=== PATIENT | female | born 1995 | race African-American/Black ===

== ENCOUNTER 2018-02-22 21:32 | Emergency (ER) | payer OTHER, SELFPAY ==
[2018-02-22 21:33] VITALS: BP 135/95; PULSE 102; RESP 14; TEMP 36.8; O2SAT 97; BMI 39.1
--- NOTE | 2018-02-22 22:21 | ED.VISSUMM ---
- ER Visit Summary Date of Service: 02/22/18 Chief Complaint: Finger injury History of Present Illness: The patient is a 22 F who presents following a kickball accident which she attempted to catch the ball bent her right ring finger backwards. She notes swelling and ecchymosis on the finger. Physical Examination: Afebrile vital signs are stable There is some ecchymosis over the volar aspect at the PIP joint. There is mild swelling. Painful range of motion. Neurovascular intact distally. No other injuries noted. Test Results: X-rays revealed a small pull off fracture the volar aspect of the middle phalanx at the PIP joint. Emergency Department Course and Treatment: Patient will be placed in AlumaFoam splint. [facility] Impression: 1. Right ring finger middle phalanx fracture This note was generated with [employer] dictation software. It may contain incorrect words, spelling, and punctuation that were not noted in review of the chart prior to signing ED Disposition - Plan for ED Patient: Disposition: Home or Assisted Living Chief Complaint: Upper Extremity Injury Instructions: ED Fx Finger Closed Referrals: [facility] [GROUP OF PHYSICIANS] - 1 Week
--- NOTE | 2018-02-22 22:25 | ED.DCSUM_ITS ---
- ER Visit Summary Date of Service: 02/22/18 Chief Complaint: Finger injury History of Present Illness: The patient is a 22 F who presents following a kickball accident which she attempted to catch the ball bent her right ring finger backwards. She notes swelling and ecchymosis on the finger. Physical Examination: Afebrile vital signs are stable There is some ecchymosis over the volar aspect at the PIP joint. There is mild swelling. Painful range of motion. Neurovascular intact distally. No other injuries noted. Test Results: X-rays revealed a small pull off fracture the volar aspect of the middle phalanx at the PIP joint. Emergency Department Course and Treatment: Patient will be placed in AlumaFoam splint. [facility] Impression: 1. Right ring finger middle phalanx fracture This note was generated with [employer] dictation software. It may contain incorrect words, spelling, and punctuation that were not noted in review of the chart prior to signing ED Disposition - Plan for ED Patient: Disposition: Home or Assisted Living Chief Complaint: Upper Extremity Injury Instructions: ED Fx Finger Closed Referrals: [facility] [GROUP OF PHYSICIANS] - 1 Week
[2018-02-22 22:50] VITALS: RESP 16
--- NOTE | 2018-02-22 22:50 | RAD_ITS ---
STUDY: X-RAY - RIGHT HAND REASON FOR EXAM: Female, 22 years old. Fourth digit pain after injury. TECHNIQUE: 3 view(s) of the hand. COMPARISON: None. FINDINGS: Normal radiocarpal articulation. Normal distal radioulnar joint. Normal visualized carpal bones. Normal carpal articulations Normal carpometacarpal articulation of the thumb. Normal second through fifth carpometacarpal joints. Normal metacarpi. Normal metacarpophalangeal joint of the thumb. Normal interphalangeal joint of the thumb. Normal proximal and distal phalanges of the thumb. Normal metacarpophalangeal joints of the second through fifth fingers. Normal proximal and distal interphalangeal joints of the second through fifth fingers. Normal phalanges of the second through fifth fingers. The soft tissue structures are unremarkable. RAD/Hand Min 3 Views IMPRESSION: Normal x-ray examination of the hand. Electronically Signed: Guru Douglas MD at 22:18 EDT Tel , Service support ,
== END 2018-02-22 22:50 | disposition home or self-care (01) ==
PROVIDERS: Emergency Provider Emergency Medicine; Family Provider Student in an Organized Health Care Education/Training Program; PCP Student in an Organized Health Care Education/Training Program
DX: S62.624A Displaced fracture of middle phalanx of right ring finger, initial encounter for closed fracture (principal); X50.1XXA Overexertion from prolonged static or awkward postures, initial encounter; Y93.9 Activity, unspecified; Y92.9 Unspecified place or not applicable; Z72.0 Tobacco use
CPT/HCPCS: 73130; 99283

== ENCOUNTER 2019-10-25 22:46 | Emergency (ER) | payer OTHER, SELFPAY ==
[2019-10-25 22:47] VITALS: BP 124/88; PULSE 113; RESP 16; TEMP 36.8; O2SAT 99; BMI 43.8
--- NOTE | 2019-10-25 23:13 | ED.VIS.GEN ---
History of Present Illness Chief Complaint: Vag Bld, Preg Narrative: Patient is a 24-year-old female who presents with lower abdominal pain and vaginal bleeding. She is 17 weeks . She is G1, P0. She has had ultrasounds confirming an intrauterine . She had sexual intercourse last night. Today she was having midline lower abdominal pain and noticed spotting. She notes this is much chief underwriter than a period. No clots. She does report some urinary urgency and frequency. No dysuria. No fevers nausea or vomiting. Past Medical History - Allergies and Home Meds Allergies/Adverse Reactions: Allergies coconut Allergy (Verified 10/25/19 22:49) Rash sertraline HCl [From Zoloft] Adverse Reaction (Verified 10/25/19 22:49) Other Primary Care Physician: Franki Anna DO [Primary Care Provider] - Past Medical History: None Surgical History: no surgical history Smoking Status: Current every day smoker - Family History Maternal Family History: Reports: Heart Disease, Stroke Review of Systems All systems negative except as indicated General: Denies: Fever Eyes: Denies: Visual changes - bilaterally ENT: Denies: Bilateral ear pain Cardiovascular: Denies: Chest pain Respiratory: Denies: Dyspnea Gastrointestinal: Reports: Abdominal pain. Denies: Nausea, Vomiting, Diarrhea Genitourinary: Reports: Frequency. Denies: Dysuria Skin: Denies: Rash Neurological: Denies: Headache Hematologic: Denies: Easy bruising Allergy: Denies: Uticaria Physical Exam Vital Signs/Narrative: Vital Signs Temp Pulse Resp BP Pulse Ox 10/25/19 22:47 98.2 F 113 H 16 124/88 H 99 Inital Vital Signs reviewed: Yes General: Well nourished Head: Normocephalic Eyes: EOMI ENT: Moist mucous membranes Neck: Supple Cardiovascular: Regular rate, Regular rhythm Respiratory: No distress, CTA bilaterally Abdomen: Soft, - - Mild midline lower abdominal tenderness, no guarding, no rebound, no right lower quadrant tenderness Extremities: Nontender Skin: Normal color Neurological: Alert Psychological: Normal affect Diagnostic/Tx/Re-eval Laboratory Results 10/25/19 23:20 Urine Color Yellow Urine Clarity Sl. Cloudy Urine pH 6.0 Ur Specific Brea 1.020 Urine Protein Negative Urine Glucose (UA) Normal Urine Ketones 5 H Urine Occult Blood Negative Urine Nitrite Negative Urine Bilirubin Negative Urine Urobilinogen Normal Ur Leukocyte Esterase 25 H Urine RBC 0 SEEN Urine WBC 0-5 SEEN Ur Squamous Epith Cells 0-5 SEEN Amorphous Sediment 1+ Urine Bacteria 0 SEEN Urine Mucus 0 SEEN - Medical Decision Making Bedside transabdominal [id number] ultrasound shows an intrauterine with heart rate of 136-140. UA not consistent with cystitis. Patient was reassured. Her spotting was most likely related to cervical friability. 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 She understands to return for new or worsening symptoms. All questions answered at bedside patient discharged. ED Disposition - Plan for ED Patient: Disposition: Home or Assisted Living Diagnosis: Vaginal bleeding during Referrals: Franki Anna DO [Primary Care Provider] - Additional Instructions: You were seen today due to vaginal bleeding during . Avoid intercourse, do not place anything in her vagina. Follow-up with your high school business teacher. Return for new or worsening symptoms.
[2019-10-25 23:34] LABS: Bacteria 0 SEEN /hpf (None Seen); Mucous, Urine 0 SEEN /hpf (<or=2+); Red Blood Cells-Urine 0 SEEN /hpf (0-5)
[2019-10-25 23:43] LABS: Color, Urine Yellow (Yellow); Glucose, Dipstick Normal (Normal); Ketone-Dipstick 5 mg/dl (Negative); Leukocyte Esterase-Dipstick 25 /ul (Negative); Nitrite-Dipstick Negative (Negative); Occult Blood-Urine Negative /ul (Negative); Protein-Dipstick Negative (Negative); Urine Bilirubin Dipstick Negative (Negative); Urine Clarity Sl. Cloudy (Clear); Urine Urobilinogen Normal (Normal)
[2019-10-25 23:56] LABS: White Blood Cells 0-5 SEEN /hpf (0-5)
[2019-10-25 23:57] LABS: Amorphous Sediment 1+; Squamous Epithelial Cells - UA 0-5 SEEN /hpf (5-10)
[2019-10-26 00:22] VITALS: BP 122/84; PULSE 88; RESP 16; O2SAT 97
== END 2019-10-26 00:23 | disposition home or self-care (01) ==
PROVIDERS: Emergency Provider Emergency Medicine; Family Provider Student in an Organized Health Care Education/Training Program; PCP Student in an Organized Health Care Education/Training Program
DX: O20.9 Hemorrhage in early pregnancy, unspecified (principal); O99.332 Smoking (tobacco) complicating pregnancy, second trimester; F17.200 Nicotine dependence, unspecified, uncomplicated; Z3A.17 17 weeks gestation of pregnancy
CPT/HCPCS: 81001; 99282

== ENCOUNTER 2020-03-12 04:45 | Inpatient (IN) | payer OTHER, MEDICAID, SELFPAY ==
--- NOTE | 2020-03-09 08:09 | PCM.HP.BLA ---
History and Physical Date of Admission: 03/12/20 Rosemarie Wilson Physician [employer]SM[employer]ION TECHNICIAN H&P Signed Encounter Date: 03/06/2020 Expand All Collapse All Hide copied text Dexter for details Daniella Raygoza is a 24 year old female who presents for PRE OP for C/S. Breech, uncontrolled GDMA and IUGR. Reviewed option for ECV but patient would like to proceed with PRIMARY CS. ? Consent signed today. Pt offers no concerns. ? PAST MEDICAL HISTORY PAST MEDICAL HISTORY Diagnosis Date ? Anxiety ? ? Asthma ? ? childhood ? Gestational diabetes mellitus, class A1 02/26/2020 ? Major depression ? ? Prolactin increased ? ? PAST SURGICAL HISTORY PAST SURGICAL HISTORY Procedure Laterality Date ? PAST SURGICAL HISTORY OF ? ? ? wisdom teeth ? FAMILY HISTORY FAMILY HISTORY Problem Relation Age of Onset ? Heart Mother ? ? valve replaced/endocarditis ? No Known Problems Father ? ? No Known Problems Brother ? ? No Known Problems Sister ? ? No Known Problems Maternal Grandmother ? ? Heart Maternal Grandfather ? ? other (Other) Paternal Grandmother ? ? Bels palsy ? No Known Problems Paternal Grandfather ? ? SOCIAL HISTORY Social History ? Tobacco Use ? Smoking status: Current Every Day Smoker ? ? Years: 6.00 ? ? Last attempt to quit: 08/13/2019 ? ? Years since quittin.5 ? Smokeless tobacco: Never Used ? Tobacco comment: 2 cigarettes a day Substance Use Topics ? Alcohol use: Not Currently ? ? Comment: occasionally-mixed drinks ? Drug use: Never ? CURRENT MEDICATIONS Current Outpatient Medications Medication Sig ? blood sugar diagnostic test strip 1 Strip four times daily. Use as instructed ? Lancets lancets 1 Each four times daily. Use as instructed ? Urine Glucose-Ketones Test (KETO-DIASTIX) strp 1 Strip four times daily. ? Lryohtna-Xm-Zdl-Fe-FA ( VITAMIN) tab Take 1 tablet by mouth. ? No current facility-administered medications for this visit. ? Allergies As of Date: 03/06/2020 Allergen Noted Reaction CELEXA [CITALOPRAM HYDROBROMIDE] 12/09/2015 Other: See Comments COCONUT 10/17/2016 Rash LEXAPRO [ESCITALOPRAM] 12/09/2015 Other: See Comments ZOLOFT [SERTRALINE HCL] 06/11/2014 Other: See Comments ? Fully Assessed 03/06/2020 ? ? REVIEW OF SYSTEMS Abdomen: no pain .. Expanded ROS: GENERAL: Negative for fever Allergies and current medication updated:Yes ? EXAM: BP 122/80 Wt 297 lb (134.7kg) LMP 06/13/2019 GENERAL: pleasant, female in no apparent distress HEENT: Normocephalic and atraumatic NECK: full range of motion DERMATOLOGY: Normal, without lesions, non-icteric and non-hirsute ABDOMEN: Soft, non tender- Gravid PELVIC: closed/thick- narrow pelvis NEURO: alert and oriented x3,exam grossly non-focal EXTREMITIES: normal ? ASSESSMENT AND PLAN: Encounter Diagnosis ? ? ICD-10-CM ? 1. Visit for screening Z36.9 URINE OB DIP B/O ? ? ROUTINE, GROUP B STREP PCR 2. 36 weeks gestation of Z3A.36 URINE OB DIP B/O ? ? ROUTINE, GROUP B STREP PCR 3. Gestational diabetes mellitus (GDM) in third trimester, gestational diabetes method of control unspecified O24.419 ? 4. Intrauterine growth restriction (IUGR) affecting care of mother, third trimester, single or unspecified fetus O36.5930 ? 5. Breech presentation with problem, single or unspecified fetus O32.1XX0 ? ? Pt has been counseled on risks/benefits and alternatives of surgery including but not limited to anesthesia, bleeding, infection, injury to pelvic structures including bowel, bladder, ureters and vessels. Pt wishes to proceed with surgery at this time. ? ECV reviewed with patient- declined. Wishes to proceed with Primary cs. ? ? Rosemarie Reeder MD ?2:34 PM Routine Office Visit on 03/06/2020
[2020-03-12] VITALS (23 sets, daily range): BP systolic 106–140; BP diastolic 57–93; PULSE 72–100; RESP 14–20; TEMP 36.1–36.7; O2SAT 95–100; BMI 49.7
--- NOTE | 2020-03-12 | PLAC_PTH ---
PATIENT: COL[place]EN [place] LOC: [facility] U#:[id number] AGE/SX: 24/F ROOM: WP005 RE03/12/[address]: Dr. Claudette Barakat DO : 1995 BED: 1 DIS: 03/13/2020 SPEC #: [id number] RECD: 03/12/20 11:08 STATUS: ROSAURA RERip #: [id number] BRENDAN: 03/12/20 00:[address]: Claudette Barakat DEPT: SURGICAL PATHOLOGY RECD BY: Sunday Ortiz ENTERED: 03/13/20 10:17 SP TYPE: PLACENTA OTHR DR: Dr. Franki Anna DO Tissues: Placenta, NOS Procedures: Surgery Specimen Level V HEADER OPERATION: Primary section PRE-OP DIAGNOSIS: Labor and delivery TISSUE SUBMITTED: Placenta MICROSCOPIC DIAGNOSIS Placenta: Placental disc - third trimester placenta (455 gm). Membranes - no pathologic diagnosis. Umbilical cord - three blood vessels and no pathologic diagnosis. SJ:asha 03/16/20 MICROSCOPIC DESCRIPTION Slides are reviewed. GROSS DESCRIPTION SPECIMEN: PLACENTA / CLINICAL INFORMATION: A. Weight: 2.632 kg B. Gestational Age: 37 weeks C. Sex: Female PLACENTAL WEIGHT (POST FIXATION): 455 gm PLACENTAL DIMENSIONS: 15 x 16 x 3 cm PLACENTAL SHAPE: Usual ovoid PLACENTAL WEIGHT FOR GESTATIONAL AGE: Within 10-99th percentile MEMBRANES - Present A. Insertion: Marginal B. Site of rupture from edge: 4 cm from edge of placental disc C. Color of membrane: [place] D. Abnormalities: None UMBILICAL CORD - Present A. Color: [place] B. Insertion: Marginal C. Length: 32 cm D. Diameter: 1.1 cm E. Number of vessels: Three F. Abnormalities: None PLACENTAL DISC - Present A. Color of surface: [place] B. surface abnormalities: None C. Maternal cotyledons: Intact with minimal tears D. Attached retro placental clot: No clot E. Cut surface: Dark red and spongy F. Lesions: None G. Separate clot: Absent SECTIONS SUBMITTED: 1. Membrane roll 2. Cord, maternal end 3. Cord, end 4. Placental disc, and maternal surfaces 5. Placental disc, and maternal surfaces 6. Placental disc, and maternal surfaces SJ:asha 03/13/20 TC:4 CPT: 36606
[2020-03-12] MEDS: Lactated Ringers 1,000 ML 999 ML IV (05:10)
[2020-03-12 05:27] LABS: Absolute Lymphocyte Count 2.94 X10^3/uL (0.83-4.51); Absolute Neutrophil Count 10.3 X10^3/uL (2.0-7.7); Basophil# 0.03 X10^3/uL; Basophil% 0.2 % (0-1); Eosinophil# 0.11 X10^3/uL; Eosinophils% 0.7 % (0-5); Hematocrit 33.5 % (37-47); Hemoglobin 11.7 g/dL (12.0-15.0); Lymphocyte # 2.94 X10^3/ul (4.0); Lymphocyte % 19.9 % (19-41); Mean Corp Hgb Conc 34.9 g/dL (32-36); Mean Corpuscular Hgb 32.9 pg (27.0-32.0); Mean Corpuscular Volume 94.1 fL (81-99); Mean Platelet Vol. 9.6 fl (6.2-12.0); Monocyte# 1.16 X10^3/uL; Monocyte% 7.9 % (0-10); NRBC Flagged by Analyzer 0 % (0-5); Neutrophil # 10.33 X10^3/uL (2.7-7.7); Neutrophil % 70.1 % (47-70); Platelet Count 232 K/mm3 (150-450); RBC Distribution Width SD 43.4 fl (35.1-43.9); Red Blood Count 3.56 M/mm3 (4.2-5.4); White Blood Count 14.7 K/mm3 (4.4-11.0)
[2020-03-12] MEDS: Lactated Ringers 1,000 ML 150 ML IV (06:12)
[2020-03-12 06:16] LABS: Bedside Glucose 119 mg/dL (70-110)
[2020-03-12] MEDS: Sodium Citrate/Citric Acid 30 ML UDC PO (07:02)
--- NOTE | 2020-03-12 07:04 | PCM.PN.BLA ---
Progress Note At bedside for ultrasound- breech presentation. Reviewed r/b/a of a section and patient desires to proceed with surgery.
--- NOTE | 2020-03-12 07:18 | NURSING ---
Dr Barakat at bedside and performed bedside US for position. Fetus remains breech. Pt desires primary section. Dr Barakat informed of BS of 119.
[2020-03-12] MEDS: Oxytocin 30 units/NS 500 ml 30 UNITS/500 ML IV.SOLN 167 UNITS IV (08:42)
--- NOTE | 2020-03-12 08:46 | OP.PCM_ITS ---
Problem List (1) 37 weeks gestation of Status: Acute (2) Breech presentation Status: Acute (3) IUGR (intrauterine growth restriction) Status: Acute (4) Gestational diabetes Status: Acute (5) Obesity affecting Status: Acute (6) Hyperprolactinemia Status: Acute (7) History of depression Status: Acute (8) Tobacco use Status: Acute Report of Operation Date of Procedure: 03/12/20 Pre-Operative Diagnosis: 37 week gestation, IUGR, breech presentation, uncontrolled gestational diabetes Post-Operative Diagnosis: As above Surgery/Procedure Performed:: PLTCS via pfannenstiel incision Description of Surgical Findings:: Normal-appearing uterus, bilateral tubes, bilateral ovaries. Clear fluid. Viable female infant in breech presentation. Normal and intact appearing placenta with three-vessel cord. Type of Anesthesia:: Spinal Special Medications: None Specimen's removed: Placenta Drains: You Estimated Blood Loss (mL): 700 Description of Procedure: Reviewed risks, benefits, alternatives to and patient consented to a section. She was taken back to the operating room where spinal anesthesia was found to be adequate. She was prepped and draped in the dorsal position with a leftward tilt. A Pfannenstiel skin incision was made with a scalpel and the incision was carried down to the underlying layer of fascia. The fascia was incised in the midline. Fascia was extended laterally using Dale scissors. The fascia was dissected off of the rectus muscles. Rectus muscles were in the midline. The peritoneum was entered bluntly with good visualization of the bladder. The incision was extended bluntly. A bladder flap was created. A low transverse incision was made on the uterus. Membranes were ruptured for clear fluid. The buttocks of the was elevated, and the was delivered in breech position without any force or delay. Delayed cord clamping was performed. The baby was handed off to the nursery staff. Placenta was delivered with manual extraction and was normal-appearing with a three-vessel cord. Cord gases were collected. Placenta was sent to pathology for review. The uterus was cleared of all clot debris. The uterus was exteriorized from the abdomen. The uterus was closed in a running locked fashion. Hemostasis was noted. Uterus was placed back in the abdomen. The peritoneum was closed in a running fashion. The fascia was closed in a running fashion. Subcutaneous space was irrigated and made hemostatic with Bovie cautery. The subcutaneous was reapproximated. The skin was closed in a subcuticular fashion. Steri-Strips and dressing were placed. Instrument counts were correct. Patient was taken recovery room in stable condition. Grafts/Implants Used: None - Complications None - Admit VTE Documentation VTE Present on Admission: No VTE Mechan Device Prophylaxis: SCD's Delivery Classification: Scheduled Final CHARLI: 04/02/20 Gestational age: 37 Weeks and 0 Days Indications for : Breech Amniotic Membrane Rupture Type: Artificial Amniotic Fluid Description: Clear Placenta Disposition: [facility] Drain: You to straight drain Cord Entanglement: None Cord Vessel Description: 3 Vessels Infant Gender: Female (1 minute): 8 (5 minute): 9 Delayed cord clamping: Yes Pt instructed on risks of surgery: Bleeding, Infection, Need for Future C- Sections, Injury to surrounding structure(s) including bowel and bladder Complications: None - Admit VTE Documentation VTE Present on Admission: No VTE Mechan Device Prophylaxis: SCD's VTE Pharm Prophylaxis ordered?: Yes
--- NOTE | 2020-03-12 09:36 | PCM.PN.BLA ---
Progress Note Patient has a history of hyperprolactinemia. She was following with endocrinology during the . She had an MRI without contrast that did not show a pituitary adenoma. She had follow-up with endocrinology on February 23, and at that time endocrinology discussed risks of breast-feeding with her. Endocrinology noted that she could have growth of an adenoma if present as well as vision loss if she decided to breast-feed. The patient was instructed to call endocrinology if she desired to breast-feed. The patient did not follow-up or call endocrinology, but she desires to breast-feed. Discussed with patient that the MRI was without contrast in , and therefore an adenoma could be missed. Reviewed risks of breast-feeding again with patient which could include growth of adenoma and vision loss. Called endocrinology and left message to discuss plan. Waiting for endocrinology to call back regarding the patient breast-feeding. Discussed with nurse and .
[2020-03-12] MEDS: Lactated Ringers 1,000 ML 100 ML IV (10:37)
[2020-03-12 10:50] LABS: Bedside Glucose 122 mg/dL (70-110)
[2020-03-12 11:10] LABS: Pathology Specimen OB SEE PATHOLOGY REPORT
[2020-03-12] MEDS: Ketorolac 30 MG/ML Syringe IV ×2 (14:02→20:12)
[2020-03-12] MEDS: Ondansetron 4 MG/2 ML Vial IV (16:04)
--- NOTE | 2020-03-12 19:16 | PCM.PN.BLA ---
Progress Note Late entry. Discussed plan of care with endocrinology. Endo recommends formula feeding at this time due to risk of vision loss with . Plan will be for repeat MRI with contrast in a few months. Patient understands that is not recommended at this time. She understands that this could lead to permanent vision loss. She was instructed to notify us of new headaches or visual changes. STROKE Vital Signs/Narrative: Vital Signs Temp Pulse Resp BP Pulse Ox 03/12/20 17:16 86 18 99 03/12/20 16:16 80 20 H 100 03/12/20 16:07 98 F 72 16 123/79 H 100
[2020-03-12] MEDS: Enoxaparin 40 MG/0.4 ML Syringe SC (20:16)
[2020-03-13] MEDS: DiphenhydrAMINE 25 MG Capsule PO (00:38)
[2020-03-13] MEDS: Ketorolac 30 MG/ML Syringe IV ×3 (02:40→15:40)
[2020-03-13] MEDS: 0.9% Saline Lock 10 ML Syringe IV ×3 (02:40→15:39)
[2020-03-13 02:43] VITALS: PULSE 78; RESP 18; O2SAT 100
[2020-03-13 05:31] LABS: Hemoglobin 11.5 g/dL (12.0-15.0); Mean Corp Hgb Conc 32.9 g/dL (32-36); Mean Corpuscular Hgb 31.6 pg (27.0-32.0); Mean Corpuscular Volume 96.2 fL (81-99); Mean Platelet Vol. 9.4 fl (6.2-12.0); Platelet Count 223 K/mm3 (150-450); RBC Distribution Width CV 12.8 % (11.6-14.6); RBC Distribution Width SD 44.1 fl (35.1-43.9); Red Blood Count 3.64 M/mm3 (4.2-5.4); White Blood Count 13.3 K/mm3 (4.4-11.0)
[2020-03-13 05:36] LABS: Scan Indicated on CBC? Y/N NO
[2020-03-13] MEDS: Enoxaparin 40 MG/0.4 ML Syringe SC (08:08)
--- NOTE | 2020-03-13 10:50 | DCINST_ITS ---
Discharge Diet: No Restrictions Discharge Activity: May not drive while taking narcotic pain medications., May Shower May resume sexual activity in: 6 weeks Weight Bearing Status: Weight bearing as tolerated Call your doctor if your incision/area has: Continuous Slow Oozing, Sudden Increased Bleeding, Increased Pain/ Swelling, Increased Redness, Foul Smelling Discharge, Swelling at the incision site Suture Line Care: Avoid Pulling/Pushing, Avoid Pinching/Bending Cleanse incision/area with: Soap & Water Additional Instructions: If you experience any of the following, contact your healthcare provider. * Bleeding that soaks a pad every hour for 2 hours * Fever 100.4 or higher * Unrelieved incision or abdominal pain * Swelling, redness, discharge or bleeding from your incision or episiotomy site * Your incision begins to separate * Problems urinating (including inability to urinate or burning while urinating). * Visual changes * Severe headache * Flu-like symptoms * Pain or redness in one of both of your breasts * Pain, warmth, tenderness or swelling in your legs, especially the calf area * Frequent nausea and vomiting * Symptoms of depression or anxiety If you experience any of the following, call 911 or go to the nearest Emergency Room. * Chest pain * Problems breathing * Seizure activity * Partial or complete paralysis of a body part, slurred speech, weakness or drooping of the face, or a sudden inability to walk or hold your balance * * Please check a FBS daily over the next few days. Please call or message the office with these on Monday. Also please schedule a 2 week check with the office. Allergies/Adverse Reactions: Allergies coconut Allergy (Verified 03/12/20 05:15) Rash sertraline HCl [From Zoloft] Adverse Reaction (Verified 10/25/19 22:49) Other Medications to take at Discharge Pnv No.95/Ferrous Fum/Folic AC [ Formula Tablet] 1 ea PO DAILY 10/25/19 Acetaminophen [Tylenol] 1,000 mg PO Q8H PRN tablet 03/13/20 Ibuprofen 800 mg PO Q8H PRN PRN #30 tab 03/13/20 Oxycodone [Oxyir] 5 mg PO Q6H PRN PRN 5 Days #20 tab 03/13/20 The following prescriptions were given: Ibuprofen 800 mg PO Q8H PRN PRN #30 tab PRN Reason: Pain Score 1-5/10 Transmission Status: Pending to [facility] Oxycodone [Oxyir] 5 mg PO Q6H PRN PRN 5 Days #20 tab PRN Reason: Pain Score 4-10/10 Transmission Status: Sent to [facility] Follow-Up: Call to make an appointment with your doctor for an incision check in 1-2 weeks. You will also need a 6 week post- follow up appointment. Test results from this visit will be discussed in further detail at your follow- up appointment, if applicable. Primary Care Physician: Franki Anna DO [Primary Care Provider] -
--- NOTE | 2020-03-13 10:52 | PCM.PN.OB ---
Patient Problems: Active and Suspected Problems 37 weeks gestation of (Acute) Breech presentation (Acute) IUGR (intrauterine growth restriction) (Acute) Gestational diabetes (Acute) Obesity affecting (Acute) Hyperprolactinemia (Acute) History of depression (Acute) Tobacco use (Acute) Subjective: No complaints. She requests discharge today. - Physical Exam Vitals/I&O's: Vital Signs Temp Pulse Resp BP Pulse Ox 97 F L 78 18 109/78 100 03/12/20 23:56 03/13/20 02:43 03/13/20 02:43 03/12/20 23:56 03/13/20 02:43 Oxygen Delivery Method Room Air Weight: 299 lb Body Mass Index (BMI) 49.7 Finger Stick Blood Glucose 131 Intake and Output for Last 24 Hours 03/11/20 03/12/20 03/13/20 23:59 23:59 23:59 Intake Total 3559 / 3559 Output Total 1200 / 1200 800 / 800 Balance 2359 / 2359 -800 / -800 General: Alert, Oriented x3 Abdomen: Soft, Non Tender, Non-Distended - ff mid & below umb; incision - bandage c/d/i Extremities: No Calf Tenderness Neurological: Cranial nerves II-XII grossly intact Psych/Mental Status: Normal Affect Laboratory Results 03/13/20 05:25: WBC 13.3 H, RBC 3.64 L, Hgb 11.5 L, Hct 35.0 L, MCV 96.2, MCH 31.6, MCHC 32.9 D, RDW Std Deviation 44.1 H, RDW Coeff of Srinivas 12.8, Plt Count 223, MPV 9.4 Current Medications Acetaminophen (Tylenol) 1,000 mg PO Q8H PRN PRN Reason: Pain Score 1-3/10 Bisacodyl (Dulcolax) 10 mg RECTAL UD PRN PRN Reason: If no BM Enoxaparin Sodium (Lovenox) 40 mg SC BID REPLACED BY [facility] Last Admin: 03/13/20 08:08 Dose: 40 mg Documented by: Hydrocortisone (Hytone) 1 applic TOPICAL TID PRN PRN; Protocol PRN Reason: Discomfort Lactated Ringer's () 1,000 mls @ 100 mls/hr IV .Q10H REPLACED BY [facility] Last Admin: 03/12/20 20:17 Dose: Not Given Documented by: Naloxone HCl 4 mg/ Dextrose 504 mls @ 0 mls/hr IV .Q0M PRN; Protocol PRN Reason: To maintain Resp. rate >10 Ibuprofen (Motrin) 600 mg PO Q6H PRN PRN PRN Reason: Pain Score 1-3/10 Ketorolac Tromethamine (Toradol (Bkc)) 30 mg IV Q6H JOLANTA Stop: 03/14/20 09:01 Last Admin: 03/13/20 08:08 Dose: 30 mg Documented by: Methylergonovine Maleate (Methergine) 0.2 mg IM X1 PRN PRN Reason: Uterine Atony Naloxone HCl (Narcan) 0.02 mg IV Q1M PRN PRN Reason: RR <10 and pt unresponsive Ondansetron HCl (Zofran) 4 mg IV Q4H PRN PRN PRN Reason: Nausea Last Admin: 03/12/20 16:04 Dose: 4 mg Documented by: Oxycodone HCl (Oxyir) 5 - 10 mg PO Q4H PRN PRN PRN Reason: Pain Score 4-10/10 Prochlorperazine Edisylate (Compazine Iv) 10 mg IV Q6H PRN PRN PRN Reason: NAUSEA Senna/Docusate Sodium (Senokot-S, Jennifer-Colace) 0 tablet PO DAILY PRN PRN Reason: Constipation Simethicone (Mylicon) 80 mg PO PCHS PRN PRN Reason: Indigestion/stomach pain Sodium Chloride () 5 - 15 ml IV UD PRN PRN Reason: SALINE FLUSH Last Admin: 03/13/20 08:14 Dose: 10 ml Documented by: Medical Necessity - Tobacco Use Smoking Status: Light Smoker (<10/day) Assessment/Plan All Active Problems (Last Reviewed 03/13/18 @ 13:35 by Joaquina Suarez) 37 weeks gestation of (Acute) Breech presentation (Acute) IUGR (intrauterine growth restriction) (Acute) Gestational diabetes (Acute) Obesity affecting (Acute) Hyperprolactinemia (Acute) History of depression (Acute) Tobacco use (Acute) Closed displaced fracture of middle phalanx of right ring finger (Acute) Closed fracture of middle phalanx of right ring finger (Acute) POD#1 Heme - HDS, CBC reviewed ID - AF, no signs infection GI/ - no issues Hyperprolactinemia - patient again advised on risks of (permanent vision loss) and advised to f/u with endocrinology GDM - patient to check FBS at home over the next few days & message results to office D/c home later today per patient request
--- NOTE | 2020-03-13 11:58 | CASEMGMT ---
Social Work Assessment Labor and Delivery Unit Date of Referral: 03/12/2020 Time of Referral: 15:20 Referred By: Dr Claudette Barakat Date of Intervention: 03/13/2020 Time of Intervention: 11:42 Reason for Referral: Mother of baby (MOB) with history of depression. History obtained from: Chart, MOB, nursing staff. Household composition: MOB, Father of baby (FOB) and now this . Patient's parent/guardian status: MOB and FOB, Clementina Lemus have been together for two years. This is first for both parents. Infants name is to be Angel Lemus. MOB and FOB rent a home together. Medical History: MOB . MOB with primary CS due to breech baby at 37 weeks gestation. Medical diagnosis for MOB include depression and Hyperprolactinemia. Per medical team, Hyperprolactinemia puts MOB at risk for developing a tumor if MOB breast feeds. MOB stating plan to breast feed and is aware of medical risk to self. Per medical team there are no risk to with breast feeding. MOB stating that breast feeding is going well. Infant with 's of 8 and 9 at 1 and 5 minutes. Infant with weight of 2632g. Educational Status: MOB stating to have obtained GED. MOB denies any concerns with comprehension or understanding. Financial Status: MOB denies any issues/concerns. MOB and FOB have been laid off work since end of January 2020 due to COVID-19. MOB stating we have savings. MOB and FOB both plan to return to working full-time when able. MOB does plan to take full maternity leave. Infant Supplies: MOB stating to have all needed infant supplies including a crib and car seat. Childcare/Caregiver(s): MOB plans to be main caregiver for until MOB returns to work. MOB's cousin then plans to watch infant when MOB is working. MOB stating that MOB's cousin has a daycare. Transportation: Denies any issues/concerns. Programs/Agencies Involved: Connected with local S for medical. Denies need for WIC but aware of how to apply if need would arise. Explained [facility] program, MOB is interested and open to this social worker health services making referral. Confirmed MOB's address and phone number. Children Services/Legal Issues: MOB denies any legal issues or concerns with either MOB or FOB. MOB stating to feel safe with FOB. Mental Health History: MOB stating to have a history of depression in 2016 when MOB's mother . MOB also with history of suicidal thoughts in 2018, no attempts or hospitalizations. MOB stating to have taken medication in the past for mental health but to no longer take medication for awhile as MOB does not like how they make me feel. MOB stating to believe that MOB is doing well and has been able to talk with support system when MOB is feeling down or depressed. MOB stating that it is helpful to speak with others when MOB is feeling down and that it helps. MOB educated on signs and symptoms of depression and also aware of risk for MOB. MOB stating to have discussed risked with OBGYN in the past as well. MOB provided with information on depression. Substance Use History: MOB is a light tobacco smoker. MOB stating prior to MOB was smoking 1 ppd and is now down to 1-3 a day. MOB stating to not be sure what will happen now that MOB has had . MOB aware of risk of smoking around and is stating to only smoke outside of the home. MOB stating that FOB does not smoke. MOB denies any other substance abuse/use for MOB or FOB. Family History: MOB denies any mental health history of FOB. Maternal and Drug Screens: None completed. Family/Social Stressors: MOB denies any current stressors. This social worker health services did take a moment to broach topic of MOB's mother passing and what emotions MOB may or may not be feeling now with . MOB voicing understanding and stating to be aware of current emotions with infant now in MOB's life and MOB's maternal grandmother not being able to meet . MOB and this social worker health services able to have an open discussion about this and also brought up depression risk in regards to this as well. MOB open to this conversation with this social worker health services. Support Systems: MOB stating to have Many family members. MOB stating that FOB is a positive support as well as MOB's sister and FOB's parents. Depression and Anxiety/Shaken Baby/Safe Sleeping: MOB provided with resources on depression and anxiety, Shaken baby, Safe Sleeping, [facility]. Conversation/education about Shaken Baby and Safe Sleeping was broached with MOB, MOB receptive. ASSESSMENT: Met with MOB in room. Introduced self as well as social worker health services role. currently in nursery obtaining testing. MOB stating to have a connection with infant. MOB stating that was not planned but accepted. MOB presenting with a positive and engaged affect. MOB denies any needs or concerns with returning to home. MOB is hoping to be able to discharge to home with infant on this day, nursing staff is aware of MOB's request. MOB stating things are going well. MOB smiling often towards this social worker health services with appropriate affect to current topic of conversation. MOB voicing no further needs/concerns. Safe Plan of Care for infant related to substance use: MOB planning to smoke outside of the home. Interventions: Social Work assessment Resources provided [facility] referral made. PLAN: Infant to discharge to home with MOB and FOB. No other services requested or indicated. Luicnda HIGH, ROSANNE
[2020-03-13] MEDS: Ibuprofen 600 MG Tablet PO (13:35)
[2020-03-13 15:00] VITALS: BP 132/89; PULSE 80; RESP 16; TEMP 36.8
[2020-03-13 15:40] VITALS: BP 143/82; PULSE 75
== END 2020-03-13 17:05 | disposition home or self-care (01) | DRG 787 ==
PROVIDERS: Admitting Provider Obstetrics & Gynecology; PCP Student in an Organized Health Care Education/Training Program; Referring Provider Obstetrics & Gynecology; Visit Provider Obstetrics & Gynecology
PROC: 10D00Z1 Extraction of Products of Conception, Low, Open Approach (ICD-10-PCS; CPT 59514; principal; 2020-03-12 07:15)
DX: O32.1XX0 Maternal care for breech presentation, not applicable or unspecified (principal); E22.1 Hyperprolactinemia; O99.284 Endocrine, nutritional and metabolic diseases complicating childbirth; O24.429 Gestational diabetes mellitus in childbirth, unspecified control; O36.5930 Maternal care for other known or suspected poor fetal growth, third trimester, not applicable or unspecified; Z3A.37 37 weeks gestation of pregnancy; Z37.0 Single live birth; O99.334 Smoking (tobacco) complicating childbirth; F17.210 Nicotine dependence, cigarettes, uncomplicated; M95.5 Acquired deformity of pelvis
CPT/HCPCS: 82962; 85025; 85027; 86850; 86900; 86901; 88307; 99218; J7120; A4216; G0378; J2405

== ENCOUNTER 2021-07-27 11:32 | Emergency (ER) | payer MEDICAID, SELFPAY ==
[2021-07-27 11:32] VITALS: BP 134/124; PULSE 92; RESP 16; TEMP 36.6; O2SAT 98; BMI 44.9
--- NOTE | 2021-07-27 12:35 | CT_ITS ---
STUDY: CT CERVICAL SPINE WITHOUT CONTRAST REASON FOR EXAM: Female, 26 years old. Injury/Pain RADIATION DOSAGE (If Supplied By Facility): CTDIvol = ( 29.35 ) mGy, DLP = ( 606.62 ) mGycm TECHNIQUE: High resolution transaxial imaging was performed without contrast material. Sagittal and coronal images were reconstructed. Individualized dose optimization techniques were used for this CT. COMPARISON: None FINDINGS: Normal craniovertebral junction. Normal anterior atlantoaxial articulation. Normal odontoid process. There is straightening of the normal cervical lordosis. Normal vertebral bodies and posterior osseous elements. C2-3: Normal endplates. Normal disc height and morphology. Normal central canal and intervertebral neuroforamina. C3-4: Normal endplates. Normal disc height and morphology. Normal central canal and intervertebral neuroforamina. C4-5: Normal endplates. Normal disc height and morphology. Normal central canal and intervertebral neuroforamina. C5-6: Normal endplates. Normal disc height and morphology. Normal central canal and intervertebral neuroforamina. C6-7: Normal endplates. Normal disc height and morphology. Normal central canal and intervertebral neuroforamina. C7-T1: Normal endplates. Normal disc height and morphology. Normal central canal and intervertebral neuroforamina. Normal visualized soft tissue structures. CT/Spine Cervical without Contras IMPRESSION: Normal unenhanced CT examination of the cervical spine. Electronically Signed: Waldemar Sanchez MD at 13:07 EDT , Service support ,
[2021-07-27] MEDS: predniSONE 20 MG Tablet 60 MG PO (13:15)
--- NOTE | 2021-07-27 15:16 | EX.ED.DYSGE1 ---
HPI History of Present Illness Chief Complaint: Other, Pain/Inj Informant: patient Onset/Context/Timing Onset: Weeks (2) Context: Gradual Onset Timing: Continuous Quality: Sharp, dull Location: Neck, bilateral arms Worsened by: Nothing Relieved by: Nothing Narrative Narrative: Patient presents with neck pain that has been getting worse over the past 2 weeks. Patient states it is gradually gotten worse. Patient describes the pain is sharp at times but a constant dull ache. Patient states it is over the neck and radiates into both arms. Patient states nothing makes it worse and nothing makes it better. Patient states her right arm is worse than her left. Patient denies any trauma or injury. Patient denies any paresthesias or weakness. PFSH PFSH Home Medications PNV cmb#95-ferrous fumarate-FA 1 ea PO DAILY 10/25/19 [History Last Taken 1 Day Ago ~03/11/20] acetaminophen 1,000 mg PO Q8H PRN tab 03/13/20 [Rx Last Taken Unknown] ibuprofen 800 mg PO Q8H PRN PRN #30 tab 03/13/20 [Rx Last Taken Unknown] prednisone 60 mg PO DAILY #12 tablet 07/27/21 [Rx Last Taken Unknown] Allergy/AdvReac Type Severity Reaction Status Date / Time coconut Allergy Rash Verified 07/27/21 11:34 sertraline HCl [From Zoloft] AdvReac Other Verified 07/27/21 11:34 Social History Smoking Status: Light Smoker (<10/day) alcohol intake: current alcohol intake frequency: holidays/special occasions only ROS ROS ED Constitutional Constitutional ED: Denies chills or fever(s) Eyes Eyes: Denies blurry vision or change in vision ENT ENT ED: Denies rhinorrhea or sore throat Cardiovascular Cardiovascular: Denies chest pain or palpitations Respiratory/Chest Respiratory/Chest: Denies cough or dyspnea Gastrointestinal Gastrointestinal: Denies nausea or vomiting Genitourinary Genitourinary ED: Denies dysuria or hematuria Musculoskeletal Musculoskeletal: Reports neck pain; Denies back pain Integumentary Denies abscess or rash Neurologic Neurologic: Denies headache(s) or weakness Allergic/Immunologic Allergic/Immunologic ED: Denies mouth swelling or urticaria EXAM Physical Exam Const Vital Signs: 07/27/21 11:32 07/27/21 13:16 Temperature 97.8 F Temperature Source Temporal Pulse Rate 92 Respiratory Rate 16 Respiratory Effort Normal Blood Pressure 134/124 H Blood Pressure Mean 127 Pulse Ox 98 Oxygen Delivery Method Room Air Positive well nourished, well developed and obese General Appearance ED: well developed Nutritional Appearance: obese HEENT Reports moist mucous membranes Neck supple Neck Narrative: There is tenderness over the cervical spine and paraspinal muscles bilaterally. There is some spasm of the paraspinal muscles. Range of motion of the cervical spine was limited in all motion secondary to pain. Strength was 5/5 bilaterally upper and lower extremities. There are no sensory deficits noted. Deep tendon reflexes are 2+/4 bilaterally in the upper extremities. Spurling's test was negative. Extremity normal to inspection General Extremety ED: Negative for edema or tenderness General Extremity: Negative for edema Neuro oriented x3, CN's II-XII intact bilaterally and no sensory deficits noted Sensorium / Orientation: alert Motor Exam: strength 5/5 throughout Psych mental status grossly normal MDM MDM MDM Narrative Medical decision making narrative: Patient was given a dose of prednisone here. Cervical spine CT scan was obtained. There is no acute abnormality noted. This was interpreted by the radiologist and reviewed by myself. Patient was advised of her findings. Patient was given a prescription for prednisone. Patient was instructed to follow-up with her primary care physician in 5 to 7 days. Patient understood and was agreeable with the plan. All questions were answered. Radiography Diagnostic Testing: Radiology Impression Cervical Spine CT 07/27/21 12:35 IMPRESSION: Normal unenhanced CT examination of the cervical spine. Electronically Signed: Waldemar Sanchez MD at 13:07 EDT , Service support , Discharge Plan Triage Chief Complaint: Other, Pain/Inj ED Provider: Osvaldo Gordon Dx/Rx/DC Orders Clinical Impression: Cervical radiculopathy Instructions: ED Radiculopathy, Cervical Prescriptions: New prednisone 20 MG tablet 60 mg PO DAILY Qty: 12 RF: 0 No Action PNV cmb#95-ferrous fumarate-FA 1 EACH tablet 1 ea PO DAILY RF: 0 acetaminophen 500 MG tablet 1,000 mg PO Q8H PRN (Reason: Pain Score 1-3/10) RF: 0 ibuprofen 800 MG tablet 800 mg PO Q8H PRN PRN (Reason: Pain Score 1-5/10) Qty: 30 RF: 0 Primary Care Provider: Franki Anna Referrals: Franki Anna DO [Primary Care Provider] - 5-7 Days Disposition Disposition: Home, Self Care Discharge Date/Time: 07/27/21 15:26
== END 2021-07-27 15:26 | disposition home or self-care (01) ==
PROVIDERS: Emergency Provider Emergency Medicine; PCP Student in an Organized Health Care Education/Training Program
DX: M54.12 Radiculopathy, cervical region (principal); E66.9 Obesity, unspecified; F17.210 Nicotine dependence, cigarettes, uncomplicated; Z79.52 Long term (current) use of systemic steroids; Z79.899 Other long term (current) drug therapy
CPT/HCPCS: 72125; 99283

== ENCOUNTER 2023-02-13 10:31 | Emergency (ER) | payer MEDICAID, SELFPAY ==
[2023-02-13 10:32] VITALS: BP 135/88; PULSE 84; RESP 16; TEMP 36.3; O2SAT 97; BMI 40.0
--- NOTE | 2023-02-13 11:10 | EX.ED.UPPERE ---
HPI History of Present Illness Chief Complaint: Upper Extremity Injury Informant: patient Onset/Context/Timing Onset: Weeks (1) Context: Gradual Onset Timing: Continuous Quality of Pain: Aching Location: anterior R shoulder Current Severity: Moderate Maximum Severity: Moderate Worsened by: certain movements Relieved by: rest, ibuprofen Associated Symptoms Associated Symptoms: Negative for Parasthesia, Weakness or Loss of Funtion Narrative Narrative: Mvwv-[id number]-bduwzoze female presenting with right shoulder pain gradual in onset for the past week. 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 No other areas that are painful. No numbness or tingling or weakness. PFSH PFSH Medical History no medical history no medical history Home Medications vit no.95-ferrous fumarate 28 mg-folic acid 800 mcg tablet 1 ea PO DAILY 10/25/19 [History Last Taken 1 Day Ago ~03/11/20] acetaminophen 500 mg tablet 1,000 mg PO Q8H PRN Pain Score 1-3/10 03/13/20 [Rx Last Taken Unknown] ibuprofen 800 mg tablet 800 mg PO Q8H PRN PRN Pain Score 1-5/10 #30 tabs 03/13/20 [Rx Last Taken Unknown] prednisone 20 mg tablet 60 mg PO DAILY #12 TABLETS 07/27/21 [Rx Last Taken Unknown] meloxicam 15 mg tablet 15 mg PO DAILY #30 tabs 02/13/23 [Rx Last Taken Unknown] Allergy/AdvReac Type Severity Reaction Status Date / Time coconut Allergy Rash Verified 02/13/23 10:34 sertraline HCl [From Zoloft] AdvReac Other Verified 02/13/23 10:34 Social History Smoking Status: Light Smoker (<10/day) alcohol intake: current alcohol intake frequency: holidays/special occasions only ROS ROS ED Constitutional Constitutional ED: Denies chills or fever(s) Musculoskeletal Musculoskeletal: Reports extremity pain; Denies neck pain Integumentary Denies Abrasions, rash or wounds Neurologic Neurologic: Denies paresthesias or weakness EXAM Physical Exam Const Vital Signs: 02/13/23 10:32 Temperature 97.4 F L Temperature Source Temporal Pulse Rate 84 Respiratory Rate 16 Blood Pressure 135/88 H Blood Pressure Mean 103 Pulse Ox 97 Oxygen Delivery Method Room Air Positive well nourished and well developed General Appearance ED: well developed and NAD Neck full ROM and supple Back/Spine normal ROM and normal to inspection Extremity normal to inspection and full ROM Extremity Narrative: No bony tenderness in the right shoulder including the acromioclavicular joint and clavicle, she is tender in the right bicipital groove of the humerus anteriorly, with a positive Yergason and a positive speeds sign. She also has some pain with Maradiaga. She has no pain with scarf test. Negative drop sign. Neurovascularly intact distally, no deformities full range. Neuro oriented x3, no focal motor deficits and no sensory deficits noted Sensorium / Orientation: alert Psych mental status grossly normal and thought process normal Skin no wounds Rashes: no rashes MDM MDM MDM Narrative Medical decision making narrative: Patient's history and exam are most consistent with bicipital tendinitis. Rotator cuff pathology not able to be completely ruled out here. Prescribed meloxicam, I do not think she needs an x-ray right now, and referred to her PCP for possible physical therapy evaluation, I showed her some ways to stretch the biceps, to let pain be her guide, and to follow-up with orthopedics if a month or so is not enough for improvement/resolution. Discharge Plan Triage Chief Complaint: Upper Extremity Injury ED Provider: Marty Marin Dx/Rx/DC Orders Clinical Impression: Bicipital tendinitis of right shoulder Instructions: Biceps Tendonitis Proximal Prescriptions: New meloxicam 15 mg tablet 15 mg PO DAILY Qty: 30 0RF No Action PNV cmb#95-ferrous fumarate-FA 1 EACH tablet 1 ea PO DAILY acetaminophen 500 MG tablet 1,000 mg PO Q8H PRN (Reason: Pain Score 1-3/10) 0RF ibuprofen 800 MG tablet 800 mg PO Q8H PRN PRN (Reason: Pain Score 1-5/10) Qty: 30 0RF prednisone 20 MG tablet 60 mg PO DAILY Qty: 12 0RF Primary Care Provider: Franki Anna Referrals: Franki Anna DO [Primary Care Provider] - Anup De Santiago DO [Med Staff - Active Staff] - (1 month if not improving) Disposition Disposition: Home, Self Care
== END 2023-02-13 11:25 | disposition home or self-care (01) ==
PROVIDERS: Emergency Provider Emergency Medicine; PCP Student in an Organized Health Care Education/Training Program; Visit Provider Emergency Medicine
DX: M75.21 Bicipital tendinitis, right shoulder (principal); F17.200 Nicotine dependence, unspecified, uncomplicated
CPT/HCPCS: 99282

== ENCOUNTER 2023-07-11 17:10 | Emergency (ER) | payer MEDICAID, SELFPAY ==
[2023-07-11 17:13] VITALS: BP 136/85; PULSE 99; RESP 18; TEMP 36.7; O2SAT 100; BMI 35.3
--- NOTE | 2023-07-11 17:35 | ED.VIS.GI ---
HPI HPI - GI History of Present Illness Chief Complaint: Abd Pain Informant: patient Narrative Narrative: Patient presents with nausea vomiting epigastric discomfort. She states she has been having these problems off and on for 6 months or more. She had an upper endoscopy 2 or 3 months ago over at [facility]. She was placed on what sounds like pantoprazole or Prilosec for about a month. She states she does not think it made a difference. She stopped it. She has not followed up. She has intermittent episodes of nausea vomiting epigastric pain. This 1 is little bit worse than normal. Only prior surgery was . She has no back or flank pain. Although she has a history of asthma she is not coughing or having trouble breathing. No chest pain. No fever. She has no urinary symptoms. No pain below the umbilicus. PFSH PFSH Home Medications vit no.95-ferrous fumarate 28 mg-folic acid 800 mcg tablet 1 ea PO DAILY 10/25/19 [History Last Taken 1 Day Ago ~03/11/20] acetaminophen 500 mg tablet 1,000 mg (2 x 500 mg) PO Q8H PRN Pain Score 1-3/10 03/13/20 [Rx Last Taken Unknown] ibuprofen 800 mg tablet 800 mg PO Q8H PRN PRN Pain Score 1-5/10 #30 tabs 03/13/20 [Rx Last Taken Unknown] prednisone 20 mg tablet 60 mg (3 x 20 mg) PO DAILY #12 TABLETS 07/27/21 [Rx Last Taken Unknown] meloxicam 15 mg tablet 15 mg PO DAILY #30 tabs 02/13/23 [Rx Last Taken Unknown] omeprazole 20 mg capsule,delayed release 20 mg PO DAILY #30 CAPSULES 07/11/23 [Rx Last Taken Unknown] ondansetron 4 mg disintegrating tablet 4 mg PO Q8H PRN PRN Nausea #10 tabs 07/11/23 [Rx Last Taken Unknown] Allergy/AdvReac Type Severity Reaction Status Date / Time coconut Allergy Rash Verified 07/11/23 17:12 dimethicone [From [facility]] Allergy Rash Verified 07/11/23 17:13 guaifenesin [From Mucinex] Allergy Hives Verified 07/11/23 17:13 triamcinolone Allergy Rash Verified 07/11/23 17:13 [From [facility]] sertraline HCl [From Zoloft] AdvReac Other Verified 07/11/23 17:12 Social History Smoking Status: Light Smoker (<10/day) alcohol intake: current alcohol intake frequency: holidays/special occasions only ROS ROS ED ROS Narrative A complete review of systems was performed and is negative except as documented in the history of present illness. Some specific details below. Constitutional: No recent fevers or chills. EYE: No visual complaints or pain. No change in eye color. ENT: No difficulty swallowing. No swelling. No pain. No sour acid taste at this time. CV: No chest pain or palpitations. Respiratory: No dyspnea. No hemoptysis. No difficulty taking breaths. She has a history of asthma but is not having problems. She does have an inhaler if needed. GI: Please see history of present illness. : No frequency dysuria or hematuria. Musculoskeletal: No recent trauma. No pains. Skin: No rash. Nondiaphoretic. Neuro: No weakness or numbness. Endocrine: No polyuria or polydipsia. EXAM Physical Exam Narrative Exam Narrative: CONSTITUTIONAL: Patient is nontoxic in appearance. The patient looks comfortable. HEENT: No notable trauma. Mucous membranes does still look moist. No sinus tenderness. No indication of pain with swallowing. EYES: No conjunctival injection. No icterus. CARDIOVASCULAR: Regular rate. Regular rhythm. No notable murmur. No JVD. RESPIRATORY: No respiratory distress. Breathing is unlabored. No wheezes. No rhonchi. No rales. No pain with a deep breath. GASTROINTESTINAL: Not distended. Bowel sounds are normal. Very minimal epigastric only tenderness. No guarding. No rebound. No palpable mass. No bruit. Overall, the exam is relatively benign. GENITOURINARY: No tenderness over the bladder. No CVA tenderness on either side. MUSCULOSKELETAL: Atraumatic. No peripheral edema. NEUROLOGICAL: Patient is alert and appropriate. No focal deficit noted. SKIN: No noted rashes. No diaphoresis. I see no petechiae or purpura. PSYCHIATRIC: Patient is calm. Mood is appropriate. Const Vital Signs: 07/11/23 17:13 07/11/23 19:10 Temperature 98.1 F Temperature Source Temporal Pulse Rate 99 82 Respiratory Rate 18 15 Blood Pressure 136/85 H 107/67 Blood Pressure Mean 102 80 Pulse Ox 100 100 Oxygen Delivery Method Room Air Room Air MDM MDM MDM Narrative Medical decision making narrative: CBC is normal. Electrolytes are normal. No sign of dehydration. Glucose is normal at 81. Calcium is just minimally low. Patient's liver function test are normal. Patient's lipase are normal at 16 Mild patient's urinalysis shows no sign of infection. There are some increased squamous cells. Patient's urine toxicology screen is positive for cocaine and cannabinoids which certainly could cause her some problems. Patient is feeling better. I will get her home on PPI and Zofran. We discussed reasons to return. Repeat exam is benign. Her nausea is gone. Lab Data Attestation: I reviewed the patient's lab results. Labs: Laboratory Results - last 24 hr 07/11/23 07/11/23 17:48 17:52 WBC 8.5 RBC 4.21 Hgb 13.7 Hct 41.3 MCV 98.1 MCH 32.5 H MCHC 33.2 RDW Std Deviation 44.1 H RDW Coeff of Srinivas 12.2 Plt Count 228 MPV 9.1 Immature Gran % (Auto) 0.500 Neut % (Auto) 83.7 H Lymph % (Auto) 10.7 L [place] % (Auto) 4.7 Eos % (Auto) 0.2 Baso % (Auto) 0.2 Absolute Neuts (auto) 7.1 Absolute Lymphs (auto) 0.90 Nucleated RBC % 0 Sodium 136 Potassium 3.5 Chloride 104 Carbon Dioxide 23.0 Anion Gap 9 BUN 9 Creatinine 0.78 Estim Creat Clear Calc 96.62 Est GFR (MDRD) Af Amer 114 Est GFR (MDRD) Non-Af 94 BUN/Creatinine Ratio 11.6 Glucose 81 Calcium 8.3 L Total Bilirubin 0.70 AST 16 ALT 21 Alkaline Phosphatase 61 Total Protein 7.2 Albumin 3.2 Globulin 4.0 Albumin/Globulin Ratio 0.8 L Lipase 16 Urine Color Yellow Urine Clarity Sl. Cloudy Urine pH 6.5 Ur Specific [place] 1.020 Urine Protein 30 H Urine Glucose (UA) Normal Urine Ketones 150 A* Urine Occult Blood 10 H Urine Nitrite Negative Urine Bilirubin 1 H Urine Urobilinogen 8 H Ur Leukocyte Esterase 25 H Urine RBC 0-5 SEEN Urine WBC 0-5 SEEN Ur Squamous Epith Cells 5-10 SEEN Urine Bacteria 1+ Urine Mucus 0 SEEN Urine Opiates Screen NEGATIVE Urine Methadone Screen NEGATIVE Ur Barbiturates Screen NEGATIVE Ur Phencyclidine Scrn NEGATIVE Ur Amphetamines Screen NEGATIVE MDMA (Ecstasy) Screen NEGATIVE U Benzodiazepines Scrn NEGATIVE Urine Cocaine Screen POSITIVE H U Cannabinoids Screen POSITIVE H Ur Drug Screen Comment Discharge Plan Triage Chief Complaint: Abd Pain ED Provider: Feroz Stevens Dx/Rx/DC Orders Clinical Impression: Nausea & vomiting, Abdominal pain, Cocaine use, Use of cannabinoid edibles Instructions: ED Abdominal Pain Unkn Cause Fem Prescriptions: New omeprazole [omeprazole] 20 mg capsule,delayed release(DR/EC) 20 mg PO DAILY Qty: 30 0RF ondansetron [ondansetron] 4 mg tablet,disintegrating 4 mg PO Q8H PRN PRN (Reason: Nausea) Qty: 10 0RF No Action PNV cmb#95-ferrous fumarate-FA 1 EACH tablet 1 ea PO DAILY acetaminophen 500 MG tablet 1,000 mg PO Q8H PRN (Reason: Pain Score 1-3/10) 0RF ibuprofen 800 MG tablet 800 mg PO Q8H PRN PRN (Reason: Pain Score 1-5/10) Qty: 30 0RF prednisone 20 MG tablet 60 mg PO DAILY Qty: 12 0RF meloxicam 15 mg tablet 15 mg PO DAILY Qty: 30 0RF Primary Care Provider: Franki Anna Referrals: Franki Anna DO [Primary Care Provider] - 3-5 Days if not improving Disposition Disposition: Home, Self Care
[2023-07-11 17:53] LABS: Absolute Neutrophil Count 7.1 X10^3/uL (2.0-7.7); Basophil# 0.02 X10^3/uL; Basophil% 0.2 % (0-1); Eosinophil# 0.02 X10^3/uL; Eosinophils% 0.2 % (0-5); Hematocrit 41.3 % (37-47); Hemoglobin 13.7 g/dL (12.0-15.0); Lymphocyte % 10.7 % (19-41); Mean Corp Hgb Conc 33.2 g/dL (32-36); Mean Corpuscular Hgb 32.5 pg (27.0-32.0); Mean Corpuscular Volume 98.1 fL (81-99); Mean Platelet Vol. 9.1 fl (6.2-12.0); Monocyte% 4.7 % (0-10); NRBC Flagged by Analyzer 0 % (0-5); Neutrophil # 7.07 X10^3/uL (2.7-7.7); Neutrophil % 83.7 % (47-70); Platelet Count 228 K/mm3 (150-450); RBC Distribution Width CV 12.2 % (11.6-14.6); RBC Distribution Width SD 44.1 fl (35.1-43.9); Red Blood Count 4.21 M/mm3 (4.2-5.4); White Blood Count 8.5 K/mm3 (4.4-11.0)
[2023-07-11 17:57] LABS: Mucous, Urine 0 SEEN /hpf (<or=2+)
[2023-07-11 18:01] LABS: Color, Urine Yellow (Yellow); Glucose, Dipstick Normal (Normal); Leukocyte Esterase-Dipstick 25 /ul (Negative); Nitrite-Dipstick Negative (Negative); Occult Blood-Urine 10 /ul (Negative); Protein-Dipstick 30 mg/dl (Negative); Urine Clarity Sl. Cloudy (Clear); Urine Urobilinogen 8 mg/dl (Normal); Urine pH 6.5 (5.0 - 8.0)
[2023-07-11] MEDS: Ondansetron 4 MG/2 ML Vial IV (18:03)
[2023-07-11] MEDS: 0.9% Normal Saline 1,000 ML 1000 ML IV (18:03)
[2023-07-11 18:05] LABS: Urine Bilirubin Dipstick 1 mg/dL (Negative)
[2023-07-11 18:07] LABS: Ketone-Dipstick 150 mg/dl (Negative)
[2023-07-11 18:09] LABS: Red Blood Cells-Urine 0-5 SEEN /hpf (0-5); White Blood Cells 0-5 SEEN /hpf (0-5)
[2023-07-11 18:10] LABS: Bacteria 1+ /hpf (None Seen); Squamous Epithelial Cells - UA 5-10 SEEN /hpf (5-10)
[2023-07-11 18:11] LABS: ALB/GLOB Ratio 0.8 RATIO (0.9-2.4); AST(SGOT) 16 U/L (15-37); Alanine Aminotransfer ALT/SGPT 21 U/L (13-56); Albumin, Serum 3.2 g/dL (3.2-5.0); Alkaline Phosphatase 61 U/L (45-117); Anion Gap 9 (5-15); BUN 9 mg/dL (7-18); BUN/Creat Ratio 11.6 RATIO (10-20); Calcium,Total 8.3 mg/dL (8.5-10.1); Chloride 104 mmol/L (98-107); Creatinine, Serum 0.78 mg/dL (0.55-1.02); EST Glomerular Filtration Rate 94 mL/min (>60); Est Glom Filt Rate - Afr Amer 114 mL/min (>60); Estimated Creatinine Clearance 96.62 ml/min; Glucose 81 mg/dL (74-106); Lipase 16 U/L (13-75); Potassium 3.5 mmol/L (3.5-5.1); Protein, Total 7.2 g/dL (6.4-8.2); Sodium Level 136 mmol/L (136-145)
[2023-07-11 18:16] LABS: Amphetamine Urine VISTA NEGATIVE (<1000 ng/mL); Barbiturate Urine VISTA NEGATIVE (< 200 ng/mL); Benzodiazepine Urine VISTA NEGATIVE (< 200 ng/mL); Cocaine Urine VISTA POSITIVE (< 300 ng/mL); Ecstacy Urine VISTA NEGATIVE (< 500 ng/mL); Methadone Urine VISTA NEGATIVE (< 300 ng/mL); PCP Urine VISTA NEGATIVE (< 25 ng/mL); THC Urine VISTA POSITIVE (< 50 ng/mL); Vista UDS pH Range 6
[2023-07-11 19:10] VITALS: BP 107/67; PULSE 82; RESP 15; O2SAT 100
[2023-07-11 20:06] VITALS: BP 107/67; PULSE 82; RESP 15; O2SAT 100
== END 2023-07-11 20:42 | disposition home or self-care (01) ==
PROVIDERS: Emergency Provider Emergency Medicine; PCP Student in an Organized Health Care Education/Training Program; Visit Provider Emergency Medicine
DX: R11.2 Nausea with vomiting, unspecified (principal); F12.99 Cannabis use, unspecified with unspecified cannabis-induced disorder; F17.200 Nicotine dependence, unspecified, uncomplicated; F14.90 Cocaine use, unspecified, uncomplicated; R10.9 Unspecified abdominal pain
CPT/HCPCS: 80053; 80307; 81001; 83690; 85025; 99283; J7030; J2405; J3490

== ENCOUNTER 2023-07-22 03:05 | Emergency (ER) | payer MEDICAID, SELFPAY ==
[2023-07-22 03:06] VITALS: BP 135/80; PULSE 73; RESP 16; TEMP 37.1; O2SAT 98; BMI 36.0
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
--- NOTE | 2023-07-22 03:56 | ED.RN ---
This RN went into pt room to medicate. Pt angry with wait time and refusing CT scan. Dr. Marin in room to confirm with pt that she does not want a CT scan. Pt angry, sating she has been here too long. Dr. Marin attempted to explain to pt that he can give her sutures at any time and she can direct her care whatever way she would like. Pt did not like that answer, stating MD was calling her dumb. Pt stated she wanted to leave without care at this time. Pt walked out of department, had a friend with her.
== END 2023-07-22 04:26 | disposition left against medical advice (07) ==
PROVIDERS: Emergency Provider Emergency Medicine; PCP Student in an Organized Health Care Education/Training Program; Visit Provider Emergency Medicine
DX: S01.81XA Laceration without foreign body of other part of head, initial encounter (principal); F10.129 Alcohol abuse with intoxication, unspecified; F17.200 Nicotine dependence, unspecified, uncomplicated; S09.8XXA Other specified injuries of head, initial encounter; Y04.8XXA Assault by other bodily force, initial encounter; Y92.89 Other specified places as the place of occurrence of the external cause
CPT/HCPCS: 99285

== ENCOUNTER 2023-10-27 10:21 | Emergency (ER) | payer SELFPAY ==
[2023-10-27 10:23] VITALS: BP 121/80; PULSE 69; RESP 16; TEMP 36.1; O2SAT 98; BMI 34.0
--- NOTE | 2023-10-27 11:28 | EX.ED.DYSGE1 ---
HPI History of Present Illness Chief Complaint: General Illness Informant: patient Narrative Narrative: 28-year-old female presenting to the emergency room with 2 separate issues. First is that she chronically has epigastric discomfort. She was diagnosed with GERD had an EGD. She states that she tried Protonix for 2 months and possibly may need to get some more. She states that she needs to see GI but does not have an appointment. She notes worsening pains with certain foods. Her second issue is that she has swollen gland right side of her neck. She notes some discomfort with swallowing. She is a smoker. No reported fevers. No change in voice. PFSH PFSH Medical History History of depression Hyperprolactinemia Use of cannabinoid edibles Home Medications vit no.95-ferrous fumarate 28 mg-folic acid 800 mcg tablet 1 ea PO DAILY 10/25/19 [History Last Taken 1 Day Ago ~03/11/20] acetaminophen 500 mg tablet 1,000 mg (2 x 500 mg) PO Q8H PRN Pain Score 1-3/10 03/13/20 [Rx Last Taken Unknown] ibuprofen 800 mg tablet 800 mg PO Q8H PRN PRN Pain Score 1-5/10 #30 tabs 03/13/20 [Rx Last Taken Unknown] prednisone 20 mg tablet 60 mg (3 x 20 mg) PO DAILY #12 TABLETS 07/27/21 [Rx Last Taken Unknown] meloxicam 15 mg tablet 15 mg PO DAILY #30 tabs 02/13/23 [Rx Last Taken Unknown] omeprazole 20 mg capsule,delayed release 20 mg PO DAILY #30 CAPSULES 07/11/23 [Rx Last Taken Unknown] ondansetron 4 mg disintegrating tablet 4 mg PO Q8H PRN PRN Nausea #10 tabs 07/11/23 [Rx Last Taken Unknown] amoxicillin 875 mg-potassium clavulanate 125 mg tablet 1 tab PO BID #20 tabs 10/27/23 [Rx Last Taken Unknown] pantoprazole 40 mg tablet,delayed release (Protonix) 40 mg PO DAILY #30 tabs 10/27/23 [Rx Last Taken Unknown] sucralfate 1 gram tablet (Carafate) 1 g PO .QID #56 tabs 10/27/23 [Rx Last Taken Unknown] Allergy/AdvReac Type Severity Reaction Status Date / Time coconut Allergy Rash Verified 10/27/23 10:23 dimethicone [From [facility]] Allergy Rash Verified 10/27/23 10:23 guaifenesin [From Mucinex] Allergy Hives Verified 10/27/23 10:23 triamcinolone Allergy Rash Verified 10/27/23 10:23 [From [facility]] sertraline HCl [From Zoloft] AdvReac Other Verified 10/27/23 10:23 Social History Smoking Status: Light Smoker (<10/day) alcohol intake: current alcohol intake frequency: holidays/special occasions only ROS ROS ED Constitutional Constitutional ED: Denies chills or weight loss Eyes Eyes: Denies change in vision or diplopia ENT ENT ED: Reports sore throat; Denies ear pain or rhinorrhea Cardiovascular Cardiovascular: Denies chest pain, orthopnea, palpitations or racing heartbeat Respiratory/Chest Respiratory/Chest: Denies cough, dyspnea or orthopnea Gastrointestinal Gastrointestinal: Reports abdominal pain; Denies diarrhea, nausea or vomiting Genitourinary Genitourinary ED: Denies dysuria, hematuria or urinary frequency Musculoskeletal Musculoskeletal: Reports neck pain; Denies arthralgias or myalgias Integumentary Denies abscess or rash Neurologic Neurologic: Denies headache(s) or weakness Psychiatric Psychiatric: Denies anxiety, depression, suicidal ideation or suicidal thoughts Endocrine Endocrinology: Denies polydipsia, polyphagia or polyuria Allergic/Immunologic Allergic/Immunologic ED: Denies mouth swelling, tongue swelling or urticaria EXAM Physical Exam Const Vital Signs: 10/27/23 10:23 10/27/23 10:40 Temperature 96.9 F L Temperature Source Temporal Pulse Rate 69 Respiratory Rate 16 Respiratory Effort Normal Non-Labored Respiratory Pattern Normal Blood Pressure 121/80 H Blood Pressure Mean 93 Pulse Ox 98 Oxygen Delivery Method Room Air Positive well nourished and well developed General Appearance ED: well developed HEENT Reports normocephalic, head/scalp atraumatic and moist mucous membranes Eyes PERRL and EOMs intact bilaterally Neck supple and no JVD Neck Narrative: Some tender less than half centimeter anterior chain lymph nodes on the right. There is tenderness just posterior and inferior to the angle of the mandible. With some fullness. Oropharyngeal exam demonstrates some erythema just anterior to the right tonsil. There is no tonsillar enlargement or exudate. Uvula appears normal. Floor the mouth appears normal. Mild swelling just anterior to the tonsil makes me question phlegmon versus early peritonsillar abscess. Resp normal respiratory effort and clear to auscultation bilaterally Cardio regular rate, regular rhythm and no murmurs GI normal to inspection, nondistended, normoactive bowel sounds and non-tender Palpation: soft Back/Spine no CVA tenderness and normal ROM Extremity normal to inspection General Extremety ED: Negative for edema General Extremity: Negative for edema Neuro oriented x3 and CN's II-XII intact bilaterally Sensorium / Orientation: alert Motor Exam: strength 5/5 throughout Psych mental status grossly normal Mood & Affect: Negative for depressed or tearful Skin no rashes or lesions noted and no wounds MDM MDM MDM Narrative Medical decision making narrative: Based on her symptomology I am not sure CAT scan would really change her plan. We talked about peritonsillar abscess with to do if it worsens or organizes versus antibiotics. Patient is in agreement that we can do a throat culture and some Augmentin. I think the anterior lymph nodes are reactive to this. She understands that this may all be viral in nature. As far as her chronic GERD I will write for Protonix and Carafate. She needs to schedule with GI. Discharge Plan Triage Chief Complaint: General Illness ED Provider: Jean Ruvalcaba Dx/Rx/DC Orders Clinical Impression: Acute lymphadenitis, Pharyngitis, Chronic GERD Instructions: ED GERD (Adult), ED Peritonsillar Abscess, ED Pharyngitis, Report Pending Prescriptions: New amoxicillin-pot clavulanate 875-125 mg tablet 1 tab PO BID Qty: 20 0RF pantoprazole [Protonix] 40 mg tablet,delayed release (DR/EC) 40 mg PO DAILY Qty: 30 0RF sucralfate [Carafate] 1 gram tablet 1 g PO .QID Qty: 56 0RF No Action PNV cmb#95-ferrous fumarate-FA 1 EACH tablet 1 ea PO DAILY acetaminophen 500 MG tablet 1,000 mg PO Q8H PRN (Reason: Pain Score 1-3/10) 0RF ibuprofen 800 MG tablet 800 mg PO Q8H PRN PRN (Reason: Pain Score 1-5/10) Qty: 30 0RF prednisone 20 MG tablet 60 mg PO DAILY Qty: 12 0RF meloxicam 15 mg tablet 15 mg PO DAILY Qty: 30 0RF omeprazole [omeprazole] 20 mg capsule,delayed release(DR/EC) 20 mg PO DAILY Qty: 30 0RF ondansetron [ondansetron] 4 mg tablet,disintegrating 4 mg PO Q8H PRN PRN (Reason: Nausea) Qty: 10 0RF Primary Care Provider: Franki Anna Referrals: Franki Anna, [Primary Care Provider] - 3-5 Days if not improving Disposition Disposition: Home, Self Care
== END 2023-10-27 11:42 | disposition home or self-care (01) ==
PROVIDERS: Emergency Provider Emergency Medicine; PCP Student in an Organized Health Care Education/Training Program; Visit Provider Emergency Medicine
DX: L04.9 Acute lymphadenitis, unspecified (principal); F17.200 Nicotine dependence, unspecified, uncomplicated; K21.9 Gastro-esophageal reflux disease without esophagitis; J02.9 Acute pharyngitis, unspecified; Z79.899 Other long term (current) drug therapy
CPT/HCPCS: 87070; 99283

== ENCOUNTER 2023-12-14 19:14 | Emergency (ER) | payer MEDICAID, SELFPAY ==
[2023-12-14 19:16] VITALS: BP 128/70; PULSE 50; RESP 16; TEMP 36.6; O2SAT 95; BMI 32.8
--- NOTE | 2023-12-14 19:43 | EDS_ITS ---
HPI <DYLON Mccormick - Last Filed: 12/14/23 20:38> History of Present Illness Chief Complaint: Abd Pain Narrative Narrative: Patient is a 28-year-old female with history of acid reflux who has not taken any medication for several weeks presents to the emergency department for acute on chronic epigastric pain, nausea. Patient states that she has been having epigastric pain for 1 year, worse over the last couple weeks. Patient dates that she has a cough and every now and then can get lightheaded, the cough is also chronic. She is currently not following up with any PCP or GI specialist. Denies any nausea or vomiting. Patient is currently on her menstrual cycle at this time. PFSH <DYLON Mccormick - Last Filed: 12/14/23 20:38> PFSH Medical History History of depression Hyperprolactinemia Use of cannabinoid edibles Home Medications vit no.95-ferrous fumarate 28 mg-folic acid 800 mcg tablet 1 ea PO DAILY 10/25/19 [History Last Taken 1 Day Ago ~03/11/20] acetaminophen 500 mg tablet 1,000 mg (2 x 500 mg) PO Q8H PRN Pain Score 1-3/10 03/13/20 [Rx Last Taken Unknown] ibuprofen 800 mg tablet 800 mg PO Q8H PRN PRN Pain Score 1-5/10 #30 tabs 03/13/20 [Rx Last Taken Unknown] prednisone 20 mg tablet 60 mg (3 x 20 mg) PO DAILY #12 TABLETS 07/27/21 [Rx Last Taken Unknown] meloxicam 15 mg tablet 15 mg PO DAILY #30 tabs 02/13/23 [Rx Last Taken Unknown] omeprazole 20 mg capsule,delayed release 20 mg PO DAILY #30 CAPSULES 07/11/23 [Rx Last Taken Unknown] ondansetron 4 mg disintegrating tablet 4 mg PO Q8H PRN PRN Nausea #10 tabs 07/11/23 [Rx Last Taken Unknown] amoxicillin 875 mg-potassium clavulanate 125 mg tablet 1 tab PO BID #20 tabs 10/27/23 [Rx Last Taken Unknown] pantoprazole 40 mg tablet,delayed release (Protonix) 40 mg PO DAILY #30 tabs 10/27/23 [Rx Last Taken Unknown] sucralfate 1 gram tablet (Carafate) 1 g PO .QID #56 tabs 10/27/23 [Rx Last Taken Unknown] omeprazole 40 mg capsule,delayed release 40 mg PO DAILY #30 caps 12/14/23 [Rx Last Taken Unknown] Allergy/AdvReac Type Severity Reaction Status Date / Time coconut Allergy Rash Verified 12/14/23 19:19 dimethicone [From [facility]] Allergy Rash Verified 12/14/23 19:19 guaifenesin [From Mucinex] Allergy Hives Verified 12/14/23 19:19 triamcinolone Allergy Rash Verified 12/14/23 19:19 [From [facility]] sertraline HCl [From Zoloft] AdvReac Other Verified 12/14/23 19:19 Social History Smoking Status: Light Smoker (<10/day) alcohol intake: current alcohol intake frequency: holidays/special occasions only ROS <DYLON Mccormick - Last Filed: 12/14/23 20:38> ROS ED ROS Narrative Constitutional: Negative for fever, chills, weight loss, weakness Eyes: Negative for vision loss, vision change, double vision ENT: Negative for any sore throat, ear pain, congestion Cardiovascular: Negative for any chest pain, tightness, palpitations Respiratory: Negative for any cough, sputum production, hemoptysis, dyspnea, dyspnea on exertion, orthopnea Gastrointestinal: Negative for any nausea, vomiting, diarrhea, constipation, blood in stool, blood in vomit. Positive for epigastric pain : Negative for any urinary frequency, dysuria, retention, blood in urine Muscle skeletal: Negative for any myalgias, arthralgias, neck pain, back pain Neurological: Negative for any headache, syncope, paresthesias, dizziness Skin: Negative for any rashes, lumps, itching, abrasions, lacerations Psychiatric: Negative for any depression, anxiety, stress, suicidal ideation, homicidal ideation Hematologic: Negative for any easy bruising, excessive bruising, easy bleeding Allergies: Negative for any eczema, hives, rash EXAM <DYLON Mccormick - Last Filed: 12/14/23 20:38> Physical Exam Narrative Exam Narrative: Vital signs reviewed. HEET: Head normocephalic atraumatic, TMs clear bilaterally. Posterior pharynx is clear, moist mucous membranes. Nares clear bilaterally. Neck: Supple with no lymphadenopathy or tenderness. No signs of meningismus. Cardiac: Regular rate and rhythm no murmurs gallops or rubs, equal peripheral pulses bilaterally. Respiratory: Lungs clear to auscultation bilaterally. No chest tenderness. Abdomen: Soft, nontender, nondistended. No abdominal bruit or pulsatile masses. No hepatosplenomegaly Extremities: No peripheral edema, no signs of gross trauma or deformity. Active full range of motion of all extremities. Neuro: Cranial nerves II through XII intact, no focal neurological deficits. Skin: Clean dry and intact with no rash, purpura, petechiae, vesicles or pustules. Backs/flank: No CVA tenderness, no midline spinal tenderness, no deformity. Psych: Normal mood and affect. No SI, HI or acute psychosis. Const Vital Signs: 12/14/23 19:16 Temperature 97.9 F Temperature Source Temporal Pulse Rate 50 L Respiratory Rate 16 Blood Pressure 128/70 H Blood Pressure Mean 89 Pulse Ox 95 Oxygen Delivery Method Room Air Positive well nourished and well developed General Appearance ED: well developed <Dr. Feroz Stevens MD - Last Filed: 12/14/23 20:46> Physical Exam Const Vital Signs: 12/14/23 19:16 Temperature 97.9 F Temperature Source Temporal Pulse Rate 50 L Respiratory Rate 16 Blood Pressure 128/70 H Blood Pressure Mean 89 Pulse Ox 95 Oxygen Delivery Method Room Air MDM <DYLON Mccormick - Last Filed: 12/14/23 20:38> [facility] Lab Data Labs: Laboratory Results - last 24 hr 12/14/23 12/14/23 20:01 20:02 WBC 4.0 L RBC 3.99 L Hgb 12.6 Hct 37.5 MCV 94.0 MCH 31.6 MCHC 33.6 RDW Std Deviation 42.6 RDW Coeff of Srinivas 12.2 Plt Count 235 MPV 9.4 Immature Gran % (Auto) 0.200 Neut % (Auto) 52.4 Lymph % (Auto) 31.8 [place] % (Auto) 14.9 H Eos % (Auto) 0.2 Baso % (Auto) 0.5 Absolute Neuts (auto) 2.1 Absolute Lymphs (auto) 1.28 Nucleated RBC % 0 Sodium 138 Potassium 3.7 Chloride 109 H Carbon Dioxide 24.0 Anion Gap 5 BUN 7 Creatinine 0.88 Estim Creat Clear Calc 105.13 Est GFR (MDRD) Af Amer 98 Est GFR (MDRD) Non-Af 81 BUN/Creatinine Ratio 7.9 L Glucose 92 Calcium 8.8 Total Bilirubin 0.20 AST 30 ALT 29 Alkaline Phosphatase 63 Total Protein 7.4 Albumin 3.4 Globulin 4.0 Albumin/Globulin Ratio 0.8 L Lipase 20 Urine Color Yellow Urine Clarity Clear Urine pH 7.0 Ur Specific [place] 1.010 Urine Protein Negative Urine Glucose (UA) Normal Urine Ketones 5 H Urine Occult Blood 10 H Urine Nitrite Negative Urine Bilirubin Negative Urine Urobilinogen Normal Ur Leukocyte Esterase Negative Urine RBC 0 SEEN Urine WBC 0 SEEN Ur Squamous Epith Cells 0 SEEN Urine Bacteria 0 SEEN Urine Mucus 0 SEEN Urine Test Negative Treatment and Re-Evaluation :: Patient appears generally well, patient appears nontoxic, vital signs are stable. Presenting to the emergency department with complaints of epigastric pain that has been going on for 1 year however worse in the last couple weeks. Differential diagnosis includes acute cholecystitis, GERD, gastritis. Patient will receive abdominal workup including CBC CMP lipase. Patient's urinalysis urine be completed. I have low suspicion of any secondary to patient being on her menstrual cycle. She will be given Zofran, GI cocktail, as well as Toradol. She will be reevaluated. Patient's laboratory values were gross unremarkable, urinalysis was negative for any infection. Patient did have relief of symptoms with Zofran as well as GI co cktail. At this time, patient be placed on omeprazole 40 mg daily, as well as a follow-up with GI. She instructed to try to quit smoking, decrease spicy foods. All questions were answered, patient stable for discharge. <Dr. Feroz Stevens MD - Last Filed: 12/14/23 20:46> [facility] Narrative Medical decision making narrative: I have personally performed a face to face assessment of the patient and have reviewed the OSCAR Note. I performed a substantive portion of the visit including all aspects of the following. My weber findings include: History: Patient has been having epigastric pain for about a year. She had a endoscopy in March. She is not 100% sure what it showed but it did show some areas that were overall. She was on Protonix but is been out of it for a while now. She is trying to eat low acid diet. But she states the epigastric pain just keeps coming back. She essentially never has a day that is not bothering her. Exam: Minimal tenderness if any. Overall relatively benign abdomen. Lungs are clear. Heart is regular. Distal pulses are normal. Medical Decision Making: Blood work showed no marked abnormalities. Lipase is normal. Urine is normal is normal CBC and electrolytes are overall normal. We will get her on omeprazole and have her follow-up. Lab Data Attestation: I reviewed the patient's lab results. Labs: Laboratory Results - last 24 hr 12/14/23 12/14/23 20:01 20:02 WBC 4.0 L RBC 3.99 L Hgb 12.6 Hct 37.5 MCV 94.0 MCH 31.6 MCHC 33.6 RDW Std Deviation 42.6 RDW Coeff of Srinivas 12.2 Plt Count 235 MPV 9.4 Immature Gran % (Auto) 0.200 Neut % (Auto) 52.4 Lymph % (Auto) 31.8 [place] % (Auto) 14.9 H Eos % (Auto) 0.2 Baso % (Auto) 0.5 Absolute Neuts (auto) 2.1 Absolute Lymphs (auto) 1.28 Nucleated RBC % 0 Sodium 138 Potassium 3.7 Chloride 109 H Carbon Dioxide 24.0 Anion Gap 5 BUN 7 Creatinine 0.88 Estim Creat Clear Calc 105.13 Est GFR (MDRD) Af Amer 98 Est GFR (MDRD) Non-Af 81 BUN/Creatinine Ratio 7.9 L Glucose 92 Calcium 8.8 Total Bilirubin 0.20 AST 30 ALT 29 Alkaline Phosphatase 63 Total Protein 7.4 Albumin 3.4 Globulin 4.0 Albumin/Globulin Ratio 0.8 L Lipase 20 Urine Color Yellow Urine Clarity Clear Urine pH 7.0 Ur Specific [place] 1.010 Urine Protein Negative Urine Glucose (UA) Normal Urine Ketones 5 H Urine Occult Blood 10 H Urine Nitrite Negative Urine Bilirubin Negative Urine Urobilinogen Normal Ur Leukocyte Esterase Negative Urine RBC 0 SEEN Urine WBC 0 SEEN Ur Squamous Epith Cells 0 SEEN Urine Bacteria 0 SEEN Urine Mucus 0 SEEN Urine Test Negative Discharge Plan Triage Chief Complaint: Abd Pain ED Midlevel Provider: Frank Little ED Provider: Feroz Stevens Dx/Rx/DC Orders Clinical Impression: Gastroesophageal reflux disease Instructions: ED GERD (Adult) Prescriptions: New omeprazole 40 mg capsule,delayed release(DR/EC) 40 mg PO DAILY Qty: 30 1RF No Action PNV cmb#95-ferrous fumarate-FA 1 EACH tablet 1 ea PO DAILY acetaminophen 500 MG tablet 1,000 mg PO Q8H PRN (Reason: Pain Score 1-3/10) 0RF ibuprofen 800 MG tablet 800 mg PO Q8H PRN PRN (Reason: Pain Score 1-5/10) Qty: 30 0RF prednisone 20 MG tablet 60 mg PO DAILY Qty: 12 0RF meloxicam 15 mg tablet 15 mg PO DAILY Qty: 30 0RF omeprazole [omeprazole] 20 mg capsule,delayed release(DR/EC) 20 mg PO DAILY Qty: 30 0RF ondansetron [ondansetron] 4 mg tablet,disintegrating 4 mg PO Q8H PRN PRN (Reason: Nausea) Qty: 10 0RF amoxicillin-pot clavulanate 875-125 mg tablet 1 tab PO BID Qty: 20 0RF pantoprazole [Protonix] 40 mg tablet,delayed release (DR/EC) 40 mg PO DAILY Qty: 30 0RF sucralfate [Carafate] 1 gram tablet 1 g PO .QID Qty: 56 0RF Primary Care Provider: Franki Anna Referrals: Franki Anna DO [Primary Care Provider] - FriendWilfred DO [Med Staff - Active Staff] - Activity Restrictions/Additional Instructions: Try to decrease spicy foods, quit smoking if you have not already. Follow-up with GI. Take the omeprazole every morning daily. Disposition Disposition: Home, Self Care
--- OUTSIDE RECORDS SUMMARY | 2023-12-14 20:01 | XMS RPT_ITS | CCD ---
Author Name Unknown Address [address] [place] [address] Organization [facility] Care Team Providers Care Block And Case Maker Name Role Phone VIBHA ANN Unavailable Unavailable CONKLE VIBHA Unavailable Unavailable NO REFERRING DR Unavailable Unavailable CONKLE, VIBHA HATTIE Unavailable Unavailable CONKLE VIHBA HATTIE Unavailable Unavailable Unavailable Primary Care Provider Unavailabl e Podlogar MAILING SECTION CLERK.Emelyn BENITO Primary Care Provider PHYSICIAN, NONE Primary Care Physician Unavailab KASANDRA Orta Referring Unavailable PODLOGAR, EMELYN Primary Care Unavailable PODLOGAR, EMELYN Primary Care Unavailable PODLOGAR, EMELYN Primary Care Unavailable PODLOGAR, EMELYN Primary Care Unavailable MARILEE ELDRIDGE Attending Unavailable KASANDRA MORRIS Referring Unavailable PODLOGAR, EMELYN Primary Care Unavailable PODLOGAR, EMELYN Attending Unavailable PODLOGAR, EMELYN Primary Care Unavailable PODLOGAR, EMELYN Referring Unavailable PODLOGAR, EMELYN Primary Care Unavailable JEAN FIGUEROA Attending Unavailable MARILEE ELDRIDGE Referring Unavailable PODLOGAR, EMELNY Primary Care Unavailable KASANDRA MORRIS Attending Unavailable PODLOGAR, EMELYN Primary Care Unavailable KASANDRA MORRIS Attending Unavailable Allergies Allergy Classification Reported Allergen(s) Allergy Type Date of Onset Reaction(s) Facility (1 source) sertraline; Translations: [ZOLOFT] Drug Allergy [facility] Repository (11 sources) citalopram; Translations: [CITALOPRAM HYDROBROMIDE] Drug Allergy 6 Other: See Comments [facility] Repository (11 sources) escitalopram; Translations: [ESCITALOPRAM] Drug Allergy 6 Other: See Comments [facility] Other [place] Repository (11 sources) sertraline; Translations: [SERTRALINE HCL] Drug Allergy 4 Other: See Comments [facility] Repository (10 sources) Coconut extract; Translations: [COCONUT] Drug Allergy 6 Rash [facility] Work Phone: (8 sources) guaiFENesin; Translations: [GUAIFENESIN] Drug Allergy 3 Hives [facility] Medications Current Medications Medication Drug Class(es) Dates Sig (Normalized) Sig (Original) predniSONE 20 mg oral tablet (1 source) Start: 04-13-2023 End: 04-18-2023 take 2 tablets by mouth once daily predniSONE (DELTASONE) 20 mg tablet Indications: URI, acute , History of asthma Take 2 tablets by mouth once daily for 5 days. 10 tablet 0 04/13/2023 04/18/2023 Active Completed/Discontinued Medications Medication Drug Class(es) Dates Sig (Normalized) Sig (Original) benzonatate 100 mg oral capsule (3 sources) Non-narcotic Antitussive Start: 04-13-2023 take 2 capsules by mouth three times daily as needed benzonatate (TESSALON PERLE) 100 mg capsule Indications: URI, acute , History of asthma Take 2 capsules by mouth three times daily as needed. 30 capsule 0 04/13/2023 Active Problems Active Problems Problem Classification Problem Date Documented Date Episodic/Chronic Intracranial injury (1 source) Concussion with loss of consciousness; Translations: [Concussion with loss of consciousness status unknown, initial encounter] Onset: 07-24-2023 Episodic Mood disorders (9 sources) Depressive disorder; Translations: [Depression] Onset: 12-09-2015 12-09-2015 Chronic Mycoses (1 source) Onychomycosis; Translations: [Tinea unguium] Episodic Open wounds of extremities (1 source) Open wound of toe; Translations: [Unspecified open wound of unspecified toe(s) without damage to nail, initial encounter] Episodic Other complications of (9 sources) Obesity; Translations: [Obesity complicating , unspecified trimester] Onset: 08-08-2019 08-08-2019 Chronic Other endocrine disorders (9 sources) Hyperprolactinemia; Translations: [Hyperprolactinemia] Onset: 07-19-2016 02-13-2020 Chronic Other injuries and conditions due to external causes (1 source) Injury of head; Translations: [Unspecified injury of head, initial encounter] Onset: 07-24-2023 Episodic Other lower respiratory disease (1 source) H/O: asthma; Translations: [Personal history of other diseases of the respiratory system] Episodic Other nutritional; endocrine; and metabolic disorders (1 source) Severe obesity; Translations: [Morbid (severe) obesity due to excess calories] Chronic Other nutritional; endocrine; and metabolic disorders (8 sources) Body mass index 40+ - severely obese; Translations: [Morbid (severe) obesity due to excess calories] Onset: 02-24-2023 02-24-2023 Chronic Other nutritional; endocrine; and metabolic disorders (1 source) Morbid (severe) obesity due to excess calories; Translations: [Obesity, Class III, BMI 40-49.9 (morbid obesity) (HCC)] Onset: 02-24-2023 Chronic Other nutritional; endocrine; and metabolic disorders (1 source) Unintentional weight loss; Translations: [Abnormal weight loss] Episodic Other screening for suspected conditions (not mental disorders or infectious disease) (1 source) Cancer cervix screening status; Translations: [Encounter for screening for malignant neoplasm of cervix] Episodic Other skin disorders (1 source) Ingrowing toenail; Translations: [Ingrowing nail] Episodic Other upper respiratory infections (1 source) Acute upper respiratory infection; Translations: [Acute upper respiratory infection, unspecified] Episodic Substance-related disorders (1 source) Nicotine dependence, cigarettes, uncomplicated; Translations: [NICOTINE DEPEND CIGARETT] Onset: 07-09-2017 Chronic Unclassified (2 sources) Other specified disorders of teeth and supporting structures; Translations: [OTH SPEC DISORDERS TEETH] Onset: 07-09-2017 Past or Other Problems Problem Classification Problem Date Documented Date Episodic/Chronic Abdominal pain (7 sources) Epigastric pain; Translations: [Epigastric pain] Onset: 03-23-2023 Episodic Bacterial infection; unspecified site (9 sources) Bacteria present; Translations: [Streptococcus, group B, as the cause of diseases classified elsewhere] Onset: 03-09-2020 03-09-2020 Episodic Diabetes mellitus without complication (9 sources) Prediabetes; Translations: [Prediabetes] Onset: 07-19-2016 07-19-2016 Episodic Disorders of teeth and jaw (1 source) Periapical abscess without sinus; Translations: [PERIAPICAL ABSCESS WITHO] Onset: 07-09-2017 Episodic Immunizations and screening for infectious disease (6 sources) Patient encounter status; Translations: [Encounter for screening for human papillomavirus (HPV)] Onset: 02-21-2023 Episodic Nausea and vomiting (9 sources) Nausea; Translations: [Nausea] Onset: 02-24-2023 Episodic Other complications of (9 sources) Maternal tobacco use; Translations: [Smoking (tobacco) complicating , unspecified trimester] Onset: 08-08-2019 11-22-2019 Episodic Residual codes; unclassified (9 sources) FH: Congenital heart disease; Translations: [Family history of other congenital malformations, deformations and chromosomal abnormalities] Onset: 08-08-2019 08-08-2019 Episodic Residual codes; unclassified (1 source) Other specified health status; Translations: [Vegetarian diet] Onset: 02-24-2023 Episodic Screening and history of mental health and substance abuse codes (18 sources) H/O: psychiatric disorder; Translations: [Personal history of other mental and behavioral disorders] Onset: 12-09-2015 11-08-2021 Episodic Results Test Name Value Interpretation Reference Range Facil ity Vital Signs Date Time Vital Sign Value Performing Clinician Facility 09-21-2023 18:14-0500 Body temperature 97.39 [degF] Mohsen Cason APRN.CNP Work Phone: [facility] 09-21-2023 18:14-0500 Body weight 92.35 kg Mohsen Cason APRN.CNP Work Phone: [facility] 09-21-2023 18:14-0500 Diastolic blood pressure 80 mm[Hg] Mohsen Cason APRN.CNP Work Phone: [facility] 09-21-2023 18:14-0500 Heart rate 76 /min Mohsen Cason APRN.CNP Work Phone: [facility] 09-21-2023 18:14-0500 Respiratory rate 17 /min Mohsen Cason APRN.CNP Work Phone: [facility] 09-21-2023 18:14-0500 SaO2% (BldA) [Mass fraction] 98 % Mohsen Yoav MAILING SECTION CLERK.WIRER MAINTENANCE Work Phone: [facility] 09-21-2023 18:14-0500 Systolic blood pressure 108 mm[Hg] Mohsenjaskaran Cason MAILING SECTION CLERK.WIRER MAINTENANCE Work Phone: [facility] 07-24-2023 20:10-0400 Body temperature 98.24 [degF] DR VITA RIVAS MD [facility] 07-24-2023 20:10-0400 Diastolic Blood Pressure Non-Invasive [address] VITA RIVAS MD [facility] 07-24-2023 20:10-0400 Heart rate 76 /min DR VITA RIVAS MD [facility] 07-24-2023 20:10-0400 Respiratory rate 16 /min DR VITA RIVAS MD [facility] 07-24-2023 20:10-0400 Systolic Blood Pressure Non-Invasive [address] VITA RIVAS MD [facility] 04-13-2023 10:59-0400 Body temperature 98.4 [degF] Mohsenjaskaran Cason MAILING SECTION CLERK.WIRER MAINTENANCE Work Phone: [facility] 04-13-2023 10:59-0400 Body weight 105.87 kg Mohsen Cason MAILING SECTION CLERK.WIRER MAINTENANCE Work Phone: [facility] 04-13-2023 10:59-0400 Diastolic blood pressure 80 mm[Hg] Mohsen Yoav MAILING SECTION CLERK.WIRER MAINTENANCE Work Phone: [facility] 04-13-2023 10:59-0400 Heart rate 82 /min Mohsen Yoav MAILING SECTION CLERK.WIRER MAINTENANCE Work Phone: [facility] 04-13-2023 10:59-0400 Respiratory rate 18 /min Mohsen Yoav MAILING SECTION CLERK.WIRER MAINTENANCE Work Phone: [facility] 04-13-2023 10:59-0400 SaO2% (BldA) [Mass fraction] 99 % Mohsen Cason APRN.WIRER MAINTENANCE Work Phone: [facility] 04-13-2023 10:59-0400 Systolic blood pressure 126 mm[Hg] Mohsen Cason APRN.WIRER MAINTENANCE Work Phone: [facility] 03-23-2023 13:51-0400 Diastolic blood pressure 82 mm[Hg] Jean Figueroa MD Work Phone: [facility] 03-23-2023 13:51-0400 Heart rate 55 /min Jean Figueroa MD Work Phone: [facility] 03-23-2023 13:51-0400 Respiratory rate 14 /min Jean Figueroa MD Work Phone: [facility] 03-23-2023 13:51-0400 SaO2% (BldA) [Mass fraction] 99 % Jean Figueroa MD Work Phone: [facility] 03-23-2023 13:51-0400 Systolic blood pressure 122 mm[Hg] Jean Figueroa MD Work Phone: [facility] 03-23-2023 12:07-0400 Body temperature 97.3 [degF] Jean Figueroa MD Work Phone: [facility] 02-21-2023 13:10-0400 Body height 165.1 cm Kasandra Morris APRN.WIRER MAINTENANCE Work Phone: [facility] 02-21-2023 13:10-0400 Body weight 111.31 kg Kasandra Morris APRN.WIRER MAINTENANCE Work Phone: [facility] 02-21-2023 13:10-0400 Diastolic blood pressure 70 mm[Hg] Kasandra Morris APRN.WIRER MAINTENANCE Work Phone: [facility] 02-21-2023 13:10-0400 Systolic blood pressure 110 mm[Hg] Kasandra Morris APRN.WIRER MAINTENANCE Work Phone: [facility] Encounters Encounter Date Encounter Type Care Provider Facility Start: 09-21-2023 End: 09-21-2023 ambulatory EMELYN PODLOGAR Facility:[facility] Start: 09-21-2023 End: 09-21-2023 Patient encounter procedure Mohsen Cason ISIDRO Work Phone: [facility] Procedures Date Procedure Procedure Detail Performing Clinician Start: 03-23-2023 Level iv surg pathology gross&microscopic exam Jean Figueroa MD Work Phone: Start: 03-23-2023 Esophagogastroduodenoscopy transoral diagnostic Marilee Eldridge PA-C Work Phone: Start: 02-21-2023 Iadna chlamydia trachomatis amplified probe tq Kasandra Morris APRN.WIRER MAINTENANCE Work Phone: Start: 02-21-2023 Urine test visual color cmprsn meths Kasandra Morris APRN.WIRER MAINTENANCE Work Phone: None (qualifier value) DR EVERTON RIVAS MD Plan of Treatment Date Care Activity Detail Author Start: 01-14-2030 Urine microalbumin profile [facility] Start: 02-21-2026 PAP TESTING PAP TESTING [facility] Start: 02-25-2024 COVID-19 VACCINE (#1) COVID-19 VACCI NE (#1) [facility] Immunizations Immunization Date Immunization Notes Care Provider Anayeli virk 02-21-2023 Human Papillomavirus 9-valent vaccine Kasandra Morris APRN.CNP Work Phone: [facility] 08-06-2021 Human Papillomavirus 9-valent vaccine Garry Harrington Work Phone: [facility] 01-15-2020 tetanus toxoid, redu jeane diphtheria toxoid, and acellular pertussis vaccine, adsorbed Garry Harrington Work Phone: [facility] 08-08-2019 influenza, injectabl e, quadrivalent, contains preservative Garry Harrington Work Phone: [facility] Work Phone: 08-08-2019 influenza virus vacc ine, unspecified formulation Kasandra Morris APRN.WIRER MAINTENANCE Work Phone: [facility] 10-17-2017 tetanus toxoid, redu jeane diphtheria toxoid, and acellular pertussis vaccine, adsorbed Garry [employer] Work Phone: [facility] Work Phone: 10-13-2008 human papilloma viru s vaccine, quadrivalent Garry [employer] Work Phone: [facility] Work Phone: 10-13-2008 Meningococcal, MCV4, unspecified conjugate formulation(groups A, C, Y and W-135) Garry [employer] Work Phone: [facility] Work Phone: 07-03-2007 tetanus toxoid, redu jeane diphtheria toxoid, and acellular pertussis vaccine, adsorbed [employer] Work Phone: [facility] Work Phone: 01-27-2000 diphtheria, tetanus toxoids and acellular pertussis vaccine Garry [employer] Work Phone: [facility] Work Phone: 01-27-2000 poliovirus vaccine, inactivated Garry [employer] Work Phone: [facility] Work Phone: 01-27-2000 varicella virus vaccine Santos [facility] [employer] Work Phone: [facility] Work Phone: 03-11-1998 diphtheria, tetanus toxoids and acellular pertussis vaccine Garry [employer] Work Phone: [facility] Work Phone: 03-11-1998 haemophilus influenz ae type b vaccine, HbOC conjugate Garry [employer] Work Phone: [facility] Work Phone: 03-11-1998 hepatitis B vaccine, unspecified formulation Garry [employer] Work Phone: [facility] Work Phone: 03-11-1998 measles, mumps and rubella virus vaccine Garry [employer] Work Phone: [facility] Work Phone: 09-12-1996 measles, mumps and rubella virus vaccine Garry [employer] Work Phone: [facility] Work Phone: 05-09-1996 diphtheria, tetanus toxoids and pertussis vaccine Garry [employer] Work Phone: [facility] Work Phone: 05-09-1996 haemophilus influenz ae type b vaccine, conjugate unspecified formulation Garry [employer] Work Phone: [facility] Work Phone: 05-09-1996 trivalent poliovirus vaccine, live, oral Garry [employer] Work Phone: [facility] Work Phone: 02-15-1996 diphtheria, tetanus toxoids and pertussis vaccine Garry [employer] Work Phone: [facility] Work Phone: 02-15-1996 haemophilus influenz ae type b vaccine, conjugate unspecified formulation Garry [employer] Work Phone: [facility] Work Phone: 02-15-1996 hepatitis B vaccine, unspecified formulation [employer] Work Phone: [facility] Work Phone: 02-15-1996 trivalent poliovirus vaccine, live, oral [employer] Work Phone: [facility] Work Phone: 1995 diphtheria, tetanus toxoids and pertussis vaccine Garry [employer] Work Phone: [facility] Work Phone: 1995 haemophilus influenz ae type b vaccine, conjugate unspecified formulation [employer] Work Phone: [facility] Work Phone: 1995 hepatitis B vaccine, unspecified formulation Garry [employer] Work Phone: [facility] Work Phone: 1995 trivalent poliovirus vaccine, live, oral Garry Harrington Work Phone: [facility] Work Phone: Payers Date Payer Category Payer Medicaid [employer] [employer] [id number] 2022-Present [phone] [place] [address] Medicaid [id number] 2022 Medicaid [id number] 2019 Medicaid [employer] [employer] [employer] [id number] 2019-Present [phone] [place] [address] Medicaid [id number] Unknown [id number] Social History Date Type Detail Facility Start: 11-22-2019 End: 02-24-2023 Tobacco smoking status WVIS Smokes tobacco daily [facility] Work Phone: Start: 11-22-2019 End: 08-08-2023 Cigarettes smoked current (pack per day) - Reported 0.5 [facility] Start: 11-22-2019 End: 02-24-2023 Tobacco use and exposure Smokeless tobacco non-user [facility] Work Phone: Start: 04-05-2022 End: 09-21-2023 Alcohol intake Current drinker of alcohol (finding) [facility] Start: 12-20-2021 History SDOH Alcohol Std Drinks 1 [facility] Start: 12-09-2015 History SDOH Alcohol Comment occasionally-mixed drinks [facility] Start: 12-20-2021 History SDOH Social Connections Phone 5 [facility] Start: 12-20-2021 History SDOH Social Connections Get Together 2 [facility] Start: 12-20-2021 History SDOH Social Connections Living 8 [facility] Start: 12-20-2021 History SDOH Physical Activity MPS 3 [facility] Start: 12-20-2021 History SDOH Financial 4 [facility] Start: 1995 Sex Assigned At Female [facility] Start: 03-26-2022 End: 04-05-2022 Exposure to SARS-CoV-2 (event) Not sure [facility] Work Phone: Start: 04-16-2022 End: 04-26-2022 Exposure to SARS-CoV-2 (event) Yes [facility] History of tobacco use Cigarette Smoker C [facility] Start: 07-04-2019 Tobacco smoking status Heavy tobacco smoker (finding) [facility] Start: 12-20-2021 End: 08-08-2023 Social connection and isolation panel [facility] Do you belong to any clubs or organizations such as synagogue groups, unions, [employer] or athletic groups, or school groups? No [facility] Are you now , , , , never or living with a partner? Living with partner [facility] Frequency of Alcohol Consumption Not on file [facility] How many standard dr inks containing alcohol do you have on a typical day? 1 or 2 [facility] How often do you hav e 6 or more drinks on 1 occasion? Never [facility] How hard is it for y ou to pay for the very basics like food, housing, medical care, and heating Not very hard [facility] Do you feel stress - tense, restless, nervous, or anxious, or unable to sleep at night because your mind is troubled all the time - these days [OSQ] To some extent [facility] (I/We) worried wheth er (my/our) food would run out before (I/we) got money to buy more. Never true [facility] Start: 12-20-2021 Gender identity Identifies as female gender (finding) [facility] Start: 12-20-2021 Sexual orientation Heterosexual (finding) [facility] Functional Status Date Assessment Result Facility 07-24-2023 Functional Status Awake Radha Matthew [facility] Mental Status Date Assessment Result Facility 07-24-2023 Mental Status Oriented x 4 [place] Darshanait al [facility] Clinical Notes 02-26-2020 to 09-21-2023 Mohsen Cason APRN.WIRER MAINTENANCE - 09/21/2023 6:35 PM Trey Cason APRN.WIRER MAINTENANCE - 04/13/2023 11:19 AM Dea Ambrosio RN - 03/23/2023 1:33 PM Jean Voss MD - 03/23/2023 1:15 PM EDT Note Date & Type Note Facility 09-21-2023 Note HNO ID: [id number] Author: Mohsen Cason APRN.WIRER MAINTENANCE Service: ? Author Type: Nurse Practitioner Type: Progress Notes Filed: 09/21/2023 6:38 PM Note Text: Subjective HPI HPI Daniella Raygoza is a 28 year old female who presents today for CC of nausea, vomiting, dizziness, weakness. This started 2 days ago but has been ongoing for months, has seen specialist and had EGD. Has tried zofran without relief. Symptoms are worsened by nothing. Denies possibility of being . Last void earlier today. Needs work note today. .Patient presents with: Nausea AND Vomiting: Dizziness, fatigue, cough x 2 days PAST MEDICAL HISTORY Diagnosis Date Anxiety Asthma childhood Gestational diabetes mellitus, class A1 02/26/2020 Major depression Prolactin increased PAST SURGICAL HISTORY Procedure Laterality Date DELIVERY ONLY 03/12/2020 C/S low transverse EGD W/O BRSH SPEC VARICIES INJ 03/23/2023 PAST SURGICAL HISTORY OF wisdom teeth ALLERGIES Celexa [Citalopram Hydrobromide], Coconut, Lexapro [Escitalopram], Mucinex [Guaifenesin], and Zoloft [Sertraline Hcl] MEDICATIONS desogestrel-ethinyl estradiol (APRI ORAL) Take by mouth. pantoprazole DR (PROTONIX) 20 mg tablet Take 1 tablet by mouth once daily. ondansetron orally disintegrating (ZOFRAN ODT) 4 mg disintegrating tablet Take 1 tablet by mouth every 6 hours as needed for nausea/vomiting. promethazine (PHENERGAN) 12.5 mg tablet Take 1 tablet by mouth every 6 hours as needed. benzonatate (TESSALON PERLE) 100 mg capsule Take 2 capsules by mouth three times daily as needed. (Patient not taking: Reported on 09/21/2023) Multivitamin capsule Take 1 capsule by mouth once daily. (Patient not taking: Reported on 09/21/2023) FAMILY HISTORY Problem Relation Age of Onset Heart Mother valve replaced/endocarditis Alcohol abuse Father No Known Problems Sister No Known Problems Brother No Known Problems Maternal Grandmother Heart Maternal Grandfather other (Other) Paternal Grandmother Bels palsy Heart disease Paternal Grandfather Oxygen Dependent Paternal Grandfather Social History Tobacco Use Smoking status: Every Day Packs/day: .5 Types: Cigarettes Smokeless tobacco: Never Vaping Use Vaping Use: Never used Substance Use Topics Alcohol use: Yes Comment: occasionally-mixed drinks Drug use: Yes Types: Marijuana Comment: 2-3/week ROS Objective Blood pressure 108/80, pulse 76, temperature 36.3 ?C (97.4 ?F), resp. rate 17, weight 92.4 kg (203 lb 9.6 oz), last menstrual period 08/01/2023, SpO2 98 %. Physical Exam Constitutional: General: She is not in acute distress. Appearance: Normal appearance. She is not toxic-appearing. Cardiovascular: Rate and Rhythm: Normal rate and regular rhythm. Heart sounds: Normal heart sounds. Pulmonary: Effort: Pulmonary effort is normal. Breath sounds: Normal breath sounds. Abdominal: General: Bowel sounds are normal. Palpations: Abdomen is soft. Tenderness: There is no abdominal tenderness. Skin: General: Skin is warm and dry. ASSESSMENT/PLAN: 1. Nausea - ICD9: 787.02, ICD10: R11.0 Vs/exam negative today. Diet/hydration discussed Go to ER for abdominal pain/dehydration. - PROMETHAZINE 12.5 MG TABLET Mohsen Cason APRN.[facility] 09-21-2023 History of Presen t illness Narrative Subjective HPI HPI Daniella Raygoza is a 28 year old female who presents today for CC of nausea, vomiting, dizziness, weakness. This started 2 days ago but has been ongoing for months, has seen specialist and had EGD. Has tried zofran without relief. Symptoms are worsened by nothing. Denies possibility of being . Last void earlier today. Needs work note today. .Patient presents with: Nausea & Vomiting: Dizziness, fatigue, cough x 2 days PAST MEDICAL HISTORY Diagnosis Date Anxiety Asthma childhood Gestational diabetes mellitus, class A1 02/26/2020 Major depression Prolactin increased PAST SURGICAL HISTORY Procedure Laterality Date DELIVERY ONLY 03/12/2020 C/S low transverse EGD W/O BRSH SPEC VARICIES INJ 03/23/2023 PAST SURGICAL HISTORY OF wisdom teeth ALLERGIES Celexa [Citalopram Hydrobromide], Coconut, Lexapro [Escitalopram], Mucinex [Guaifenesin], and Zoloft [Sertraline Hcl] MEDICATIONS desogestrel-ethinyl estradiol (APRI ORAL) Take by mouth. pantoprazole DR (PROTONIX) 20 mg tablet Take 1 tablet by mouth once daily. ondansetron orally disintegrating (ZOFRAN ODT) 4 mg disintegrating tablet Take 1 tablet by mouth every 6 hours as needed for nausea/vomiting. promethazine (PHENERGAN) 12.5 mg tablet Take 1 tablet by mouth every 6 hours as needed. benzonatate (TESSALON PERLE) 100 mg capsule Take 2 capsules by mouth three times daily as needed. (Patient not taking: Reported on 09/21/2023) Multivitamin capsule Take 1 capsule by mouth once daily. (Patient not taking: Reported on 09/21/2023) FAMILY HISTORY Problem Relation Age of Onset Heart Mother valve replaced/endocarditis Alcohol abuse Father No Known Problems Sister No Known Problems Brother No Known Problems Maternal Grandmother Heart Maternal Grandfather other (Other) Paternal Grandmother Bels palsy Heart disease Paternal Grandfather Oxygen Dependent Paternal Grandfather Social History Tobacco Use Smoking status: Every Day Packs/day: .5 Types: Cigarettes Smokeless tobacco: Never Vaping Use Vaping Use: Never used Substance Use Topics Alcohol use: Yes Comment: occasionally-mixed drinks Drug use: Yes Types: Marijuana Comment: 2-3/week ROS Objective Blood pressure 108/80, pulse 76, temperature 36.3 C (97.4 F), resp. rate 17, weight 92.4 kg (203 lb 9.6 oz), last menstrual period 08/01/2023, SpO2 98 %. Physical Exam Constitutional: General: She is not in acute distress. Appearance: Normal appearance. She is not toxic-appearing. Cardiovascular: Rate and Rhythm: Normal rate and regular rhythm. Heart sounds: Normal heart sounds. Pulmonary: Effort: Pulmonary effort is normal. Breath sounds: Normal breath sounds. Abdominal: General: Bowel sounds are normal. Palpations: Abdomen is soft. Tenderness: There is no abdominal tenderness. Skin: General: Skin is warm and dry. ASSESSMENT/PLAN: 1. Nausea - ICD9: 787.02, ICD10: R11.0 Vs/exam negative today. Diet/hydration discussed Go to ER for abdominal pain/dehydration. - PROMETHAZINE 12.5 MG TABLET Mohsen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 alcohol or other drugs that cause drowsiness, such as benzodiazepines, also known as benzos, including diazepam and alprazolam, muscle relaxants or sleep aids. Never sell or share prescription opioids. This is illegal. Store opioids in a secure place and out of reach of others (including children, family, friends and visitors). The last page(s) of this document has been signed and retained as a CHART COPY Signatures Patient Education Materials Coping with Concussion Head Injury (Adult) Medication Leaflets My discharge plan and instructions have been reviewed and explained to me and I,DANIELLA RAYGOZA understand my current condition and have read and understand these discharge instructions. I have received a written copy of the plan/instructions. If I have questions, I am aware that I should contact my doctor. Patient/Commercial Underwriter Signature: Date/Time: Relationship to Patient: Witness Name/Signature: Date/Time: [facility] 04-13-2023 Note HNO ID: [id number] Author: Mohsen Cason APRN.[employer] Service: ? Author Type: Nurse Practitioner Type: Progress Notes Filed: 04/13/2023 12:29 PM Note Text: Subjective HPI HPI Daniella Raygoza is a 27 year old female who presents today for CC of st, cough, congestion, ear pain. This started 3 days ago. Has tried otc medication for relief. Symptoms are worsened by nothing. Risk factors, no known sick exposures. smoker. Denies possibility of being . .Patient presents with: Cough: Pt reported chest congestion, (LT) ear pain x3 days. PAST MEDICAL HISTORY Diagnosis Date Anxiety Asthma childhood Gestational diabetes mellitus, class A1 02/26/2020 Major depression Prolactin increased PAST SURGICAL HISTORY Procedure Laterality Date DELIVERY ONLY 03/12/2020 C/S low transverse COLONOSCOPY SCREENING N/A 03/23/2023 To be done under MAC per Dr Figueroa PAST SURGICAL HISTORY OF wisdom teeth ALLERGIES Celexa [Citalopram Hydrobromide], Coconut, Lexapro [Escitalopram], Mucinex [Guaifenesin], and Zoloft [Sertraline Hcl] MEDICATIONS pantoprazole DR (PROTONIX) 20 mg tablet Take 1 tablet by mouth once daily. Multivitamin capsule Take 1 capsule by mouth once daily. ondansetron orally disintegrating (ZOFRAN ODT) 4 mg disintegrating tablet Take 1 tablet by mouth every 6 hours as needed for nausea/vomiting. Desogestrel-Ethinyl Estradiol (APRI) 0.15-0.03 mg per tablet Take 1 tablet by mouth once daily. predniSONE (DELTASONE) 20 mg tablet Take 2 tablets by mouth once daily for 5 days. benzonatate (TESSALON PERLE) 100 mg capsule Take 2 capsules by mouth three times daily as needed. FAMILY HISTORY Problem Relation Age of Onset Heart Mother valve replaced/endocarditis Alcohol abuse Father No Known Problems Sister No Known Problems Brother No Known Problems Maternal Grandmother Heart Maternal Grandfather other (Other) Paternal Grandmother Bels palsy Heart disease Paternal Grandfather Oxygen Dependent Paternal Grandfather Social History Tobacco Use Smoking status: Every Day Packs/day: 0.50 Types: Cigarettes Smokeless tobacco: Never Vaping Use Vaping Use: Never used Substance Use Topics Alcohol use: Yes Comment: occasionally-mixed drinks Drug use: Yes Types: Marijuana Comment: 2-3/week Review of Systems Constitutional: Negative for fever. HENT: Positive for congestion, ear pain and sore throat. Negative for ear discharge and nosebleeds. Respiratory: Positive for cough. Negative for shortness of breath and wheezing. Cardiovascular: Negative for chest pain. Musculoskeletal: Negative for neck pain. Skin: Negative for itching and rash. Objective Blood pressure 126/80, pulse 82, temperature 36.9 ?C (98.4 ?F), temperature source Tympanic, resp. rate 18, weight 105.9 kg (233 lb 6.4 oz), last menstrual period 03/23/2023, SpO2 99 %. Physical Exam Constitutional: General: She is not in acute distress. Appearance: She is not toxic-appearing or diaphoretic. HENT: Head: Normocephalic and atraumatic. Right Ear: Hearing, tympanic membrane, ear canal and external ear normal. Left Ear: Hearing, tympanic membrane, ear canal and external ear normal. Nose: Nose normal. Mouth/Throat: Pharynx: Uvula midline. No pharyngeal swelling, oropharyngeal exudate, posterior oropharyngeal erythema or uvula swelling. Eyes: General: Lids are normal. No scleral icterus. Right eye: No discharge. Left eye: No discharge. Conjunctiva/sclera: Conjunctivae normal. Pupils: Pupils are equal, round, and reactive to light. Neck: Trachea: Trachea normal. Cardiovascular: Rate and Rhythm: Normal rate and regular rhythm. Heart sounds: Normal heart sounds. Pulmonary: Effort: Pulmonary effort is normal. Breath sounds: Normal breath sounds. Musculoskeletal: Cervical back: Normal range of motion and neck supple. Lymphadenopathy: Cervical: No cervical adenopathy. Right cervical: No superficial cervical adenopathy. Left cervical: No superficial cervical adenopathy. Skin: Findings: No rash. Neurological: Mental Status: She is alert and oriented to person, place, and time. ASSESSMENT/PLAN: 1. URI, acute - ICD9: 465.9, ICD10: J06.9 (primary diagnosis) - Discussed viral etiology and rationale for treatment. - Symptomatic treatment with prn analgesia - Supportive care with fluids and rest - Follow up in 3-5 days if symptoms persist or sooner if worsening of symptoms - PREDNISONE 20 MG TABLET - BENZONATATE 100 MG CAPSULE 2. History of asthma - ICD9: V12.69, ICD10: Z87.09 -use medication as prescribed -follow up if symptoms persist, worsen, change - PREDNISONE 20 MG TABLET - BENZONATATE 100 MG CAPSULE No problem-specific Assessment AND Plan notes found for this encounter. [facility] 04-13-2023 History of Presen t illness Narrative Subjective HPI HPI Daniella Raygoza is a 27 year old female who presents today for CC of st, cough, congestion, ear pain. This started 3 days ago. Has tried otc medication for relief. Symptoms are worsened by nothing. Risk factors, no known sick exposures. smoker. Denies possibility of being . .Patient presents with: Cough: Pt reported chest congestion, (LT) ear pain x3 days. PAST MEDICAL HISTORY Diagnosis Date Anxiety Asthma childhood Gestational diabetes mellitus, class A1 02/26/2020 Major depression Prolactin increased PAST SURGICAL HISTORY Procedure Laterality Date DELIVERY ONLY 03/12/2020 C/S low transverse COLONOSCOPY SCREENING N/A 03/23/2023 To be done under MAC per Dr Figueroa PAST SURGICAL HISTORY OF wisdom teeth ALLERGIES Celexa [Citalopram Hydrobromide], Coconut, Lexapro [Escitalopram], Mucinex [Guaifenesin], and Zoloft [Sertraline Hcl] MEDICATIONS pantoprazole DR (PROTONIX) 20 mg tablet Take 1 tablet by mouth once daily. Multivitamin capsule Take 1 capsule by mouth once daily. ondansetron orally disintegrating (ZOFRAN ODT) 4 mg disintegrating tablet Take 1 tablet by mouth every 6 hours as needed for nausea/vomiting. Desogestrel-Ethinyl Estradiol (APRI) 0.15-0.03 mg per tablet Take 1 tablet by mouth once daily. predniSONE (DELTASONE) 20 mg tablet Take 2 tablets by mouth once daily for 5 days. benzonatate (TESSALON PERLE) 100 mg capsule Take 2 capsules by mouth three times daily as needed. FAMILY HISTORY Problem Relation Age of Onset Heart Mother valve replaced/endocarditis Alcohol abuse Father No Known Problems Sister No Known Problems Brother No Known Problems Maternal Grandmother Heart Maternal Grandfather other (Other) Paternal Grandmother Bels palsy Heart disease Paternal Grandfather Oxygen Dependent Paternal Grandfather Social History Tobacco Use Smoking status: Every Day Packs/day: 0.50 Types: Cigarettes Smokeless tobacco: Never Vaping Use Vaping Use: Never used Substance Use Topics Alcohol use: Yes Comment: occasionally-mixed drinks Drug use: Yes Types: Marijuana Comment: 2-3/week Review of Systems Constitutional: Negative for fever. HENT: Positive for congestion, ear pain and sore throat. Negative for ear discharge and nosebleeds. Respiratory: Positive for cough. Negative for shortness of breath and wheezing. Cardiovascular: Negative for chest pain. Musculoskeletal: Negative for neck pain. Skin: Negative for itching and rash. Objective Blood pressure 126/80, pulse 82, temperature 36.9 C (98.4 F), temperature source Tympanic, resp. rate 18, weight 105.9 kg (233 lb 6.4 oz), last menstrual period 03/23/2023, SpO2 99 %. Physical Exam Constitutional: General: She is not in acute distress. Appearance: She is not toxic-appearing or diaphoretic. HENT: Head: Normocephalic and atraumatic. Right Ear: Hearing, tympanic membrane, ear canal and external ear normal. Left Ear: Hearing, tympanic membrane, ear canal and external ear normal. Nose: Nose normal. Mouth/Throat: Pharynx: Uvula midline. No pharyngeal swelling, oropharyngeal exudate, posterior oropharyngeal erythema or uvula swelling. Eyes: General: Lids are normal. No scleral icterus. Right eye: No discharge. Left eye: No discharge. Conjunctiva/sclera: Conjunctivae normal. Pupils: Pupils are equal, round, and reactive to light. Neck: Trachea: Trachea normal. Cardiovascular: Rate and Rhythm: Normal rate and regular rhythm. Heart sounds: Normal heart sounds. Pulmonary: Effort: Pulmonary effort is normal. Breath sounds: Normal breath sounds. Musculoskeletal: Cervical back: Normal range of motion and neck supple. Lymphadenopathy: Cervical: No cervical adenopathy. Right cervical: No superficial cervical adenopathy. Left cervical: No superficial cervical adenopathy. Skin: Findings: No rash. Neurological: Mental Status: She is alert and oriented to person, place, and time. ASSESSMENT/PLAN: 1. URI, acute - ICD9: 465.9, ICD10: J06.9 (primary diagnosis) - Discussed viral etiology and rationale for treatment. - Symptomatic treatment with prn analgesia - Supportive care with fluids and rest - Follow up in 3-5 days if symptoms persist or sooner if worsening of symptoms - PREDNISONE 20 MG TABLET - BENZONATATE 100 MG CAPSULE 2. History of asthma - ICD9: V12.69, ICD10: Z87.09 -use medication as prescribed -follow up if symptoms persist, worsen, change - PREDNISONE 20 MG TABLET - BENZONATATE 100 MG CAPSULE No problem-specific Assessment & Plan notes found for this encounter. documented in this encounter [facility] 03-23-2023 Nurse Note Patient received in phase II via cart left lateral position, eyes open, alert to self and event, skin warm and dry, respirations regular and unlabored, denies pain or nausea, resting quietly, head of bed elevated 30 degrees. Resting comfortably. documented in this encounter [facility] 03-23-2023 History and physical note This is a virtual visit using FlightOffice video visit. It required patient-provider interaction for the medical decision making as documented below. I have communicated my name and active licensure. The patient's identity and physical location were verified at the time of this visit. Either the patient or their legal community service representative has been informed of the risks and benefits of -- and alternatives to -- treatment through a remote evaluation and consents to proceed with the evaluation remotely. Daniella Raygoza is a 27 year old female seen for nausea, weight loss. PMHx of anxiety, asthma, depression Patient tells me that she has been nausea for the last two years. Seems to last all day. Will vomit occasionally. Will vomit up stomach acid. Denies GERD symptoms unless she eats more acidic. Tried to change her diet around, doesn't seem to help. Having some epigastric pain intermittently. Weight is decreasing, she is trying to. Bowel movements are regular. She is a vegetarian. Every day smoker. Component Latest Ref Rng & Units 02/24/2023 WBC 3.70 - 11.00 k/uL 8.26 RBC 3.90 - 5.20 m/uL 4.22 Hemoglobin 11.5 - 15.5 g/dL 13.7 Hematocrit 36.0 - 46.0 % 40.6 MCV 80.0 - 100.0 fL 96.2 MCH 26.0 - 34.0 pg 32.5 MCHC 30.5 - 36.0 g/dL 33.7 RDW-CV 11.5 - 15.0 % 12.6 Platelet Count 150 - 400 k/uL 336 MPV 9.0 - 12.7 fL 9.5 Neut% % 53.8 Abs Neut (ANC) 1.45 - 7.50 k/uL 4.45 Lymph% % 32.0 Abs Lymph 1.00 - 4.00 k/uL 2.64 Lagrange% % 8.7 Abs Lagrange <0.87 k/uL 0.72 Eosin% % 4.1 Abs Eosin <0.46 k/uL 0.34 Baso% % 1.0 Abs Baso <0.11 k/uL 0.08 Immature Gran % % 0.4 IMMATURE GRANS (ABS) <0.10 k/uL 0.03 NRBC /100 WBC 0.0 Absolute nRBC <0.01 k/uL <0.01 DTYPE Auto Protein, Total 6.3 - 8.0 g/dL 7.0 Albumin 3.9 - 4.9 g/dL 4.0 Calcium 8.5 - 10.2 mg/dL 9.3 Bilirubin, Total 0.2 - 1.3 mg/dL 0.2 Alkaline Phosphatase 34 - 123 U/L 68 AST 13 - 35 U/L 22 ALT 7 - 38 U/L 16 Glucose 74 - 99 mg/dL 92 BUN 7 - 21 mg/dL 9 Creatinine 0.58 - 0.96 mg/dL 0.85 Sodium 136 - 144 mmol/L 136 Potassium 3.7 - 5.1 mmol/L 4.5 Chloride 97 - 105 mmol/L 103 CO2 22 - 30 mmol/L 26 Anion Gap 9 - 18 mmol/L 7 (L) eGFR >=60 mL/min/1.73m 96 Iron 41 - 186 ug/dL 65 TIBC 232 - 386 ug/dL 360 Transferrin Saturation 15.0 - 57.0 % 18.1 Ferritin 14.7 - 205.1 ng/mL 34.9 HISTORY REVIEWED (electronic chart updated): PAST MEDICAL HISTORY PAST MEDICAL HISTORY Diagnosis Date Anxiety Asthma childhood Gestational diabetes mellitus, class A1 02/26/2020 Major depression Prolactin increased PAST SURGICAL HISTORY PAST SURGICAL HISTORY Procedure Laterality Date DELIVERY ONLY 03/12/2020 C/S low transverse PAST SURGICAL HISTORY OF wisdom teeth FAMILY HISTORY FAMILY HISTORY Problem Relation Age of Onset Heart Mother valve replaced/endocarditis Alcohol abuse Father No Known Problems Sister No Known Problems Brother No Known Problems Maternal Grandmother Heart Maternal Grandfather other (Other) Paternal Grandmother Bels palsy Heart disease Paternal Grandfather Oxygen Dependent Paternal Grandfather SOCIAL HISTORY Social History Tobacco Use Smoking status: Every Day Packs/day: 0.50 Types: Cigarettes Smokeless tobacco: Never Vaping Use Vaping Use: Never used Substance Use Topics Alcohol use: Yes Comment: occasionally-mixed drinks Drug use: Never CURRENT MEDICATIONS Current Outpatient Medications Medication Sig Multivitamin capsule Take 1 capsule by mouth once daily. ondansetron orally disintegrating (ZOFRAN ODT) 4 mg disintegrating tablet Take 1 tablet by mouth every 6 hours as needed for nausea/vomiting. Desogestrel-Ethinyl Estradiol (APRI) 0.15-0.03 mg per tablet Take 1 tablet by mouth once daily. No current facility-administered medications for this visit. ALLERGIES ALLERGIES Allergen Reactions Celexa [Citalopram * Other: See Comments Nightmares Coconut Rash Lexapro [Escitalopr* Other: See Comments Nightmares Mucinex [Guaifenesi* Hives Zoloft [Sertraline * Other: See Comments Dizziness, intolerance REVIEW OF SYSTEMS: Review of Systems Constitutional: Positive for weight loss. Gastrointestinal: Positive for abdominal pain, nausea and vomiting. Negative for blood in stool, constipation, diarrhea and heartburn. PHYSICAL EXAMINATION: VIDEO EXAM: (if completed, performed via video enabled technology) Physical Exam Constitutional: Appearance: Normal appearance. HENT: Head: Normocephalic and atraumatic. Eyes: General: No scleral icterus. Pulmonary: Effort: Pulmonary effort is normal. Skin: Coloration: Skin is not jaundiced. Neurological: General: No focal deficit present. Mental Status: She is alert and oriented to person, place, and time. Psychiatric: Mood and Affect: Mood normal. Behavior: Behavior normal. Thought Content: Thought content normal. Judgment: Judgment normal. Assessment/Plan (R11.0) Chronic nausea (primary encounter diagnosis) (R10.13) Epigastric pain 1. Chronic nausea -- Patient with chronic nausea for the last two years. Seems to be worsening. Has associated epigastric pain and vomiting. -- Okay to increase Zofran to 8 mg PRN -- EGD for further evaluation r/o gastritis, PUD, H.pylori - EGD DIAGNOSTIC; Future 2. Epigastric pain -- Patient with chronic nausea for the last two years. Seems to be worsening. Has associated epigastric pain and vomiting. -- Okay to increase Zofran to 8 mg PRN -- EGD for further evaluation r/o gastritis, PUD, H.pylori - EGD DIAGNOSTIC; Future Follow up in office PRN. Recommended to please call office/go to ER if fever, chills, chest pain, SOB, diarrhea, nausea, emesis, worsening abdominal pain, dehydration occurs I spent a total of 20 minutes on the date of the service which included preparing to see the patient, [id number] patient care, completing clinical documentation, obtaining and/or reviewing separately obtained history, performing a medically appropriate examination, counseling and educating the patient/family/caregiver, and ordering medications, tests, or procedures. Marilee Solis PA-C March 02, 2023 10:28 AM UPDATED HISTORY AND PHYSICAL EXAMINATION SERVICE DATE: 03/23/2023 SERVICE TIME: 1:00 PM PHYSICAL EXAM MUST BE COMPLETED ON ADMISSION The History and Physical (completed in the past 30 days) has been reviewed and the patient has been examined. The contents accurately reflect the patient's condition with the following additions or revisions since the H&P was completed. Examination indicates no changes. This H&P can be found in the attached. SIGNATURE: Jean Figueroa III, MD PATIENT NAME: Daniella Raygoza DATE: March 23, 2023 TIME: 1:00 PM documented in this encounter [facility] 03-02-2023 Note HNO ID: [id number] Author: Marilee Solis PA-C Service: ? Author Type: Physician Customs And Border Protection Inspector Type: Progress Notes Filed: 03/02/2023 10:30 AM Note Text: This is a virtual visit using FlightOffice video visit. It required patient-provider interaction for the medical decision making as documented below. I have communicated my name and active licensure. The patient's identity and physical location were verified at the time of this visit. Either the patient or their legal community service representative has been informed of the risks and benefits of -- and alternatives to -- treatment through a remote evaluation and consents to proceed with the evaluation remotely. Daniella Raygoza is a 27 year old female seen for nausea, weight loss. PMHx of anxiety, asthma, depression Patient tells me that she has been nausea for the last two years. Seems to last all day. Will vomit occasionally. Will vomit up stomach acid. Denies GERD symptoms unless she eats more acidic. Tried to change her diet around, doesn't seem to help. Having some epigastric pain intermittently. Weight is decreasing, she is trying to. Bowel movements are regular. She is a vegetarian. Every day smoker. Component Latest Ref Rng AND Units 02/24/2023 WBC 3.70 - 11.00 k/uL 8.26 RBC 3.90 - 5.20 m/uL 4.22 Hemoglobin 11.5 - 15.5 g/dL 13.7 Hematocrit 36.0 - 46.0 % 40.6 MCV 80.0 - 100.0 fL 96.2 MCH 26.0 - 34.0 pg 32.5 MCHC 30.5 - 36.0 g/dL 33.7 RDW-CV 11.5 - 15.0 % 12.6 Platelet Count 150 - 400 k/uL 336 MPV 9.0 - 12.7 fL 9.5 Neut% % 53.8 Abs Neut (ANC) 1.45 - 7.50 k/uL 4.45 Lymph% % 32.0 Abs Lymph 1.00 - 4.00 k/uL 2.64 Lagrange% % 8.7 Abs Lagrange <0.87 k/uL 0.72 Eosin% % 4.1 Abs Eosin <0.46 k/uL 0.34 Baso% % 1.0 Abs Baso <0.11 k/uL 0.08 Immature Gran % % 0.4 IMMATURE GRANS (ABS) <0.10 k/uL 0.03 NRBC /100 WBC 0.0 Absolute nRBC <0.01 k/uL <0.01 DTYPE Auto Protein, Total 6.3 - 8.0 g/dL 7.0 Albumin 3.9 - 4.9 g/dL 4.0 Calcium 8.5 - 10.2 mg/dL 9.3 Bilirubin, Total 0.2 - 1.3 mg/dL 0.2 Alkaline Phosphatase 34 - 123 U/L 68 AST 13 - 35 U/L 22 ALT 7 - 38 U/L 16 Glucose 74 - 99 mg/dL 92 BUN 7 - 21 mg/dL 9 Creatinine 0.58 - 0.96 mg/dL 0.85 Sodium 136 - 144 mmol/L 136 Potassium 3.7 - 5.1 mmol/L 4.5 Chloride 97 - 105 mmol/L 103 CO2 22 - 30 mmol/L 26 Anion Gap 9 - 18 mmol/L 7 (L) eGFR >=60 mL/min/1.73mA? 96 Iron 41 - 186 ug/dL 65 TIBC 232 - 386 ug/dL 360 Transferrin Saturation 15.0 - 57.0 % 18.1 Ferritin 14.7 - 205.1 ng/mL 34.9 HISTORY REVIEWED (electronic chart updated): PAST MEDICAL HISTORY Diagnosis Date Anxiety Asthma childhood Gestational diabetes mellitus, class A1 02/26/2020 Major depression Prolactin increased PAST SURGICAL HISTORY Procedure Laterality Date DELIVERY ONLY 03/12/2020 C/S low transverse PAST SURGICAL HISTORY OF wisdom teeth FAMILY HISTORY Problem Relation Age of Onset Heart Mother valve replaced/endocarditis Alcohol abuse Father No Known Problems Sister No Known Problems Brother No Known Problems Maternal Grandmother Heart Maternal Grandfather other (Other) Paternal Grandmother Bels palsy Heart disease Paternal Grandfather Oxygen Dependent Paternal Grandfather Social History Tobacco Use Smoking status: Every Day Packs/day: 0.50 Types: Cigarettes Smokeless tobacco: Never Vaping Use Vaping Use: Never used Substance Use Topics Alcohol use: Yes Comment: occasionally-mixed drinks Drug use: Never Current Outpatient Medications Medication Sig Multivitamin capsule Take 1 capsule by mouth once daily. ondansetron orally disintegrating (ZOFRAN ODT) 4 mg disintegrating tablet Take 1 tablet by mouth every 6 hours as needed for nausea/vomiting. Desogestrel-Ethinyl Estradiol (APRI) 0.15-0.03 mg per tablet Take 1 tablet by mouth once daily. No current facility-administered medications for this visit. ALLERGIES Allergen Reactions Celexa [Citalopram * Other: See Comments Nightmares Coconut Rash Lexapro [Escitalopr* Other: See Comments Nightmares Mucinex [Guaifenesi* Hives Zoloft [Sertraline * Other: See Comments Dizziness, intolerance REVIEW OF SYSTEMS: Review of Systems Constitutional: Positive for weight loss. Gastrointestinal: Positive for abdominal pain, nausea and vomiting. Negative for blood in stool, constipation, diarrhea and heartburn. PHYSICAL EXAMINATION: VIDEO EXAM: (if completed, performed via video enabled technology) Physical Exam Constitutional: Appearance: Normal appearance. HENT: Head: Normocephalic and atraumatic. Eyes: General: No scleral icterus. Pulmonary: Effort: Pulmonary effort is normal. Skin: Coloration: Skin is not jaundiced. Neurological: General: No focal deficit present. Mental Status: She is alert and oriented to person, place, and time. Psychiatric: Mood and Affect: Mood normal. Behavior: Behavior normal. Thought Content: Thought content normal. Judgment: Judgment (more content not included)... [facility] 03-02-2023 History of Presen t illness Narrative This is a virtual visit using [employer] video visit. It required patient-provider interaction for the medical decision making as documented below. I have communicated my name and active licensure. The patient's identity and physical location were verified at the time of this visit. Either the patient or their legal community service representative has been informed of the risks and benefits of -- and alternatives to -- treatment through a remote evaluation and consents to proceed with the evaluation remotely. Daniella Raygoza is a 27 year old female seen for nausea, weight loss. PMHx of anxiety, asthma, depression Patient tells me that she has been nausea for the last two years. Seems to last all day. Will vomit occasionally. Will vomit up stomach acid. Denies GERD symptoms unless she eats more acidic. Tried to change her diet around, doesn't seem to help. Having some epigastric pain intermittently. Weight is decreasing, she is trying to. Bowel movements are regular. She is a vegetarian. Every day smoker. Component Latest Ref Rng & Units 02/24/2023 WBC 3.70 - 11.00 k/uL 8.26 RBC 3.90 - 5.20 m/uL 4.22 Hemoglobin 11.5 - 15.5 g/dL 13.7 Hematocrit 36.0 - 46.0 % 40.6 MCV 80.0 - 100.0 fL 96.2 MCH 26.0 - 34.0 pg 32.5 MCHC 30.5 - 36.0 g/dL 33.7 RDW-CV 11.5 - 15.0 % 12.6 Platelet Count 150 - 400 k/uL 336 MPV 9.0 - 12.7 fL 9.5 Neut% % 53.8 Abs Neut (ANC) 1.45 - 7.50 k/uL 4.45 Lymph% % 32.0 Abs Lymph 1.00 - 4.00 k/uL 2.64 Lagrange% % 8.7 Abs Lagrange <0.87 k/uL 0.72 Eosin% % 4.1 Abs Eosin <0.46 k/uL 0.34 Baso% % 1.0 Abs Baso <0.11 k/uL 0.08 Immature Gran % % 0.4 IMMATURE GRANS (ABS) <0.10 k/uL 0.03 NRBC /100 WBC 0.0 Absolute nRBC <0.01 k/uL <0.01 DTYPE Auto Protein, Total 6.3 - 8.0 g/dL 7.0 Albumin 3.9 - 4.9 g/dL 4.0 Calcium 8.5 - 10.2 mg/dL 9.3 Bilirubin, Total 0.2 - 1.3 mg/dL 0.2 Alkaline Phosphatase 34 - 123 U/L 68 AST 13 - 35 U/L 22 ALT 7 - 38 U/L 16 Glucose 74 - 99 mg/dL 92 BUN 7 - 21 mg/dL 9 Creatinine 0.58 - 0.96 mg/dL 0.85 Sodium 136 - 144 mmol/L 136 Potassium 3.7 - 5.1 mmol/L 4.5 Chloride 97 - 105 mmol/L 103 CO2 22 - 30 mmol/L 26 Anion Gap 9 - 18 mmol/L 7 (L) eGFR >=60 mL/min/1.73m 96 Iron 41 - 186 ug/dL 65 TIBC 232 - 386 ug/dL 360 Transferrin Saturation 15.0 - 57.0 % 18.1 Ferritin 14.7 - 205.1 ng/mL 34.9 HISTORY REVIEWED (electronic chart updated): PAST MEDICAL HISTORY Diagnosis Date Anxiety Asthma childhood Gestational diabetes mellitus, class A1 02/26/2020 Major depression Prolactin increased PAST SURGICAL HISTORY Procedure Laterality Date DELIVERY ONLY 03/12/2020 C/S low transverse PAST SURGICAL HISTORY OF wisdom teeth FAMILY HISTORY Problem Relation Age of Onset Heart Mother valve replaced/endocarditis Alcohol abuse Father No Known Problems Sister No Known Problems Brother No Known Problems Maternal Grandmother Heart Maternal Grandfather other (Other) Paternal Grandmother Bels palsy Heart disease Paternal Grandfather Oxygen Dependent Paternal Grandfather Social History Tobacco Use Smoking status: Every Day Packs/day: 0.50 Types: Cigarettes Smokeless tobacco: Never Vaping Use Vaping Use: Never used Substance Use Topics Alcohol use: Yes Comment: occasionally-mixed drinks Drug use: Never Current Outpatient Medications Medication Sig Multivitamin capsule Take 1 capsule by mouth once daily. ondansetron orally disintegrating (ZOFRAN ODT) 4 mg disintegrating tablet Take 1 tablet by mouth every 6 hours as needed for nausea/vomiting. Desogestrel-Ethinyl Estradiol (APRI) 0.15-0.03 mg per tablet Take 1 tablet by mouth once daily. No current facility-administered medications for this visit. ALLERGIES Allergen Reactions Celexa [Citalopram * Other: See Comments Nightmares Coconut Rash Lexapro [Escitalopr* Other: See Comments Nightmares Mucinex [Guaifenesi* Hives Zoloft [Sertraline * Other: See Comments Dizziness, intolerance REVIEW OF SYSTEMS: Review of Systems Constitutional: Positive for weight loss. Gastrointestinal: Positive for abdominal pain, nausea and vomiting. Negative for blood in stool, constipation, diarrhea and heartburn. PHYSICAL EXAMINATION: VIDEO EXAM: (if completed, performed via video enabled technology) Physical Exam Constitutional: Appearance: Normal appearance. HENT: Head: Normocephalic and atraumatic. Eyes: General: No scleral icterus. Pulmonary: Effort: Pulmonary effort is normal. Skin: Coloration: Skin is not jaundiced. Neurological: General: No focal deficit present. Mental Status: She is alert and oriented to person, place, and time. Psychiatric: Mood and Affect: Mood normal. Behavior: Behavior normal. Thought Content: Thought content normal. Judgment: Judgment normal. Assessment/Plan (R11.0) Chronic nausea (primary encounter diagnosis) (R10.13) Epigastric pain 1. Chronic nausea -- Patient with chronic nausea for the last two years. Seems to be worsening. Has associated epigastric pain and vomiting. -- Okay to increase Zofran to 8 mg PRN -- EGD for further evaluation r/o gastritis, PUD, H.pylori - EGD DIAGNOSTIC; Future 2. Epigastric pain -- Patient with chronic nausea for the last two years. Seems to be worsening. Has associated epigastric pain and vomiting. -- Okay to increase Zofran to 8 mg PRN -- EGD for further evaluation r/o gastritis, PUD, H.pylori - EGD DIAGNOSTIC; Future Follow up in office PRN. Recommended to please call office/go to ER if fever, chills, chest pain, SOB, diarrhea, nausea, emesis, worsening abdominal pain, dehydration occurs I spent a total of 20 minutes on the date of the service which included preparing to see the patient, [id number] patient care, completing clinical documentation, obtaining and/or reviewing separately obtained history, performing a medically appropriate examination, counseling and educating the patient/family/caregiver, and ordering medications, tests, or procedures. Marilee Solis PA-C March 02, 2023 10:28 AM documented in this encounter [facility] 02-27-2023 Miscellaneous Notes Patient notified and voices understanding. hSeila Ortiz LPN No the nausea is not associated with her nausea. Emelyn Azevedo APRN.CNP Patient calling regarding recent blood work results. Notes low anion gap result of 7.0. Pt asking Emelyn Azevedo CNP if her nausea issues have anything to do with a lower anion gap result? Patient has upcoming telehealth visit with GI this also. Please advise patient. Thank you. Sparktrend message sent to pt notifying of results below. Silvia Mullen Ma ----- Message from Emelyn Azevedo APRN.CNP sent at 02/27/2023 7:20 AM EDT ----- Blood work is normal. Emelyn Azevedo APRN.CNP documented in this encounter [facility] 02-24-2023 Note HNO ID: [id number] Author: Emelyn Azevedo APRN.CNP Service: ? Author Type: Nurse Practitioner Type: Progress Notes Filed: 02/24/2023 12:41 PM Note Text: 02/24/2023 Patient presents with: Physical: Complaints of daily nausea that has persisted almost x2 years SUBJECTIVE: This is a 27 year old that is here today for Above Complaints. Reports nausea daily off and on. Has appointment upcoming with GI. Uses zofran occasionally. Needs Refill. Denies unintentional weight loss, GERD, abdominal pain, vomiting, diarrhea, constipation, melana or hematochezia Eats vegetarian diet. No exercise regime PAST MEDICAL HISTORY Diagnosis Date Anxiety Asthma childhood Gestational diabetes mellitus, class A1 02/26/2020 Major depression Prolactin increased ALLERGIES Celexa [Citalopram Hydrobromide], Coconut, Lexapro [Escitalopram], Mucinex [Guaifenesin], and Zoloft [Sertraline Hcl] MEDICATIONS Current Outpatient Medications Medication Sig Multivitamin capsule Take 1 capsule by mouth once daily. meloxicam (MOBIC) 15 mg tablet Take by mouth. (Patient not taking: Reported on 02/24/2023) Desogestrel-Ethinyl Estradiol (APRI) 0.15-0.03 mg per tablet Take 1 tablet by mouth once daily. ondansetron orally disintegrating (ZOFRAN ODT) 4 mg disintegrating tablet Take 1 tablet by mouth every 6 hours as needed for nausea/vomiting. No current facility-administered medications for this visit. Medications and allergies reviewed by this provider. SOCIAL HISTORY Social History Tobacco Use Smoking status: Every Day Packs/day: 0.50 Types: Cigarettes Smokeless tobacco: Never Vaping Use Vaping Use: Never used Substance Use Topics Alcohol use: Yes Comment: occasionally-mixed drinks Drug use: Never REVIEW OF SYSTEMS GENERAL: No weight loss, malaise or fevers HEENT: Negative for frequent or significant headaches, No changes in hearing or vision, no nose bleeds or other nasal problems NECK: Negative for lumps, goiter, pain and significant neck swelling RESPIRATORY: Negative for cough, hemoptysis, wheezing, COPD, dyspnea or shortness of breath, CARDIOVASCULAR: Negative for chest pain, leg swelling, hypertension, CHF or palpitations GI: See HPI : No history of dysuria, frequency or incontinence BUFFING MACHINE 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 OBJECTIVE: BP 102/70 Pulse 77 Resp 18 Wt 110 kg (242 lb 9.6 oz) LMP 01/21/2023 SpO2 97% BMI 40.37 kg/m? . Vital signs reviewed by this provider. APPEARANCE Well appearing, alert, in no acute distress, well-hydrated, well nourished. EYES conjunctiva and sclera normal. EARS External ears normal, canals clear NECK Supple, no adenopathy; thyroid symmetric, normal size, no bruits HEART RRR with normal S1 and S2, no murmurs, no gallops, no JVD appreciated LUNG clear to auscultation. No wheezes, rhonchi or rales EXTREMITIES Extremities normal, No deformities, No skin discoloration, and No edema SKIN Skin color, texture, turgor normal, no suspicious rashes or lesions PNEUMOCOCCAL(1 - PCV) Never done PAP TESTING due on 04/23/2023 COVID-19 VACCINE(1) due on 02/25/2024 INFLUENZA(Season Ended) due on 07/14/2023 DTAP,TDAP,TD(9 - Td or Tdap) due on 01/14/2030 HEPATITIS B Completed HEPATITIS C SCREENING Completed HIV SCREENING Completed ASSESSMENT/PLAN: 1. Routine physical examination - ICD9: V70.0, ICD10: Z00.00 (primary diagnosis) - Counseled on healthy diet and regular exercise - Calcium intake with supplements or by diet of 1000 mg/day for under 50, 7395-2043 mg/day for 50+ - Discussed need and benefit for weight loss. BMI 40.37 kg/(m2) - Follow up for annual exam in one year 2. Vegetarian diet - ICD9: V49.89, ICD10: Z78.9 - continue with daily multivitamin - CBC + DIFF - COMP METABOLIC PANEL - IRON + TIBC - FERRITIN BLD 3. Obesity, Class III, BMI >= 40 - ICD9: 278.01, ICD10: E66.01 Weight decreasing - Behavioral intervention - Lengthy discussion in office today regarding diet and exercise. Discussed use of small plate to eat meals from, drink 1 glass of water 10-15 minutes prior to eating meal, drink 8 glasses of water daily, eat fresh fruit and vegetable during meal first then lean protein such as grilled/baked chicken breast or fish, limit carbohydrate intake (less pasta, breads, rice and snack foods) as well as limiting sugars (desserts etc). Important to count / tr (more content not included)... [facility] 02-21-2023 Note HNO ID: [id number] Author: Kasandra Morris APRN.JIGNA Service: ? Author Type: Nurse Practitioner Type: Progress Notes Filed: 02/21/2023 2:05 PM Note Text: Patient identified by name and date of . Daniella Raygoza is here for her HPV Gardasil vaccination, injection # three of the series. Patient ?No Gardasil injection was given without incident. See immunizations for details of immunizations administered today. VIS sheet provided: Yes Patient advised to follow up in Series completed Provider Kasandra Morris CNP was present in office at time of injection. Sherin Fagan MA Binder Cutter Hand offered: Patient declines. Daniella is a 27 year old who presents for an annual gynecologic exam without complaints. Menses: every 28-30 days lasting 5 days Contraception: condoms HPV vaccine: Has had 2 in series Last Pap: 04/27/2020 normal HPV: na History of abnormal pap: No Last mammogram: never Sexually active: Yes History of STDS: None Patient concerns for STD exposure: New partner Time with current partner: 2 months Pain with intercourse: No Postcoital bleeding: No OB History T1 L1 SAB0 IAB0 Ectopic0 Multiple0 Live Births1 Drug Safety Specialist History LMP: 01/21/2023, Having periods Age at Menarche: Age at First : Age at Menopause: Drug Safety Specialist History Comments: Sexual Activity: Yes; Male; most of the time Contraception: No contraception data on record PAST MEDICAL HISTORY Diagnosis Date Anxiety Asthma childhood Gestational diabetes mellitus, class A1 02/26/2020 Major depression Prolactin increased PAST SURGICAL HISTORY Procedure Laterality Date DELIVERY ONLY 03/12/2020 C/S low transverse PAST SURGICAL HISTORY OF wisdom teeth FAMILY HISTORY Problem Relation Age of Onset Heart Mother valve replaced/endocarditis Alcohol abuse Father No Known Problems Sister No Known Problems Brother No Known Problems Maternal Grandmother Heart Maternal Grandfather other (Other) Paternal Grandmother Bels palsy Heart disease Paternal Grandfather Oxygen Dependent Paternal Grandfather SOCIAL HISTORY Social History Tobacco Use Smoking status: Every Day Packs/day: 0.50 Types: Cigarettes Smokeless tobacco: Never Vaping Use Vaping Use: Never used Substance Use Topics Alcohol use: Yes Comment: occasionally-mixed drinks Drug use: Never REVIEW OF SYSTEMS Abdomen: No abdominal pain, vomiting, diarrhea, or constipation. No bloating, early satiety, indigestion, or increased flatulence. Has had intermittent nausea x many months. Bladder: No dysuria, gross hematuria, urinary frequency, urinary urgency, or incontinence. Breast: No breast lumps, nipple d/c, overlying skin changes, redness or skin retraction. Denies family history of clotting disorders. Denies personal history of DVT, CVD, hypertension or migraine with aura. Current 1/2 ppd smoker. Allergies and current medication updated:Yes EXAM: BP 110/70 Ht 5' 5 (1.65m) Wt 245 lb 6.4 oz (111.3kg) LMP 01/21/2023 BMI 40.84 kg/(m2). Has lost approximately 50 lbs in past 1.5 years - has bot tried but has been eating less pasta, smaller meals and exercising. Knows that intermittent nausea for at least 1.5 years which has contributed to weight loss. GENERAL: pleasant, female in no apparent distress HEENT: Normocephalic, atraumatic, mucus membranes moist, and no lesions NECK: Supple, full range of motion, no adenopathy, and thyroid normal DERMATOLOGY: Normal, without lesions, non-icteric, and non-hirsute BREAST: soft, non-tender, symmetric, no dominant mass, normal nipple-areolar complex, no lymphadenopathy, and no nipple discharge CHEST: Normal inspiratory effort. Moist cough. ABDOMEN: soft, non-tender, and no masses PELVIC: external genitalia normal, normal Bartholin's glands, urethra, [place]'s glands, no vulvar lesions, no cervical lesions, good vaginal support, physiologic discharge present, normal appearing perineal body and perianal region BIMANUAL: uterus normal size, shape and consistency, no adnexal masses, and non-tender RECTOVAGINAL: deferred. NEURO: alert and oriented x3,exam grossly non-focal EXTREMITIES: normal ASSESSMENT/PLAN: 1) Health maintenance: Pap done with reflex HPV. Nutrition, exercise and routine health maintenance exams reviewed. Smoking cessation: Benefits of smoking cessation reviewed. Patient encouraged to avoid smoking. HPV vaccine: will get 3rd in series today 2. Chronic nausea - ICD9: 787.02, ICD10: R11.0 - for past 1.5 years - CONSULT TO GASTROENTEROLOGY and to make PCP appointment. 3. Unintentional weight loss - ICD9: 783.21, ICD10: R63.4 50 pounds - intermittent long-term nausea - CONSULT TO GASTROENTEROLOGY 4. Encounter for counseling regarding contraception - ICD9: V25.09, ICD10: Z30.09 - discussed contraceptive options with RBA including OCP, NuvaRing, Depo Provera, Nexplanon and IUDs. Pt prefers OC (more content not included)... [facility] 02-21-2023 Instructions Kasandra Morris APRN.JIGNA - 02/21/2023 1:30 PM EDT Here are some things that you can try for the nausea. Take the pill at bedtime so that if you are nauseated, hopefully it will occur overnight while you are sleeping Use a Seaband. You can buy this online or at a drug store. People wear it when they cruise for nausea. Take B6 25 mg every 6-8 hours. This should help within a week. Oral Contraceptives: The Pill Beginning the Pill Pills come in either a 21 day pack or a 28 day pack. With the 21 day pack you will take one pill for 21 days then no pill for 7 days, during which time you will have what is known as withdrawal bleeding. The 28 day pack allows you to take a pill every day of the cycle with no interruptions. The first 21 pills are the pills with the active ingredients and the last 7 are the nonmedical pills (placebo) or they may contain iron. There will be bleeding during the week you are taking the nonmedical pills. The advantage to the 28 day pack is that you don t have to keep track of when you stopped the pill. There are a group of 28 day pills that contain 24 active pills and only 4 placebo pills. These are formulated to give you a dining room host/hostess period. Unless otherwise instructed, you should start your pills the Monday following your first day of bleeding with your next period (if your period starts on a Monday, you should start pills the same day) Read your information packet that comes with the pills. Pill Benefits The pill is the most popular method of reversible control being used today. Millions of women rely on oral contraceptives as their control method. It is important to have an examination by your physician to determine if the pill is safe for you. There are several advantages associated with the pill: it is 97-98% effective when used correctly; may improve acne; periods are more regular and less painful; there is less iron deficiency anemia in pill users. termite exterminator use is associated with a decreased incidence of ovarian and uterine cancer. There is also no evidence that the pill increases the incidence of any cancer. How Oral Contraceptives Work Oral contraceptives come in two varieties. One is the combination pill which contains both estrogen and progesterone. Combination pills are considered 98-99% effective in preventing . This pill comes in either monophasic, which delivers the same amount of estrogen and progesterone throughout the cycle; and triphasic, which try tries to mimic the normal hormone cycle by changing the levels of the hormones in the pills during the month. There is no real advantage to taking the one over the other. The other type of pill only contains progesterone. It is best used for women who can t take estrogen. This type of pill is slightly less effective than the combination pill in preventing . It is VERY important to take the progesterone only pill at the same time every day. Oral contraceptives prevent ovulation (release of an egg from the ovary) by suppressing the pituitary gland s action. The pill does NOT prevent sexually transmitted disease. Obtaining a Prescription It is important to see your doctor before starting oral contraceptives so that you can have a full medical history taken and a physical examination given. Certain medical conditions may make the pill inappropriate for you, therefore it is very important to be honest and as complete as possible with the information you share with your doctor. The types of predisposing factors which would make the pill a poor choice of control would include: History of blood clots Stroke Serious liver disease or impaired liver function Unexplained vaginal bleeding or Cancer of the reproductive system Active gall bladder disease Hypertension Possible Side Effects It can take up to three months for your body to become adjusted to the pill. The more common side effects experienced at this time are: breakthrough spotting or bleeding, which is bleeding at any other time other than when you should be having a period; nausea or vomiting; breast tenderness; and mild fluid retention. There is no keno terminal operator weight gain with the use of the pill. Breakthrough bleeding is the most common complaint of new pill users. There is no way to predict who will have it and there is no way of preventing it. Breakthrough bleeding usually subsides on its own with no further treatment after the first three months of taking the pill. If these symptoms continue to occur after the first three months you should check with your physician to see if there is any physical cause and possibly change to another control pill. Problems: Missed 1 pill: Take 2 pills the next day. Missed 2 pills: Take 2 pills the next day and 2 pills the following day. Also use another form of control (condoms) along with the pill for the rest of the month. Missed 3 or more pills: You have two choices. You can take two pills each day until you are on schedule, plus use an additional form of control along with the pill for the rest of the month. Or you can stop the pill and start a completely new pack of pills the next Monday. You must use another form of control with the pill for at least the first two weeks of the new pack. You re ill and you have been vomiting or have diarrhea: You must use another form of control with the pill since the pill may not be fully absorbed during your illness. Continue to use the added control until the end of the cycle. Desire to become : Stop using the pill for one month before trying to become . Taking other medications: The control pill is less effective when you take the antibiotic Rifampin, epilepsy (seizure) drugs such as phenytoin, carbamazepine, phenobarbital, topiramate and some medications for HIV. Let your doctor know if you start taking any of these medications while on the pill. Symptoms to Notify Your Doctor with Immediately: Pain in your chest or legs Continuous blurred vision Severe headaches Slurred speech Tingling or weakness on one side of your body Shortness of breath Swelling of one leg Refills of Control Pills You need to see a doctor every year for a refill of your prescription. This is necessary in order that your health can be monitored closely while you are taking control pills. If your prescription should before your next scheduled appointment you can usually get a one month extension from your doctors office if you call during regular business hours about one week before you need to start the new package of pills. This allows the physician to refer to your chart for necessary health information. documented in this encounter [facility] 02-21-2023 History of Presen t illness Narrative Patient identified by name and date of . Daniella Raygoza is here for her HPV Gardasil vaccination, injection # three of the series. Patient ?No Gardasil injection was given without incident. See immunizations for details of immunizations administered today. VIS sheet provided: Yes Patient advised to follow up in Series completed Provider Kasandra Morris CNP was present in office at time of injection. Sherin Fagan MA Binder Cutter Hand offered: Patient declines. Daniella is a 27 year old who presents for an annual gynecologic exam without complaints. Menses: every 28-30 days lasting 5 days Contraception: condoms HPV vaccine: Has had 2 in series Last Pap: 04/27/2020 normal HPV: na History of abnormal pap: No Last mammogram: never Sexually active: Yes History of STDS: None Patient concerns for STD exposure: New partner Time with current partner: 2 months Pain with intercourse: No Postcoital bleeding: No OB History T1 L1 SAB0 IAB0 Ectopic0 Multiple0 Live Births1 Drug Safety Specialist History LMP: 01/21/2023, Having periods Age at Menarche: Age at First : Age at Menopause: Drug Safety Specialist History Comments: Sexual Activity: Yes; Male; most of the time Contraception: No contraception data on record PAST MEDICAL HISTORY Diagnosis Date Anxiety Asthma childhood Gestational diabetes mellitus, class A1 02/26/2020 Major depression Prolactin increased PAST SURGICAL HISTORY Procedure Laterality Date DELIVERY ONLY 03/12/2020 C/S low transverse PAST SURGICAL HISTORY OF wisdom teeth FAMILY HISTORY Problem Relation Age of Onset Heart Mother valve replaced/endocarditis Alcohol abuse Father No Known Problems Sister No Known Problems Brother No Known Problems Maternal Grandmother Heart Maternal Grandfather other (Other) Paternal Grandmother Bels palsy Heart disease Paternal Grandfather Oxygen Dependent Paternal Grandfather SOCIAL HISTORY Social History Tobacco Use Smoking status: Every Day Packs/day: 0.50 Types: Cigarettes Smokeless tobacco: Never Vaping Use Vaping Use: Never used Substance Use Topics Alcohol use: Yes Comment: occasionally-mixed drinks Drug use: Never REVIEW OF SYSTEMS Abdomen: No abdominal pain, vomiting, diarrhea, or constipation. No bloating, early satiety, indigestion, or increased flatulence. Has had intermittent nausea x many months. Bladder: No dysuria, gross hematuria, urinary frequency, urinary urgency, or incontinence. Breast: No breast lumps, nipple d/c, overlying skin changes, redness or skin retraction. Denies family history of clotting disorders. Denies personal history of DVT, CVD, hypertension or migraine with aura. Current 1/2 ppd smoker. Allergies and current medication updated:Yes EXAM: BP 110/70 Ht 5' 5 (1.65m) Wt 245 lb 6.4 oz (111.3kg) LMP 01/21/2023 BMI 40.84 kg/(m^2). Has lost approximately 50 lbs in past 1.5 years - has bot tried but has been eating less pasta, smaller meals and exercising. Knows that intermittent nausea for at least 1.5 years which has contributed to weight loss. GENERAL: pleasant, female in no apparent distress HEENT: Normocephalic, atraumatic, mucus membranes moist, and no lesions NECK: Supple, full range of motion, no adenopathy, and thyroid normal DERMATOLOGY: Normal, without lesions, non-icteric, and non-hirsute BREAST: soft, non-tender, symmetric, no dominant mass, normal nipple-areolar complex, no lymphadenopathy, and no nipple discharge CHEST: Normal inspiratory effort. Moist cough. ABDOMEN: soft, non-tender, and no masses PELVIC: external genitalia normal, normal Bartholin's glands, urethra, [place]'s glands, no vulvar lesions, no cervical lesions, good vaginal support, physiologic discharge present, normal appearing perineal body and perianal region BIMANUAL: uterus normal size, shape and consistency, no adnexal masses, and non-tender RECTOVAGINAL: deferred. NEURO: alert and oriented x3,exam grossly non-focal EXTREMITIES: normal ASSESSMENT/PLAN: 1) Health maintenance: Pap done with reflex HPV. Nutrition, exercise and routine health maintenance exams reviewed. Smoking cessation: Benefits of smoking cessation reviewed. Patient encouraged to avoid smoking. HPV vaccine: will get 3rd in series today 2. Chronic nausea - ICD9: 787.02, ICD10: R11.0 - for past 1.5 years - CONSULT TO GASTROENTEROLOGY and to make PCP appointment. 3. Unintentional weight loss - ICD9: 783.21, ICD10: R63.4 50 pounds - intermittent long-term nausea - CONSULT TO GASTROENTEROLOGY 4. Encounter for counseling regarding contraception - ICD9: V25.09, ICD10: Z30.09 - discussed contraceptive options with RBA including OCP, NuvaRing, Depo Provera, Nexplanon and IUDs. Pt prefers OCP. - DESOGESTREL 0.15 MG-ETHINYL ESTRADIOL 0.03 MG TABLET 5. Encounter for BCP ( control pills) initial prescription - ICD9: V25.01, ICD10: Z30.011 - RX for Apri given today. - discussed with patient on how to take OCP's. Given written information - counseled on benefits, risks and possible severe side effects of OCP's. - discussed need to use Condoms to help to prevent STD's including HIV etc. - DESOGESTREL 0.15 MG-ETHINYL ESTRADIOL 0.03 MG TABLET 6. Screen for STD (sexually transmitted disease) - ICD9: V74.5, ICD10: Z11.3 - HCG QUAL UR B/O - neg - SYPHILIS TOTAL W/REFLEX - HEP B SURF AG SCRN - HCV QUANT RNA BY PCR - HIV 1 2 COMBO(AG/AB),WITH REFLEX TO DIFFERENTIATION - GC/CHLAMYDIA DNA DE 7. Class 3 severe obesity with body mass index (BMI) of 40.0 to 44.9 in adult, unspecified obesity type, unspecified whether serious comorbidity present (HCC) - ICD9: 278.01, V85.41, ICD10: E66.01, Z68.41 -Has lost over 50 pounds in the last year and a half. She has long-term intermittent nausea and knows that that has contributed -She would like to be evaluated for medical weight loss. Given questionnaire to complete but would like her to see gastroenterology and her PCP for further testing for chronic nausea and weight loss prior to proceeding. 8) Follow up one year or sooner as 7eeded Kasandra Morris APRN.CNP documented in this encounter [facility] 04-26-2022 History of Presen t illness Narrative FOLLOW UP PODIATRIC OFFICE VISIT Chief Complaint: This 26 year old who presents for follow up: Ingrowing toenail of b/l hallux medial nail border. Patient had matrixectomy and she feels that she is doing very well. She did hit the nail last week and the toe began to bleed but overall, she is doing very well. Patient denies any severe pain. She continues with soaking. She denies n/v/f/c PAIN EVALUATION 04/26/2022 1139 Pain Level: 2 Pain Location: Toe Description: Sore Duration Amount of Time: 3 Duration Units: Weeks Frequency: Intermittent Intervention/Comfort measure: Reposition;Relaxation Hemoglobin A1C Date Value Ref Range Status 08/06/2021 6.2 (H) 4.3 - 5.6 % Final Comment: [place] [employer] guidelines indicate that patients with HgbA1c in the range 5.7-6.4% are at increased risk for development of diabetes, and intervention by lifestyle modification may be beneficial. HgbA1c greater or equal to 6.5% is considered diagnostic of diabetes. PCP: No primary care provider on file. PAST MEDICAL HISTORY Diagnosis Date Anxiety Asthma childhood Gestational diabetes mellitus, class A1 02/26/2020 Major depression Prolactin increased Current Outpatient Medications Medication Sig ondansetron orally disintegrating (ZOFRAN ODT) 4 mg disintegrating tablet Take 1 tablet by mouth every 6 hours as needed for nausea/vomiting. L. acidophilus-L. rhamnosus 15 billion cell cap Take 1 capsule by mouth once daily. FLORAJEN WOMEN. If on antibiotic, take at least 1-2 hours before or after antibiotic. KEEP REFRIGERATED (Patient not taking: Reported on 12/03/2021 ) mupirocin (BACTROBAN) 2 % ointment Apply to affected area three times daily. levonorgestrel (MIRENA) 20 mcg/24 hours (6 yrs) 52 mg IUD 1 Each by INTRAUTERINE route one time only. No current facility-administered medications for this visit. ALLERGIES Allergen Reactions Celexa [Citalopram * Other: See Comments Nightmares Coconut Rash Lexapro [Escitalopr* Other: See Comments Nightmares Zoloft [Sertraline * Other: See Comments Dizziness, intolerance PAST SURGICAL HISTORY Procedure Laterality Date DELIVERY ONLY 03/12/2020 C/S low transverse PAST SURGICAL HISTORY OF wisdom teeth Physical Exam: OBJECTIVE: Constitutional: Pt is a well developed 26 year old female who is alert, oriented, cooperative and in no apparent distress. Eyes: Following during examination. No redness or drainage. Respiratory: RR normal and nonlabored. Even breathing. No evidence of distress. Psychology: Patient is engaged during conversation. Normal affect and mood. Does not appear depressed or anxious. NVSI unchanged from previous visit. Dermatological: B/l hallux lateral nail border s/p matrixectomy. Nail bed appears to be healing without any signs of infection. Webspaces clean and dry 1-4 b/l. Skin appears well hydrated and supple. good color, texture, turgor. No open lesions present. No callosities present. Musculoskeletal/Orthopaedic: Patient has no pain to palpation of b/l hallux ASSESSMENT: (S91.109A) Open wound of toe, initial encounter (primary encounter diagnosis) PLAN: Patient is s/p matrixectomy of b/l hallux lateral nail border. Nail borders appear to be healing without any signs of infection. Continue with local wound care until healed. Reviewed fungal culture. No fungus seen and only one colony of phoma. I suspect this to be contaminant but I will investigate further. Patient very happy with outcome F/u prn Garry Harrington DPM AMB ROOMING INTAKE FLOWSHEET DATA Pain Pain Level: 2 Pain Location: Toe Description: Sore Duration Amount of Time: 3 Duration Units: Weeks Frequency: Intermittent Intervention/Comfort measure: Reposition, Relaxation Patient presents with: Left Great Toe - Follow Up, Ingrown Toenail Right Great Toe - Follow Up, Ingrown Toenail Patient c/o some soreness to toes when touched. documented in this encounter [facility] 04-05-2022 History of Presen t illness Narrative UNIVERSAL PROTOCOL / SAFETY CHECKLIST Procedure to be Performed: Partial matrixectomy, B/L hallux medial borders Sign In: A Moment of CARE was completed. Personnel directly involved with the procedure wore the appropriate PPE (Personal Protective Equipment). No special equipment needed. Patient/Surrogate Stated/Verified: PATIENT VERIFIED(optional for EMERGENT procedures): Patient name, Date of , Relevant allergies and The intended procedure Time Out Communication: Intended patient and procedure match the source documents. Consent documented and matches the intended procedure. No relevant labs, photos, and/or imaging studies were applicable for review. Correct side/site marked and visible. Medications required for procedure verified. No fire risk assessment and interventions applicable. No implant(s) inserted. Sign Out: SIGN OUT (optional for EMERGENT procedures): No specimen collected. All instruments, equipment, possible retained foreign bodies accounted for. Post-procedure follow-up management communicated and Plan of Care Visit completed when applicable. Rama Osborn RN FOLLOW UP PODIATRIC OFFICE VISIT Chief Complaint: This 26 year old who presents for follow up:ingrowing toenails of b/l hallux Patient presents to clinic for follow-up ingrowing toenail of b/l hallux The pain is primarily located to the medial nail border. Patient denies any drainage currently. She has pvr to review. PAIN EVALUATION No data found in the last 1 encounters. Hemoglobin A1C Date Value Ref Range Status 08/06/2021 6.2 (H) 4.3 - 5.6 % Final Comment: [place] [employer] guidelines indicate that patients with HgbA1c in the range 5.7-6.4% are at increased risk for development of diabetes, and intervention by lifestyle modification may be beneficial. HgbA1c greater or equal to 6.5% is considered diagnostic of diabetes. PCP: No primary care provider on file. PAST MEDICAL HISTORY Diagnosis Date Anxiety Asthma childhood Gestational diabetes mellitus, class A1 02/26/2020 Major depression Prolactin increased Current Outpatient Medications Medication Sig ondansetron orally disintegrating (ZOFRAN ODT) 4 mg disintegrating tablet Take 1 tablet by mouth every 6 hours as needed for nausea/vomiting. L. acidophilus-L. rhamnosus 15 billion cell cap Take 1 capsule by mouth once daily. FLORAJEN WOMEN. If on antibiotic, take at least 1-2 hours before or after antibiotic. KEEP REFRIGERATED (Patient not taking: Reported on 12/03/2021 ) mupirocin (BACTROBAN) 2 % ointment Apply to affected area three times daily. levonorgestrel (MIRENA) 20 mcg/24 hours (6 yrs) 52 mg IUD 1 Each by INTRAUTERINE route one time only. No current facility-administered medications for this visit. ALLERGIES Allergen Reactions Celexa [Citalopram * Other: See Comments Nightmares Coconut Rash Lexapro [Escitalopr* Other: See Comments Nightmares Zoloft [Sertraline * Other: See Comments Dizziness, intolerance PAST SURGICAL HISTORY Procedure Laterality Date DELIVERY ONLY 03/12/2020 C/S low transverse PAST SURGICAL HISTORY OF wisdom teeth Physical Exam: OBJECTIVE: Constitutional: Pt is a well developed 26 year old female who is alert, oriented, cooperative and in no apparent distress. Eyes: Following during examination. No redness or drainage. Respiratory: RR normal and nonlabored. Even breathing. No evidence of distress. Psychology: Patient is engaged during conversation. Normal affect and mood. Does not appear depressed or anxious. NVSI unchanged from previous visit. Dermatological: B/l hallux medial nail border is ingrowing with pain. No signs of infection. Webspaces clean and dry 1-4 b/l. Skin appears well hydrated and supple. good color, texture, turgor. No open lesions present. No callosities present. Musculoskeletal/Orthopaedic: Patient has pain to palpation of b/l hallux medial nail border ASSESSMENT: (L60.0) Ingrowing toenail (primary encounter diagnosis) PLAN: Discussed ingrowing toenail. No signs of infection. Ingrown to medial border of b/l hallux. No ingrown to lateral nail border. Patient would like to proceed with matrixectomy of b/l hallux medial nail border Reviewed past a1c. a1c is optimized for procedure Reviewed pvr. She has adequate perfusion. I discussed risk of slow healing however given diabetes and smoking. Offered her chance to stop smoking prior. She states the ingrowns are painful and have led to infections. She would like to proceed with matrixectomy of medial nail border of b/l hallux. Discussed risks of toenail procedure not limited to infection, pain, swelling, bleeding, painful scarring, recurrence, need for revised procedure. Patient consented to proceed. Patient was properly identified by name and procedure. The right hallux was then injected with 3 cc of 1% lidocaine plain. An additional 1.5 cc of 1% lidocaine plain was used for the right foot. The toe was then prepped and draped in the usual aseptic technique. A digital tournicot was applied to the toe. The medial border was then freed and removed. Careful inspection was performed to assure no remaining spicule present. 3 applications of phenol were then administered x 30 seconds each followed by alcohol rinse. Sterile dressing was then applied consisting of amerigel, guaze, tiago and coban. Tournicot was removed and hyperemic response was noted. Patient tolerated well. Patient will f/u in 3 weeks. Discussed risks of toenail procedure not limited to infection, pain, swelling, bleeding, painful scarring, recurrence, need for revised procedure. Patient consented to proceed. Patient was properly identified by name and procedure. The left hallux was then injected with 3 cc of 1% lidocaine plain. The toe was then prepped and draped in the usual aseptic technique. A digital tournicot was applied to the toe. The medial border was then freed and removed. Careful inspection was performed to assure no remaining spicule present. 3 applications of phenol were then administered x 30 seconds each followed by alcohol rinse. The left hallux ingrown was more severe than the right requiring debridement of distal medial nail fold. Silver nitrate was used for hemostasis. Sterile dressing was then applied consisting of amerigel, guaze, tiago and coban. Tournicot was removed and hyperemic response was noted. Patient tolerated well. Patient will f/u in 3 weeks. Fungal culture obtained of nail borders. If fungus, consider lamisil. Garry Harrington DPM Patient presents with: Left Great Toe - Follow Up, Ingrown Toenail Right Great Toe - Follow Up, Ingrown Toenail documented in this encounter [facility] 04-05-2022 Instructions Garry Harrington - 04/05/2022 3:56 PM EDT Post-Op Nail Instructions Minimize activity until the anesthesia wears off (about 2-8 hours). Increase activity to tolerance Remove bandage tomorrow Soak affected toe/foot in epsom salts for 15-20 minutes twice daily After soaking, apply antibiotic ointment (OTC Neosporin) to affected toe and re bandage OTC Ibuprofen if having pain, provided you have no allergies or intolerance to NSAIDS Mild drainage, redness, and blood is expected, but if you expeirence severe pain, increase in drainage, swelling, or red streaking please contact our office immediately Feel free to contact office as well if you have any questions/concerns [phone], ask for Podiatry Nurse documented in this encounter [facility] documented as of this encounter (statuses as of 04/05/2022) [facility] History of Past illness Narrative* Problem Noted Date Resolved Date Gestational diabetes mellitus, class A1 02/26/20 20 04/23/2020 Elevated glucose tolerance test 01/16/2020 02/26/2020 Overview: 01/16/20- 1 hour- 166. Order placed for 3 hour GCT. Vane Velazquez APRN.CNM Pelvic pain in 08/08/2019 019 Overview: 08/08/2019She was seen at [facility] for pelvic cramping. Denies any pain at this visit. Denies any bleeding. HCG was 38821. She was told she was 6 weeks . IUP with + cardiac activity. Miscarriage precautions given. Patient to call/come in if she develops any bleeding, pain or cramping. TKRN Patient request for diagnostic testing 9 02/26/2020 Overview: 08/08/2019Patient desires nuchal ultrasound. Considering genetic carrier screening testing. 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 Order placed for 3 hour GCT. Vane Plotts, MAILING SECTION CLERK.CNM Pelvic pain in 08/08/2019 Overview: 08/08/2019She was seen at [facility] for pelvic cramping. Denies any pain at this visit. Denies any bleeding. HCG was 66664. She was told she was 6 weeks . IUP with + cardiac activity. Miscarriage precautions given. Patient to call/come in if she develops any bleeding, pain or cramping. TKRN Patient request for diagnostic testing 9 02/26/2020 Overview: 08/08/2019Patient desires nuchal ultrasound. Considering genetic carrier screening testing. 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 Order placed for 3 hour GCT. Vane Velazquez APRN.CNM Pelvic pain in 08/08/2019 Overview: 08/08/2019She was seen at [facility] for pelvic cramping. Denies any pain at this visit. Denies any bleeding. HCG was 04920. She was told she was 6 weeks . IUP with + cardiac activity. Miscarriage precautions given. Patient to call/come in if she develops any bleeding, pain or cramping. TKRN Patient request for diagnostic testing 9 02/26/2020 Overview: 08/08/2019Patient desires nuchal ultrasound. Considering genetic carrier screening testing. 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 Order placed for 3 hour GCT. Vane Velazquez APRN.CNM Pelvic pain in 08/08/2019 019 Overview: 08/08/2019Shnancie was seen at [facility] for pelvic cramping. Denies any pain at this visit. Denies any bleeding. HCG was 26359. She was told she was 6 weeks . IUP with + cardiac activity. Miscarriage precautions given. Patient to call/come in if she develops any bleeding, pain or cramping. TKRN Patient request for diagnostic testing 9 02/26/2020 Overview: 08/08/2019Patient desires nuchal ultrasound. Considering genetic carrier screening testing. 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 Order placed for 3 hour GCT. Vane Velazquez APRN.CNM Pelvic pain in 08/08/2019 019 Overview: 08/08/2019Shnancie was seen at [facility] for pelvic cramping. Denies any pain at this visit. Denies any bleeding. HCG was 48221. She was told she was 6 weeks . IUP with + cardiac activity. Miscarriage precautions given. Patient to call/come in if she develops any bleeding, pain or cramping. TKRN Patient request for diagnostic testing 9 02/26/2020 Overview: 08/08/2019Patient desires nuchal ultrasound. Considering genetic carrier screening testing. 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 Order placed for 3 hour GCT. Vane Velazquez APRN.MIKHAIL Pelvic pain in 08/08/201907/2019 Overview: 08/08/2019Shnancie was seen at [facility] for pelvic cramping. Denies any pain at this visit. Denies any bleeding. HCG was 52596. She was told she was 6 weeks . IUP with + cardiac activity. Miscarriage precautions given. Patient to call/come in if she develops any bleeding, pain or cramping. TKRN Patient request for diagnostic testing 08/08/2019 02/26/2020 Overview: 08/08/2019Patient desires nuchal ultrasound. Considering genetic carrier screening testing. 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 Order placed for 3 hour GCT. Vane Velazquez APRN.CNM Pelvic pain in 08/08/201907/2019 Overview: 08/08/2019She was seen at [facility]. for pelvic cramping. Denies any pain at this visit. Denies any bleeding. HCG was 17997. She was told she was 6 weeks . IUP with + cardiac activity. Miscarriage precautions given. Patient to call/come in if she develops any bleeding, pain or cramping. TKRN Patient request for diagnostic testing 08/08/2019 02/26/2020 Overview: 08/08/2019Patient desires nuchal ultrasound. Considering genetic carrier screening testing. 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 Order placed for 3 hour GCT. Vane Velazquez APRN.CNM Pelvic pain in 08/08/201907/2019 Overview: 08/08/2019She was seen at [facility] for pelvic cramping. Denies any pain at this visit. Denies any bleeding[place] [address]. She was told she was 6 weeks . IUP with + cardiac activity. Miscarriage precautions given. Patient to call/come in if she develops any bleeding, pain or cramping. TKRN Patient request for diagnostic testing 08/08/2019 02/26/2020 Overview: 08/08/2019Patient desires nuchal ultrasound. Considering genetic carrier screening testing. 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 019 Irregular menstrual cycle 02/28/2017 documented as of this encounter (statuses as of 09/22/2023) [facility] No data available for this section [facility] Evaluation note* Diagnosis Ingrowing toenail- Primary Ingrowing nail Onychomycosis Dermatophytosis of nail documented [facility] Diagnosis Open wound of toe, initial encounter- Primary [facility] Diagnosis Encounter for gynecological examination with abnormal finding- Primary Routine gynecological examination Chronic nausea Nausea alone Unintentional weight loss Loss of weight Encounter for counseling regarding contraception Encounter for BCP ( control pills) initial prescription General counseling for prescription of oral contraceptives Encounter for screening for human papillomavirus (HPV) Special screening examination for human papillomavirus (HPV) Screening for cervical cancer Screening for malignant neoplasm of the cervix Screen for STD (sexually transmitted disease) Screening examination for venereal disease Class 3 severe obesity with body mass index (BMI) of 40.0 to 44.9 in adult, unspecified obesity type, unspecified whether serious comorbidity present (HCC) [facility] Diagnosis Chronic nausea- Primary Nausea alone Epigastric pain Abdominal pain, epigastric documented in this [facility]* Diagnosis URI, acute- Primary Acute upper respiratory infections of unspecified site History of asthma Personal history of other diseases of respiratory system [facility]* Diagnosis Obesity, Class III, BMI 40-49.9 (morbid obesity) (HCC)- Primary Morbid obesity Obesity, Class III, BMI >= 40 Morbid obesity Chronic nausea Nausea alone Epigastric pain Abdominal pain, epigastric documented [facility]* Diagnosis Nausea- Primary Nausea alone documented in this encounter [facility] for referral (narrative)* Outpatient Procedure (Routine) - Authorized Specialty Diagnoses / Procedures Referred By Karine mello Referred To Contact [facility] Diagnoses Chronic nausea Epigastric pain Procedures EGD DIAGNOSTIC ESOPHAGOGASTRODUODENOS COPY TRANSORAL DIAGNOSTIC Marilee Solis PA-C [address] [place] [address] [facility] [address] [place] [address] Referral ID Status Reason Start Date Expiration Date Visits Requested Visits Authorized [id number] Authorized Auto-Generat ed Referral 03/02/2023 03/02/2024 1 1 [facility] for referral (narrative)* Outpatient Procedure (Routine) - Closed Specialty Diagnoses / Procedures Referred By Contac t Referred To Contact [facility] Diagnoses Chronic nausea Epigastric pain Procedures EGD DIAGNOSTIC ESOPHAGOGASTRODUODENOS COPY TRANSORAL DIAGNOSTIC Marilee Eldridge PA-C [address] [place] [address] [address] Referral ID Status Reason Start Date Expiration Date V isits Requested Visits Authorized [id number] Closed Auto-Generate d Referral 03/02/2023 03/02/2024 1 1 [facility] for visit Narrative* Outpatient Procedure (Routine) - Closed Specialty Diagnoses / Procedures Referred By Contac t Referred To Contact [facility] Diagnoses Chronic nausea Epigastric pain Procedures EGD DIAGNOSTIC ESOPHAGOGASTRODUODENOS COPY TRANSORAL DIAGNOSTIC Marilee Eldridge PA-C [address] [place] [address] [address] Referral ID Status Reason Start Date Expiration Date V isits Requested Visits Authorized [id number] Closed Auto-Generate d Referral 03/02/2023 03/02/2024 1 1 [facility] Summary Purpose Family History No Family History Records FoundNo Family History Records FoundNo Family History Records FoundNo Family History Records FoundNo Family History Records Found No data available for this section No Family History Records Found Advance Directives No Advanced Directives Records FoundDocuments on File Type Date Recorded Patient 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 Advance Directive(s) 09/02/2019 8:22 PM Advance Directive(s) 09/10/2017 6:47 PM Reason for Referral Specialty Diagnoses / Procedures Referred By Contac t Referred To Contact Gastroenterology Diagnoses Chronic nausea Unintentional weight loss Procedures CONSULT TO GASTROENTEROLOGY OFFICE/OUTPATIENT NEW HIGH MDM 60-74 MINUTES Kasandra Morris, MAILING SECTION CLERK.WIRER MAINTENANCE [address] [place] [address] Referral ID Status Reason Start Date Expiration Date Visits Requested Visits Authorized [id number] Authorized PCP Requested Referral 02/21/2023 02/21/2024 1 1 Medications Administered Section Inactive Administered Medications - up to 3 most recent administrations Medication Order MAR Action Action Date Dose Rate Site benzocaine 20% 1 [place] (TOPEX) 1 [place], TOPICAL, DIRECTED, Starting on Astrid 03/23/23 at 1330, Until Astrid 03/23/23 at 1729, DOSING DIRECTED BY PHYSICIAN FOR PROCEDURAL SEDATION ONLY - Pharmaceutical Waste: Aerosol -, Intraprocedure Given 03/23/2023 1:01 PM EDT 1 [place] diphenhydrAMINE 12.5-50 mg injection (BENADRYL) 12.5-50 mg, INTRAVENOUS, DIRECTED, Starting on Astrid 03/23/23 at 1330, Until Astrid 03/23/23 at 1729, DOSING DIRECTED BY PHYSICIAN FOR PROCEDURAL SEDATION ONLY, Intraprocedure Given 03/23/2023 1:04 PM EDT 50 mg fentaNYL 50 mcg/mL 25-100 mcg injection (SUBLIMAZE) 25-100 mcg, INTRAVENOUS, DIRECTED, Starting on Astrid 03/23/23 at 1330, Until Astrid 03/23/23 at 1729, DOSING DIRECTED BY PHYSICIAN FOR PROCEDURAL SEDATION ONLY, Intraprocedure Given 03/23/2023 1:06 PM EDT 50 mcg Additional Source Comments INFORMATION SOURCE (unrecogn ized section and content) DATE CREATED AUTHOR AUTHOR'S ORGANIZ ATION 05/09/2018 [facility] DATE CREATED AUTHOR AUTHOR'S ORGANIZ ATION 07/05/2019 [facility] ([place]) DATE CREATED AUTHOR AUTHOR'S ORGANIZ ATION 08/21/2019 [facility] DATE CREATED AUTHOR AUTHOR'S ORGANIZ ATION 12/05/2020 [facility] DATE CREATED AUTHOR AUTHOR'S ORGANIZ ATION 09/23/2023 [facility] Source Comments (unrecognize d section and content) In the event this informatio n is protected by the Federal Confidentiality of Alcohol and Drug Abuse Patient Records regulations: The Federal rules restrict any use of the information to criminally investigate or prosecute any alcohol or drug abuse patient.[facility] the event this information is protected by the Federal Confidentiality of Alcohol and Drug Abuse Patient Records regulations: The Federal rules restrict any use of the information to criminally investigate or prosecute any alcohol or drug abuse patient.[facility] the event this information is protected by the Federal Confidentiality of Alcohol and Drug Abuse Patient Records regulations: The Federal rules restrict any use of the information to criminally investigate or prosecute any alcohol or drug abuse patient.[facility] the event this information is protected by the Federal Confidentiality of Alcohol and Drug Abuse Patient Records regulations: The Federal rules restrict any use of the information to criminally investigate or prosecute any alcohol or drug abuse patient.[facility] the event this information is protected by the Federal Confidentiality of Alcohol and Drug Abuse Patient Records regulations: The Federal rules restrict any use of the information to criminally investigate or prosecute any alcohol or drug abuse patient.[facility] the event this information is protected by the Federal Confidentiality of Alcohol and Drug Abuse Patient Records regulations: The Federal rules restrict any use of the information to criminally investigate or prosecute any alcohol or drug abuse patient.[facility] the event this information is protected by the Federal Confidentiality of Alcohol and Drug Abuse Patient Records regulations: The Federal rules restrict any use of the information to criminally investigate or prosecute any alcohol or drug abuse patient.[facility] the event this information is protected by the Federal Confidentiality of Alcohol and Drug Abuse Patient Records regulations: The Federal rules restrict any use of the information to criminally investigate or prosecute any alcohol or drug abuse patient.[facility] the event this information is protected by the Federal Confidentiality of Alcohol and Drug Abuse Patient Records regulations: The Federal rules restrict any use of the information to criminally investigate or prosecute any alcohol or drug abuse patient.[facility] the event this information is protected by the Federal Confidentiality of Alcohol and Drug Abuse Patient Records regulations: The Federal rules restrict any use of the information to criminally investigate or prosecute any alcohol or drug abuse patient.[facility] Reason for Visit (unrecogniz ed section and content) Specialty Diagnoses / Procedures Referred By Karine mello Referred To Contact PODIATRY Diagnoses Ingrown toenail Procedures Ingrown toenail Garry Harrington [address] [facility] [place] [address] [facility] [address] [place] [address] Referral ID Status Reason Start Date Expiration Date Visits Requested Visits Authorized [id number] Pending Review OON/Self Pay Override 04/05/2022 07/04/2022 1 1 Reason Comments Well Woman Reason Comments Results Reason Comments Nausea Reason Comments Cough Pt reported chest co ngestion, (LT) ear pain x3 days. Reason Comments Nausea & Vomiting Dizziness, fatigue, cough x 2 days Care Teams (unrecognized sec tion and content) Block And Case Maker Relationship Specialty Start Date End Date Emelyn Azevedo APRN.WIRER MAINTENANCE [address] [place] [address] PCP - General Family Medicine 02/21/23 Block And Case Maker Relationship Specialty Start Date End Date Podlogar, , MAILING SECTION CLERK.WIRER MAINTENANCE [address] [place] [address] PCP - General Family Medicine 02/21/23 Block And Case Maker Relationship Specialty Start Date End Date Podlogar, , MAILING SECTION CLERK.WIRER MAINTENANCE [address] [place] [address] PCP - General Family Medicine 02/21/23 Block And Case Maker Relationship Specialty Start Date End Date Podlogar, , MAILING SECTION CLERK.WIRER MAINTENANCE [address] [place] [address] PCP - General Family Medicine 02/21/23 Block And Case Maker Relationship Specialty Start Date End Date Podlogar, , MAILING SECTION CLERK.WIRER MAINTENANCE [address] [place] [address] PCP - General Family Medicine 02/21/23 Block And Case Maker Relationship Specialty Start Date End Date Podlogar, , MAILING SECTION CLERK.WIRER MAINTENANCE [address] [place] [address] PCP - General Family Medicine 02/21/23 FOR RECORDS PERTAINING TO PATIENTS WHO ARE OR HAVE BEEN ENROLLED IN A CHEMICAL DEPENDENCY/SUBSTANCEABUSE PROGRAM, SOME INFORMATION MAY BE OMITTED. This clinical summary was aggregated from multiple sources. Caution should be exercised in using it in the provision of clinical care. This summary normalizes information from multiple sources, and as a consequence, information in this document may materially change the coding, format and clinical context of patient data. In addition, data may be omitted in some cases. CLINICAL DECISIONS SHOULD BE BASED ON THE PRIMARY CLINICAL RECORDS. [email or web address] [facility]. provides no warranty or guarantee of the accuracy or completeness of information in this document.
[2023-12-14 20:08] LABS: Bacteria 0 SEEN /hpf (None Seen); Mucous, Urine 0 SEEN /hpf (<or=2+); Red Blood Cells-Urine 0 SEEN /hpf (0-5); Squamous Epithelial Cells - UA 0 SEEN /hpf (5-10); White Blood Cells 0 SEEN /hpf (0-5)
[2023-12-14 20:10] LABS: Absolute Lymphocyte Count 1.28 X10^3/uL (0.83-4.51); Absolute Neutrophil Count 2.1 X10^3/uL (2.0-7.7); Basophil# 0.02 X10^3/uL; Basophil% 0.5 % (0-1); Eosinophil# 0.01 X10^3/uL; Eosinophils% 0.2 % (0-5); Hematocrit 37.5 % (37-47); Hemoglobin 12.6 g/dL (12.0-15.0); Lymphocyte # 1.28 X10^3/ul (0.83-4.51); Lymphocyte % 31.8 % (19-41); Mean Corp Hgb Conc 33.6 g/dL (32-36); Mean Corpuscular Hgb 31.6 pg (27.0-32.0); Mean Platelet Vol. 9.4 fl (6.2-12.0); Monocyte% 14.9 % (0-10); NRBC Flagged by Analyzer 0 % (0-5); Neutrophil % 52.4 % (47-70); Platelet Count 235 K/mm3 (150-450); RBC Distribution Width CV 12.2 % (11.6-14.6); RBC Distribution Width SD 42.6 fl (35.1-43.9); Red Blood Count 3.99 M/mm3 (4.2-5.4)
[2023-12-14 20:15] LABS: Color, Urine Yellow (Yellow); Glucose, Dipstick Normal (Normal); Ketone-Dipstick 5 mg/dl (Negative); Leukocyte Esterase-Dipstick Negative /ul (Negative); Nitrite-Dipstick Negative (Negative); Occult Blood-Urine 10 /ul (Negative); Protein-Dipstick Negative (Negative); Urine Bilirubin Dipstick Negative (Negative); Urine Clarity Clear (Clear); Urine Urobilinogen Normal (Normal)
[2023-12-14 20:24] LABS: Internal QC Validated? YES +Cl - CLEAR BKGD; Pregnancy, Urine Negative Negative
[2023-12-14] MEDS: Mag Hydrox/Al Hydrox/Simeth 30 ML UDC PO (20:24)
[2023-12-14] MEDS: Ondansetron 4 MG/2 ML Vial IV (20:24)
[2023-12-14] MEDS: Ketorolac 15 MG/ML Vial IV (20:24)
[2023-12-14 20:25] LABS: ALB/GLOB Ratio 0.8 RATIO (0.9-2.4); AST(SGOT) 30 U/L (15-37); Alanine Aminotransfer ALT/SGPT 29 U/L (13-56); Albumin, Serum 3.4 g/dL (3.2-5.0); Alkaline Phosphatase 63 U/L (45-117); Anion Gap 5 (5-15); BUN 7 mg/dL (7-18); BUN/Creat Ratio 7.9 RATIO (10-20); Calcium,Total 8.8 mg/dL (8.5-10.1); Chloride 109 mmol/L (98-107); Creatinine, Serum 0.88 mg/dL (0.55-1.02); EST Glomerular Filtration Rate 81 mL/min (>60); Est Glom Filt Rate - Afr Amer 98 mL/min (>60); Estimated Creatinine Clearance 105.13 ml/min; Glucose 92 mg/dL (74-106); Lipase 20 U/L (13-75); Potassium 3.7 mmol/L (3.5-5.1); Protein, Total 7.4 g/dL (6.4-8.2); Sodium Level 138 mmol/L (136-145)
[2023-12-14 21:07] VITALS: BP 122/67; PULSE 71; RESP 15; O2SAT 99
== END 2023-12-14 21:10 | disposition home or self-care (01) ==
PROVIDERS: Nurse Practitioner; Emergency Provider Emergency Medicine; PCP Student in an Organized Health Care Education/Training Program; Visit Provider Emergency Medicine
DX: K21.9 Gastro-esophageal reflux disease without esophagitis (principal); F17.200 Nicotine dependence, unspecified, uncomplicated
CPT/HCPCS: 80053; 81001; 81025; 83690; 85025; 96374; 96375; 99282; A4216; J2405

== ENCOUNTER 2025-03-21 12:18 | Emergency (ER) | payer MEDICAID, SELFPAY ==
[2025-03-21] VITALS (7 sets, daily range): BP systolic 111–130; BP diastolic 68–94; PULSE 71–91; RESP 17–18; TEMP 36.1–37; O2SAT 98–100; BMI 36.0
[2025-03-21 12:49] LABS: Absolute Lymphocyte Count 3.15 X10^3/uL (0.83-4.51); Absolute Neutrophil Count 7.7 X10^3/uL (2.0-7.7); Basophil# 0.05 X10^3/uL; Basophil% 0.4 % (0-1); Eosinophil# 0.18 X10^3/uL; Eosinophils% 1.5 % (0-5); Hematocrit 37.7 % (37-47); Hemoglobin 13.4 g/dL (12.0-15.0); Lymphocyte # 3.15 X10^3/ul (0.83-4.51); Lymphocyte % 26.6 % (19-41); Mean Corp Hgb Conc 35.5 g/dL (32-36); Mean Corpuscular Hgb 33.9 pg (27.0-32.0); Mean Corpuscular Volume 95.4 fL (81-99); Mean Platelet Vol. 9.1 fl (6.2-12.0); Monocyte# 0.65 X10^3/uL; Monocyte% 5.5 % (0-10); NRBC Flagged by Analyzer 0 % (0-5); Neutrophil # 7.73 X10^3/uL (2.7-7.7); Neutrophil % 65.5 % (47-70); Platelet Count 258 K/mm3 (150-450); RBC Distribution Width CV 11.9 % (11.6-14.6); RBC Distribution Width SD 41.5 fl (35.1-43.9); Red Blood Count 3.95 M/mm3 (4.2-5.4); White Blood Count 11.8 K/mm3 (4.4-11.0)
--- NOTE | 2025-03-21 12:55 | EX.ED.DYSGE1 ---
HPI History of Present Illness Chief Complaint: Syncope Informant: patient Onset/Context/Timing Onset: Yesterday Context: Sudden Onset Timing: Intermittent Quality: Syncope Location: Generalized Worsened by: Prolonged standing Relieved by: Nothing Narrative Narrative: Patient presents with syncopal episode that occurred yesterday. Patient states that she had an episode where she was standing and then started having some ringing in her ears then she became disoriented. Patient states she attempted to walk to her couch but then fell to the floor and passed out. Patient is unsure how long she was out for. Patient states she did feel her heart racing. Patient states she has had similar episodes in the past after prolonged standing. Patient is approximately 15 weeks . Patient denies any vaginal bleeding or discharge. Patient denies any abdominal trauma. Patient states she had an ultrasound a few days ago and it was an intrauterine . Patient is not been having any abdominal pain. [facility] Medical History (Updated 03/21/25 @ 16:[address] Osvaldo Gordon, DO) Use of cannabinoid edibles History of depression Hyperprolactinemia Home Medications ?Medication ?Instructions ?Recorded ?Last Taken ?Type vit no.95-ferrous 1 ea PO DAILY 10/25/19 1 Day Ago History fumarate 28 mg-folic acid 800 mcg ~03/11/20 tablet acetaminophen 500 mg tablet 1,000 mg (2 x 500 mg) PO Q8H PRN 03/13/20 Unknown Rx Pain Score 1-3/10 ibuprofen 800 mg tablet 800 mg PO Q8H PRN PRN Pain Score 03/13/20 Unknown Rx 1-5/10 #30 tabs prednisone 20 mg tablet 60 mg (3 x 20 mg) PO DAILY #12 07/27/21 Unknown Rx TABLETS meloxicam 15 mg tablet 15 mg PO DAILY #30 tabs 02/13/23 Unknown Rx omeprazole 20 mg capsule,delayed 20 mg PO DAILY #30 CAPSULES 07/11/23 Unknown Rx release ondansetron 4 mg disintegrating 4 mg PO Q8H PRN PRN Nausea #10 tabs 07/11/23 Unknown Rx tablet amoxicillin 875 mg-potassium 1 tab PO BID #20 tabs 10/27/23 Unknown Rx clavulanate 125 mg tablet pantoprazole 40 mg tablet,delayed 40 mg PO DAILY #30 tabs 10/27/23 Unknown Rx release (Protonix) sucralfate 1 gram tablet (Carafate) 1 g PO .QID #56 tabs 10/27/23 Unknown Rx omeprazole 40 mg capsule,delayed 40 mg PO DAILY #30 caps 12/14/23 Unknown Rx release Allergy/AdvReac Type Severity Reaction Status Date / Time coconut Allergy Rash Verified 03/21/25 12:22 dimethicone (From [facility]erm[facility]) Allergy Rash Verified 03/21/25 12:22 guaifenesin (From Mucinex) Allergy Hives Verified 03/21/25 12:22 triamcinolone (From Allergy Rash Verified 03/21/25 12:22 [facility]) sertraline HCl (From Zoloft) AdvReac Other Verified 03/21/25 12:22 Surgical History (Updated 03/21/25 @ 16:[address] Osvaldo Gordon DO) Hx of section Social History household members: spouse housing: house Smoking Status: Light Smoker (<10/day) alcohol intake: current alcohol intake frequency: holidays/special occasions only ROS ROS ED Constitutional Constitutional ED: Denies chills or fever(s) Eyes Eyes: Reports blurry vision; Denies change in vision ENT ENT ED: Denies rhinorrhea or sore throat Cardiovascular Cardiovascular: Reports palpitations and racing heartbeat; Denies chest pain Respiratory/Chest Respiratory/Chest: Reports cough; Denies dyspnea Gastrointestinal Gastrointestinal: Denies nausea or vomiting Genitourinary Genitourinary ED: Denies dysuria or hematuria Musculoskeletal Musculoskeletal: Denies back pain or neck pain Integumentary Denies abscess or rash Neurologic Neurologic: Denies headache(s) or weakness Allergic/Immunologic Allergic/Immunologic ED: Denies mouth swelling or urticaria EXAM Physical Exam Const Vital Signs: 03/21/25 12:22 03/21/25 12:41 03/21/25 12:41 Temperature 97 F L Temperature Source Temporal Pulse Rate 75 Pulse Rate [Lying] Pulse Rate [Sitting (for 1 minute prior to obtaining)] Pulse Rate [Standing (for 1 minute prior to obtaining)] Respiratory Rate 18 Respiratory Effort Normal Non-Labored Respiratory Pattern Normal Blood Pressure 130/94 H Blood Pressure [Lying] Blood Pressure [Sitting (for 1 minute prior to obtaining)] Blood Pressure [Standing (for 1 minute prior to obtaining)] Blood Pressure Mean 106 Blood Pressure Mean [Lying] Blood Pressure Mean [Sitting (for 1 minute prior to obtaining)] Blood Pressure Mean [Standing (for 1 minute prior to obtaining)] Pulse Ox 100 98 Oxygen Delivery Method Room Air Room Air 03/21/25 12:43 03/21/25 14:20 03/21/25 16:00 Temperature Temperature Source Pulse Rate 78 74 Pulse Rate [Lying] 72 Pulse Rate [Sitting (for 1 minute prior to obtaining)] 78 Pulse Rate [Standing (for 1 minute prior to obtaining)] 91 Respiratory Rate 17 Respiratory Effort Respiratory Pattern Blood Pressure 114/82 H 111/71 Blood Pressure [Lying] 121/75 H Blood Pressure [Sitting (for 1 minute prior to obtaining)] 114/80 Blood Pressure [Standing (for 1 minute prior to obtaining)] 120/92 H Blood Pressure Mean 92 84 Blood Pressure Mean [Lying] 90 Blood Pressure Mean [Sitting (for 1 minute prior to obtaining)] 91 Blood Pressure Mean [Standing (for 1 minute prior to obtaining)] 101 Pulse Ox 99 99 Oxygen Delivery Method Room Air 03/21/25 16:45 03/21/25 16:46 Temperature 98.6 F 97.8 F Temperature Source Pulse Rate 74 71 Pulse Rate [Lying] Pulse Rate [Sitting (for 1 minute prior to obtaining)] Pulse Rate [Standing (for 1 minute prior to obtaining)] Respiratory Rate 17 17 Respiratory Effort Respiratory Pattern Blood Pressure 111/71 117/68 Blood Pressure [Lying] Blood Pressure [Sitting (for 1 minute prior to obtaining)] Blood Pressure [Standing (for 1 minute prior to obtaining)] Blood Pressure Mean 84 84 Blood Pressure Mean [Lying] Blood Pressure Mean [Sitting (for 1 minute prior to obtaining)] Blood Pressure Mean [Standing (for 1 minute prior to obtaining)] Pulse Ox 99 99 Oxygen Delivery Method Positive well nourished and well developed General Appearance ED: well developed and NAD HEENT Reports moist mucous membranes Neck supple and no JVD Resp normal respiratory effort and clear to auscultation bilaterally Cardio regular rate and regular rhythm GI non-tender and non-distended Palpation: soft Neuro oriented x3, CN's II-XII intact bilaterally and no sensory deficits noted Sensorium / Orientation: alert Motor Exam: strength 5/5 throughout Psych mental status grossly normal MDM MDM MDM Narrative Medical decision making narrative: Differential diagnosis includes vasovagal syncope, orthostatic hypotension, cardiac dysrhythmia, cardiac ischemia, electrolyte abnormality, and dehydration. CBC will be obtained to assess for leukocytosis and anemia. Comprehensive metabolic profile will be obtained to assess for hepatic function, renal function, and electrolyte abnormality. Urinalysis will be obtained to assess for urinary tract infection and hematuria. Chest x-ray will be obtained to assess for pneumonia and pneumothorax. EKG will be obtained to assess for cardiac dysrhythmia and cardiac ischemia. History & Record Review Additional record(s) reviewed:: Prior labs Lab Data Attestation: I reviewed the patient's lab results. Lab results narrative: CBC was reviewed and was within normal limits with the exception of a slight leukocytosis of 11.8. Comprehensive metabolic profile was reviewed and was essentially within normal limits. Urinalysis was reviewed. There is no evidence of urinary tract infection or hematuria. Labs: Laboratory Results - last 24 hr 03/21/25 03/21/25 03/21/25 12:39 12:43 14:37 WBC 11.8 H RBC 3.95 L Hgb 13.4 Hct 37.7 MCV 95.4 MCH 33.9 H MCHC 35.5 RDW Std Deviation 41.5 RDW Coeff of Srinivas 11.9 Plt Count 258 MPV 9.1 Immature Gran % (Auto) 0.500 Neut % (Auto) 65.5 Lymph % (Auto) 26.6 [place] % (Auto) 5.5 Eos % (Auto) 1.5 Baso % (Auto) 0.4 Absolute Neuts (auto) 7.7 Absolute Lymphs (auto) 3.15 Nucleated RBC % 0 Sodium 135 Potassium 3.5 Chloride 103 Carbon Dioxide 19.7 L Anion Gap 12 BUN 5 Creatinine 0.57 L Estim Creat Clear Calc 170.31 Est GFR (MDRD) Non-Af 126 BUN/Creatinine Ratio 9.0 L Glucose 89 Calcium 9.0 Total Bilirubin 0.29 AST 16 ALT < 5 Alkaline Phosphatase 58 Total Protein 7.4 Albumin 3.9 Globulin 3.5 Albumin/Globulin Ratio 1.1 Urine Color Straw Urine Clarity Clear Urine pH 7.0 Ur Specific [place] 1.010 Urine Protein 15 H Urine Glucose (UA) Normal Urine Ketones Negative Urine Occult Blood Negative Urine Nitrite Negative Urine Bilirubin Negative Urine Urobilinogen Normal Ur Leukocyte Esterase Negative POC Glucose 89 Radiography Chest X-Ray - ED: 2 View, Read by ED Physician, Read by Radiologist and No Acute Disease Diagnostic Testing: Clinical Impression(s) from Imaging Studies Chest X-Ray 03/21/25 14:55 IMPRESSION: NO ACUTE FINDINGS. Reading Location: [facility] and lateral chest x-ray was obtained. There are 2 views. On my independent interpretation, lung melgoza are clear. There is normal cardiac silhouette. Bony thorax is normal. There is no acute process noted. Radiologist also interpreted the x-ray and agrees. EKG Initial EKG: Attestation: I personally reviewed and interpreted this EKG as follows: Interpretation: Sinus Rhythm (75) and Non-Specific ST Changes Comments: EKG was obtained. On my independent interpretation, it showed a normal sinus rhythm with a rate of []. IN interval, QRS interval, and QTc intervals were all normal. [place] was normal. There are no acute ST or T wave changes. Prior EKG tracings: available for review Prior: Unchanged (06/22/2015) Treatment and Re-Evaluation :: Patient was advised of her findings. Patient is feeling better on reevaluation. Patient was instructed to follow-up with her primary care physician in 5 to 7 days for further evaluation. Patient was also instructed to follow-up with her RADIATION CONTROL SPECIALIST. Patient understood and was agreeable with plan. All questions were answered. Discharge Plan Triage Chief Complaint: Syncope ED Provider: Osvaldo Gordon Dx/Rx/DC Orders Clinical Impression: Syncope and collapse, Tobacco use, Instructions: ED Fainting, Uncertain Cause Prescriptions: No Action PNV cmb#95-ferrous fumarate-FA 1 EACH tablet 1 ea PO DAILY acetaminophen 500 MG tablet 1,000 mg PO Q8H PRN (Reason: Pain Score 1-3/10) 0RF ibuprofen 800 MG tablet 800 mg PO Q8H PRN PRN (Reason: Pain Score 1-5/10) Qty: 30 0RF prednisone 20 MG tablet 60 mg PO DAILY Qty: 12 0RF meloxicam 15 mg tablet 15 mg PO DAILY Qty: 30 0RF omeprazole [omeprazole] 20 mg capsule,delayed release(DR/EC) 20 mg PO DAILY Qty: 30 0RF ondansetron [ondansetron] 4 mg tablet,disintegrating 4 mg PO Q8H PRN PRN (Reason: Nausea) Qty: 10 0RF amoxicillin-pot clavulanate 875-125 mg tablet 1 tab PO BID Qty: 20 0RF pantoprazole [Protonix] 40 mg tablet,delayed release (DR/EC) 40 mg PO DAILY Qty: 30 0RF sucralfate [Carafate] 1 gram tablet 1 g PO .QID Qty: 56 0RF omeprazole 40 mg capsule,delayed release(DR/EC) 40 mg PO DAILY Qty: 30 1RF Primary Care Provider: Kalpana Renee Referrals: Kalpana Renee, TAWANA [Primary Care Provider] - 5-7 Days Franki Anna DO [Non-Staff] - 5-7 Days Print Language: Mosotho Disposition Disposition: Home, Self Care Discharge Date/Time: 03/21/25 16:47
[2025-03-21 13:05] LABS: Bedside Glucose 89 mg/dL (74-106)
[2025-03-21 13:41] LABS: ALB/GLOB Ratio 1.1 RATIO (0.9-2.4); AST(SGOT) 16 U/L (<=31); Alanine Aminotransfer ALT/SGPT < 5 U/L (<=34); Albumin, Serum 3.9 g/dL (3.5-5.0); Alkaline Phosphatase 58 U/L (35-104); Anion Gap 12 (5-15); BUN 5 mg/dL (4-19); Carbon Dioxide 19.7 mmol/L (21.0-32.0); Chloride 103 mmol/L (98-108); Creatinine, Serum 0.57 mg/dL (0.70-1.20); EST Glomerular Filtration Rate 126 (>60); Estimated Creatinine Clearance 170.31 ml/min (50-250); Globulin 3.5 g/dL (2.2-4.2); Glucose 89 mg/dL (70-99); Potassium 3.5 mmol/L (3.3-5.1); Protein, Total 7.4 g/dL (5.9-8.4); Sodium Level 135 mmol/L (133-145); Total Bilirubin 0.29 mg/dL (0.00-1.30)
[2025-03-21 14:44] LABS: Bacteria 0 SEEN /hpf (None Seen); Mucous, Urine 0 SEEN /hpf (<or=2+)
--- NOTE | 2025-03-21 14:55 | RAD_ITS ---
PROCEDURE: CHEST PA AND LATERAL 03/21/2025 REASON FOR EXAM: SYNCOPE TECHNIQUE: Frontal and lateral views of the chest. COMPARISON: NO RELEVANT PRIOR FINDINGS: Lungs: Lungs clear of pneumonia and congestion. Pleura: No pleural effusions, thickening, or pneumothorax. Heart: Normal in size and configuration. Mediastinum/Nancy: Unremarkable. Great vessels: Unremarkable. Bones/soft tissues: Unremarkable. RAD/Chest PA and Lateral IMPRESSION: NO ACUTE FINDINGS. Reading Location: [facility]
[2025-03-21 15:25] LABS: Color, Urine Straw (Yellow); Glucose, Dipstick Normal (Normal); Ketone-Dipstick Negative (Negative); Leukocyte Esterase-Dipstick Negative /ul (Negative); Nitrite-Dipstick Negative (Negative); Occult Blood-Urine Negative /ul (Negative); Protein-Dipstick 15 mg/dl (Negative); Urine Bilirubin Dipstick Negative (Negative); Urine Clarity Clear (Clear); Urine Urobilinogen Normal (Normal)
[2025-03-21 17:16] LABS: Red Blood Cells-Urine 0-5 SEEN /hpf (0-5); Squamous Epithelial Cells - UA 0-5 SEEN /hpf (5-10); White Blood Cells 0-5 SEEN /hpf (0-5)
== END 2025-03-21 16:47 | disposition home or self-care (01) ==
PROVIDERS: Emergency Provider Emergency Medicine; PCP Clinical Nurse Specialist Adult Health; Visit Provider Emergency Medicine
DX: O99.891 Other specified diseases and conditions complicating pregnancy (principal); O99.332 Smoking (tobacco) complicating pregnancy, second trimester; R55 Syncope and collapse; F17.200 Nicotine dependence, unspecified, uncomplicated; Z3A.15 15 weeks gestation of pregnancy
CPT/HCPCS: 71046; 80053; 81001; 82962; 85025; 93005; 99284; A4216

== ENCOUNTER 2025-09-10 09:31 | Inpatient (IN) | payer MEDICAID, SELFPAY ==
[2025-09-10] VITALS (19 sets, daily range): BP systolic 88–125; BP diastolic 62–101; PULSE 57–101; RESP 16–22; TEMP 36.1–36.6; O2SAT 92–100; BMI 44.3
[2025-09-10] MEDS: Lactated Ringers 1,000 ML 999 ML IV (09:45)
[2025-09-10 10:21] LABS: Hematocrit 31.9 % (37-47); Hemoglobin 10.7 g/dL (12.0-15.0); Immature Granulocytes Count 0.190 X10^3/uL (0.0-0.0); Mean Corp Hgb Conc 33.5 g/dL (32-36); Mean Corpuscular Volume 91.1 fL (81-99); Mean Platelet Vol. 10.3 fl (6.2-12.0); NRBC Flagged by Analyzer 0 % (0-5); Platelet Count 265 K/mm3 (150-450); RBC Distribution Width CV 12.4 % (11.6-14.6); RBC Distribution Width SD 40.3 fl (35.1-43.9); Red Blood Count 3.50 M/mm3 (4.2-5.4); White Blood Count 12.9 K/mm3 (4.4-11.0)
[2025-09-10 10:49] LABS: Syphilis Antibodies Nonreactive (Nonreactive)
[2025-09-10] MEDS: Lactated Ringers 1,000 ML 150 ML IV (10:51)
[2025-09-10 11:01] LABS: Barbiturate Urine NEGATIVE (< 200 ng/mL); Benzodiazepine Urine NEGATIVE (< 200 ng/mL); PCP Urine NEGATIVE (< 25 ng/mL); THC Urine PRESUMPTIVE POSITIVE (< 50 ng/mL)
[2025-09-10] MEDS: Lactated Ringers 1,000 ML 1000 ML IV (12:46)
[2025-09-10] MEDS: Cefazolin 1 GM/5 ML Vial 3 GM IV (12:49)
--- NOTE | 2025-09-10 12:51 | PCM.HP.OB ---
HPI - General General Date of Admission: 09/10/25 Date of Service: 09/10/25 Chief Complaint: repeat HPI Narrative COLTEN YORK, is a 30 F who presents for repeat . GDM on insulin for fasting BG. Maternal Data Information Final CHARLI: 09/17/25 Gestational age: 39 week [facility] Medical History (Updated 09/10/25 @ 20:[address] Ruchi Irving MD) Breech presentation Depression Family history of congenital heart defect Hyperprolactinemia Gestational diabetes Use of cannabinoid edibles History of depression Hyperprolactinemia Home Medications ?Medication ?Instructions ?Recorded ?Last Taken ?Type vit no.95-ferrous 1 ea PO DAILY 10/25/19 09/09/25 History fumarate 28 mg-folic acid 800 mcg tablet omeprazole 20 mg capsule,delayed 20 mg PO DAILY nausea #30 CAPSULES 07/11/23 07/14/25 Rx release albuterol (refill) 90 mcg inhalation asthma 09/10/25 Unknown History mcg/actuation aerosol inhaler insulin NPH isoph U-100 human 100 10 unit subcut QHS diabetic 09/10/25 09/09/25 20:00 History unit/mL (3 mL) subcutaneous pen (Humulin N NPH U-100 Insulin KwikPen) Allergy/AdvReac Type Severity Reaction Status Date / Time coconut Allergy Rash Verified 09/10/25 09:44 dimethicone (From SanaDermRx) Allergy Rash Verified 09/10/25 09:44 guaifenesin (From Mucinex) Allergy Hives Verified 09/10/25 09:44 triamcinolone (From Allergy Rash Verified 09/10/25 09:44 SanaDermRx) sertraline HCl (From Zoloft) AdvReac Other Verified 09/10/25 09:44 Surgical History (Updated 09/10/25 @ 20:[address] Ruchi Irving MD) Hx of section Social History household members: spouse housing: house Smoking Status: Light Smoker (<10/day) alcohol intake: current alcohol intake frequency: holidays/special occasions only History 2 Elective abortions Hx Para 1 Spontaneous abortions Hx # Term Pregnancies Ectopic pregnancies Hx # Pregnancies Multiple births # of living children NST FHR Rate Baby A Baseline: 140 Variability:: Moderate Accelerations:: 15 x 15 NST Reactive:: Yes ROS Constitutional Constitutional: Denies fatigue, fever(s) or malaise Eyes Eyes: Denies change in vision ENT HEENT: Denies dizziness or headache(s) Cardiovascular Cardiovascular: Denies chest pain, dyspnea or lightheadedness Respiratory/Chest Respiratory/Chest: Denies cough or dyspnea Gastrointestinal Gastrointestinal: Denies change in bowel habits Genitourinary Genitourinary: Denies burning urination or genital lesions Integumentary Integumentary: Denies rash Neurologic Neurologic: Denies confusion, dizziness, headache(s), numbness or weakness Vital Signs Vital Signs Vital Signs: 09/10/25 10:09 Temperature 97.5 F L Temperature Source Temporal Pulse Rate 80 Respiratory Rate 16 Blood Pressure 124/78 H Blood Pressure Mean 93 Blood Pressure Source Monitor Blood Pressure Position Semi-Fowlers Blood Pressure Location Right Arm Pulse Ox 100 Oxygen Delivery Method Room Air Weight Weight: 120.746 kg Body Mass Index (BMI) 44.3 Labs Labs Labs: Blood Type A POSITIVE Antibody Screen NEGATIVE Hct, (37-47) 31.9 % L Hgb, (12.0-15.0) 10.7 g/dL L Syphilis Total Ab, (Nonreactive) Nonreactive Rhogam given: No Assessment & Plan (1) 39 weeks gestation of : (2) Previous section complicating : (3) Gestational diabetes: QUALIFIERS: Gestational diabetes mellitus control: insulin-controlled Trimester: third trimester Qualified Code(s): O24.414 - Gestational diabetes mellitus in , insulin controlled PLAN: Plan repeat
[2025-09-10] MEDS: morphine PF (epidural) 5 MG/10 ML Vial INTRATH (13:09)
[2025-09-10] MEDS: Midazolam 2 MG/2 ML Syringe IV (13:48)
[2025-09-10] MEDS: fentaNYL 100 MCG/2 ML Ampul 200 MCG IV (14:01)
[2025-09-10] MEDS: Oxytocin 15 Units/NS 250ml 15 UNITS/250 ML IV.SOLN 83 UNITS IV (14:20)
--- NOTE | 2025-09-10 14:51 | EX.PCM.OBRPT ---
Assessment & Plan (1) Previous section complicating : (2) 39 weeks gestation of : (3) Gestational diabetes: QUALIFIERS: Gestational diabetes mellitus control: insulin-controlled Trimester: third trimester Qualified Code(s): O24.414 - Gestational diabetes mellitus in , insulin controlled Maternal Data Information Final CHARLI: 09/17/25 Gestational age: 39 Operative Report (OB) Procedure Details Date of Procedure: 09/10/25 Procedure Start Time: 14:19 Procedure Stop Time: 14:50 Time of Delivery: 14:22 Pre-Operative Diagnosis: Repeat Elective Post-Operative Diagnosis: Same as Pre-operative diagnosis Classification: Scheduled Type of Anesthesia: General and Spinal Antibiotic Given: Ancef 3 grams IV x1 Drain: You to straight drain Estimated Blood Loss: 800 Findings Description of surgery: Patient taken to the OR where spinal and You were placed. The spinal was difficult and did not set up. Patient elected general anesthesia. She was prepped and draped in the normal sterile fashion. General anesthesia was induced. A Pfannenstiel incision was made and carried down to the underlying fascia. The fascia was incised in the midline and extended laterally. The fascia was dissected from the muscle. The muscles divided in the midline. The peritoneum was entered bluntly and extended manually. A bladder blade was placed. A low transverse incision was made and extended bluntly. The head was elevated to the incision. The shoulders delivered easily. There was a cord around the neck x 2. The cried upon delivery. The cord was cut and clamped. The placenta was delivered with vitaliy traction. The uterus was exteriorized and cleared of all clot and debris. The incision was repaired with 1-0 Vicryl x 2. The uterus was returned the abdomen. The gutter cleared of all clots. The peritoneum was closed with 2-0 Monocryl. The fascia was closed with 1-0 Vicryl. The subcutaneous tissue was reapproximated with 2-0 Monocryl. The skin was closed with 4-0. I performed the major parts of the procedure with the RFNA assisting with retraction and closing the skin. The sponge lap and needle count was correct x 2 Surgical findings: Thin lower uterine segment Presentation: Vertex and KEILY Amniotic Membrane Rupture Type: Artificial Amniotic Fluid Description: Clear Placental Delivery Description: Spontaneous Placenta Disposition: [facility] Specimen collected: No Cord Vessel Description: 3 Vessels Cord Entanglement: Around neck x 2, loose Nuchal Cord Compression: Without compression Infant A gender: Female (1 minute): 2 (5 minute): 8 Delayed Cord Clamping: No Pension Consultant top polisher: Yes Junior Php Developer: Quiana Tolbert Tasks completed by construction administrative assistant: Opening, Closing, Opening & closing and Retracting Complications Complications: No
[2025-09-10] MEDS: Ketorolac 30 MG/ML Syringe IV ×2 (15:03→20:32)
[2025-09-10] MEDS: Lactated Ringers 1,000 ML 100 ML IV (17:33)
[2025-09-11] MEDS: 0.9% Saline Lock 10 ML Syringe IV ×4 (01:41→10:37)
[2025-09-11] MEDS: Ketorolac 30 MG/ML Syringe IV ×2 (03:02→08:21)
[2025-09-11 03:05] VITALS: BP 117/72; PULSE 67; RESP 16; TEMP 36.2; O2SAT 100
[2025-09-11 06:14] LABS: Hematocrit 30.2 % (37-47); Hemoglobin 9.8 g/dL (12.0-15.0); Mean Corp Hgb Conc 32.5 g/dL (32-36); Mean Corpuscular Volume 91.8 fL (81-99); Mean Platelet Vol. 9.8 fl (6.2-12.0); Platelet Count 245 K/mm3 (150-450); RBC Distribution Width CV 12.4 % (11.6-14.6); RBC Distribution Width SD 41.0 fl (35.1-43.9); Red Blood Count 3.29 M/mm3 (4.2-5.4); White Blood Count 22.3 K/mm3 (4.4-11.0)
[2025-09-11 08:00] VITALS: BP 125/91; PULSE 65; RESP 16; TEMP 36.6; O2SAT 100
[2025-09-11] MEDS: Senna/Docusate Sodium 1 Tablet PO (10:35)
[2025-09-11 11:57] VITALS: BP 127/76; PULSE 80; RESP 14; TEMP 36.1; O2SAT 99
--- NOTE | 2025-09-11 17:34 | PCM.DC.SUM ---
Providers Date of Admission: 09/10/25 Primary Care Physician: TAWANA Goode Reason For Visit: REPEAT C SECTION Diagnosis Discharge Diagnosis (1) Previous section complicating : Status: Acute Code(s): O34.219 - Maternal care for unspecified type scar from previous delivery (2) 39 weeks gestation of : Status: Acute Code(s): Z3A.39 - 39 weeks gestation of (3) Gestational diabetes: Status: Acute Code(s): O24.419 - Gestational diabetes mellitus in , unspecified control Qualifiers: Gestational diabetes mellitus control: insulin-controlled Trimester: third trimester Qualified Code(s): O24.414 - Gestational diabetes mellitus in , insulin controlled Medications at Discharge Home Medications vit no.95-ferrous fumarate 28 mg-folic acid 800 mcg tablet 1 ea PO DAILY 10/25/19 albuterol (refill) 90 mcg/actuation aerosol inhaler mcg inhalation asthma 09/10/25 acetaminophen 500 mg tablet 1,000 mg (2 x 500 mg) PO Q6H #0 tabs 09/11/25 ibuprofen 600 mg tablet 600 mg PO Q6H #0 tabs 09/11/25 oxycodone 5 mg tablet 5 - 10 mg (1 - 2 x 5 mg) PO Q4H PRN PRN Pain Score 4-10 3 days #10 tabs 09/11/25 sennosides 8.6 mg-docusate sodium 50 mg tablet (Stimulant Laxative Plus) 1 - 2 tab PO DAILY #0 tabs 09/11/25 Hospital Course Operations section Procedures None Summary of Care Provided Minutes Spent on Discharge: 15 Hospital Course: Patient had section. Hospital course was uneventful. Physical Exam Narrative Patient seen at bedside due to requesting to be discharged home after 24 hours. Ambulating and voiding without difficulty. Denies headache, vision changes, SOB, or CP. independently. Const alert and no apparent distress General Appearance: cooperative and comfortable Exam Limitations: no limitations HEENT normocephalic Eyes General Eye: normal appearance of both eyes Neck full ROM General: normal visual inspection Chest Chest: symmetrical chest wall rise Resp normal respiratory effort and normal air movement Effort and Inspection: symmetric chest movement Auscultation: clear to auscultation bilaterally Cardio regular rate and regular rhythm GI normal to inspection, nondistended, normoactive bowel sounds Back/Spine normal ROM Extremity full ROM and no calf tenderness General Extremity: normal exam except as noted Skin no rashes or lesions noted Wound Narrative: Dressing is dry and intact. Neuro CN's II-XII intact bilaterally Psych mental status grossly normal Weight / BMI Weight Weight: 266 lb 3.2 oz Body Mass Index (BMI) 44.3 ABG / Lab / Microbiology Data 09/11/25 06:05 Laboratory: Laboratory Results - last 24 hr 09/11/25 06:03: POC Glucose 81 09/11/25 06:05: WBC 22.3 H, RBC 3.29 L, Hgb 9.8 L, Hct 30.2 L, MCV 91.8, MCH 29.8, MCHC 32.5, RDW Std Deviation 41.0, RDW Coeff of Srinivas 12.4, Plt Count 245, MPV 9.8 D/C Instructions Discharge Activity: May Drive (2 weeks) and May Shower May resume sexual activity in: 6-8 weeks Weight Bearing Status: Weight bearing as tolerated Lifting Restricted to (Lbs): 25 Call your doctor if your incision/area has: Continuous Slow Oozing, Sudden Increased Bleeding, Increased Pain/ Swelling, Increased Redness, Foul Smelling Discharge and Swelling at the incision site Call your doctor if you observe: Fever of 101 or Higher, Numbness or Tingling, Using more than 1 pad per hour, Shortness of breath, Dizziness, Swelling in the ankles, Chest pain, Calf discomfort and Uncontrolled pain Suture Line Care: Avoid Pulling/Pushing Remove Dressing in: 5 days (Remove yourself or call office and schedule appointment for dressing removal.) DC O2, CPAP, BIPAP Needs Home O2 Discharge instructions: No When: 5 days for dressing removal or 2 weeks for post appointment. Meaningful Use Info Meaningful Use Meaningful Use Diagnoses (Choose all that apply): None applicable Discharge Plan Admission Admit Date/Time: 09/10/25 09:31 Primary Reason for Your Visit: Delivery Attending Provider: Ruchi Irving Primary Care Provider: Kalpana Renee Discharge Orders/Prescriptions Prescriptions: New sennosides-docusate sodium [Stimulant Laxative Plus] 8.6-50 mg Tablet 1 - 2 tab PO DAILY Qty: 0 0RF acetaminophen 500 mg Tablet 1,000 mg PO Q6H Qty: 0 0RF ibuprofen 600 mg Tablet 600 mg PO Q6H Qty: 0 0RF oxycodone 5 mg Tablet 5 - 10 mg PO Q4H PRN PRN (Reason: Pain Score 4-10) 3 Days Qty: 10 0RF Continued PNV no.95-ferrous fumarate-FA 1 EACH tablet 1 ea PO DAILY albuterol (refill) 90 mcg/actuation aerosol inhalation Discontinued omeprazole 20 mg capsule,delayed release(DR/EC) 20 mg PO DAILY Qty: 30 0RF Humulin N NPH Insulin KwikPen 100 unit/mL (3 mL) insulin pen 10 unit subcut QHS Patient Comments: 18 units at bedtime Referrals / Follow Up: Kalpana Renee, ASSOCIATE PROGRAMMER [Primary Care Provider, Family Practice] Disposition Disposition (needs filled in before D/C Order can be placed): Home, Self Care
--- NOTE | 2025-09-18 10:57 | NURSING ---
Follow up phone call intervention not done, phone call not made.
== END 2025-09-11 17:30 | disposition home or self-care (01) | DRG 540 ==
PROVIDERS: Admitting Provider Obstetrics & Gynecology; PCP Clinical Nurse Specialist Adult Health; Referring Provider Obstetrics & Gynecology; Visit Provider Obstetrics & Gynecology
PROC: 10D00Z1 Extraction of Products of Conception, Low, Open Approach (ICD-10-PCS; CPT 59514; principal; 2025-09-10 11:45)
DX: O24.414 Gestational diabetes mellitus in pregnancy, insulin controlled (principal); F17.210 Nicotine dependence, cigarettes, uncomplicated; Z3A.39 39 weeks gestation of pregnancy; Z79.899 Other long term (current) drug therapy; O99.334 Smoking (tobacco) complicating childbirth; Z37.0 Single live birth; O69.81X0 Labor and delivery complicated by cord around neck, without compression, not applicable or unspecified; O34.219 Maternal care for unspecified type scar from previous cesarean delivery
CPT/HCPCS: 59025; 59050; 80307; 82962; 85025; 85027; 86780; 86850; 86900; 86901; 99221; A4216; G0378; J2405